=== PATIENT | female | born 1950 | race Caucasian/White ===

== ENCOUNTER 2019-08-11 14:56 | Emergency (ER) | payer MEDICARE ==
[2019-08-11 15:01] VITALS: TEMP 98.9
[2019-08-11] MEDS ORDERED: SODIUM CHLORIDE 0.9% 500 ML 500 ML IV STA (15:08)
[2019-08-11] MEDS ORDERED: IPRATROPIUM 0.5 MG/2.5 ML NEBU INHALATION STA (15:08)
[2019-08-11] MEDS ORDERED: ALBUTEROL NEBULIZED 2.5 MG/3 ML INHALATION STA (15:08)
[2019-08-11] MEDS ORDERED: methylPREDNISolone SOD SUCCI 125 MG/2 ML VIAL IV STA (15:08)
--- NOTE | 2019-08-11 15:22 | ED ---
General Adult HPI - General Chief complaint: Shortness of Breath Stated complaint: heart issues Time Seen by Provider: 08/11/19 15:03 Source: patient, EMS, RN notes reviewed, old records reviewed Mode of arrival: EMS Limitations: no limitations - History of Present Illness Initial comments: 69-year-old female history of COPD presenting for evaluation of palpitations and dyspnea. Patient was at home, she suddenly felt palpitations without chest pain. She does have baseline dyspnea secondary to COPD. She is not currently on home oxygen. She has cough which is at baseline. She denies fever. She denies URI symptoms. She denies abdominal pain nausea vomiting. Denies lower extremity pain or swelling. No history of DVT or PE. - Related Data Home Medications Medication Instructions Recorded Confirmed Apixaban [Eliquis] 5 mg PO BID 08/11/19 08/11/19 Atorvastatin Calcium [Lipitor] 10 mg PO HS 08/11/19 08/11/19 Citalopram Hydrobromide [CeleXA] 20 mg PO DAILY 08/11/19 08/11/19 Diltiazem HCl 30 mg PO Q6H 08/11/19 08/11/19 HYDROcodone/APAP 7.5-325MG [[place] 1 tab PO TID 08/11/19 08/11/19 7.5-325] Insulin NPH Hum/Reg Insulin Hm 20 units SQ BID 08/11/19 08/11/19 [Novolin 70-30 Flexpen] Isosorbide Mononitrate [Isosorbide 30 mg PO DAILY 08/11/19 08/11/19 Mononitrate ER] Metoprolol Succinate (ER) [Toprol 50 mg PO DAILY 08/11/19 08/11/19 Xl] Omeprazole 20 mg PO DAILY PRN 08/11/19 08/11/19 Thyroid,Pork [[place] Thyroid] 180 mg PO DAILY 08/11/19 08/11/19 metFORMIN HCL 1,000 mg PO BID 08/11/19 08/11/19 Previous Rx's Medication Instructions Recorded Azithromycin [Zithromax Z-pack] 0 mg PO DIRECTED #6 tab 08/11/19 Allergies Allergy/AdvReac Type Severity Reaction Status Date / Time Iodinated Contrast Media Allergy Anaphylaxis Verified 08/11/19 16:13 moxifloxacin [From Avelox] Allergy Unknown Verified 08/11/19 16:13 Penicillins Allergy Anaphylaxis Verified 08/11/19 16:13 Review of Systems ROS Statement: Those systems with pertinent positive or pertinent negative responses have been documented in the HPI. ROS Other: All systems not noted in ROS Statement are negative. Past Medical History Past Medical History: COPD History of Any Multi-Drug Resistant Organisms: None Reported Past Surgical History: Breast Surgery, Cholecystectomy Past Psychological History: No Psychological Hx Reported Smoking Status: Current every day smoker Past Alcohol Use History: None Reported Past Drug Use History: None Reported General Exam Limitations: no limitations General appearance: alert, in distress Head exam: Present: atraumatic, normocephalic Eye exam: Present: normal appearance, PERRL ENT exam: Present: normal exam Neck exam: Present: normal inspection. Absent: tenderness, meningismus Respiratory exam: Present: respiratory distress, wheezes, rhonchi, decreased breath sounds Cardiovascular Exam: Present: normal rhythm, tachycardia GI/Abdominal exam: Present: soft. Absent: distended, tenderness, guarding, rebound Extremities exam: Present: normal inspection, normal capillary refill. Absent: pedal edema, calf tenderness Back exam: Present: normal inspection Neurological exam: Present: alert, oriented X3 Psychiatric exam: Present: anxious Skin exam: Present: intact, diaphoretic. Absent: cyanosis Course Vital Signs 08/11/19 08/11/19 08/11/19 14:58 15:01 15:04 Temperature 98.9 F Pulse Rate 101 H Respiratory 24 24 Rate Blood Pressure 134/79 O2 Sat by Pulse 88 L 93 L Oximetry 08/11/19 08/11/19 08/11/19 15:29 15:40 16:00 Temperature Pulse Rate 112 H 103 H 99 Respiratory 24 Rate Blood Pressure 117/68 O2 Sat by Pulse 93 L Oximetry 08/11/19 16:34 Temperature Pulse Rate 98 Respiratory 16 Rate Blood Pressure 133/72 O2 Sat by Pulse 95 Oximetry EKG Findings - EKG Comments: EKG Findings:: EKG: Sinus tachycardia rate of 109, CO interval 168 QRS duration 70, QTC 447, no ST segment elevation, poor baseline with artifact Medical Decision Making - Medical Decision Making 69-year-old female presenting with cough, dyspnea, palpitations. Patient's found to be in sinus rhythm with moderate respiratory distress on evaluation. She has a bronchospastic cough and wheezing throughout. Workup is initiated r evealing leukocytosis 13.7, stable hemoglobin. Mild lactic acid of 2.6. She has a d-dimer which is elevated at 1.[address] angiography emergency department. She has a negative troponin negative BMP. Chest x-ray showing concern for nodularity and possible metastatic lung disease. CT was performed given the elevated d-dimer and chest x-ray findings. Status show multiple pulmonary nodules and both hilar and mediastinal lymphadenopathy. My initial plan was to admit this patient with pulmonology and oncology on consult. Patient declines. Further history from the patient does indicate that she has a planned appointment with oncology for later this month. She prefers to maint ain this appointment and does not want to be admitted at this time. She states her breathing is improved and she wishes to be discharged. I recommended antibiotics and steroids for her COPD she declines steroids. - Lab Data Result diagrams: 08/11/19 15:10 08/11/19 15:10 Lab Results 08/11/19 08/11/19 08/11/19 Range/Units 15:10 15:10 15:10 WBC 13.7 H (3.8-10.6) k/uL RBC 5.17 (3.80-5.40) m/uL Hgb 14.0 (11.4-16.0) gm/dL Hct 43.8 (34.0-46.0) % MCV 84.6 (80.0-100.0) fL MCH 27.0 (25.0-35.0) pg MCHC 31.9 (31.0-37.0) g/dL RDW 14.0 (11.5-15.5) % Plt Count 479 H (150-450) k/uL Neutrophils % 82 % Lymphocytes % 9 % Monocytes % 5 % Eosinophils % 3 % Basophils % 0 % Neutrophils # 11.2 H (1.3-7.7) k/uL Lymphocytes # 1.2 (1.0-4.8) k/uL Monocytes # 0.6 (0-1.0) k/uL Eosinophils # 0.5 (0-0.7) k/uL Basophils # 0.0 (0-0.2) k/uL Hypochromasia Slight PT 9.6 (9.0-12.0) sec INR 0.9 (<1.2) APTT 23.7 (22.0-30.0) sec D-Dimer 1.73 H (<0.60) mg/L FEU Sodium 132 L (137-145) mmol/L Potassium 4.1 (3.5-5.1) mmol/L Chloride 95 L (98-107) mmol/L Carbon Dioxide 30 (22-30) mmol/L Anion Gap 7 mmol/L BUN 7 (7-17) mg/dL Creatinine 0.52 (0.52-1.04) mg/dL Est GFR (CKD-EPI)AfAm >90 (>60 ml/min/1.73 sqM) Est GFR (CKD-EPI)NonAf >90 (>60 ml/min/1.73 sqM) Glucose 153 H (74-99) mg/dL Plasma Lactic Acid Severo (0.7-2.0) mmol/L Calcium 9.0 (8.4-10.2) mg/dL Magnesium 1.7 (1.6-2.3) mg/dL Total Bilirubin 0.5 (0.2-1.3) mg/dL AST 24 (14-36) U/L ALT 10 (4-34) U/L Alkaline Phosphatase 146 H (38-126) U/L Troponin I (0.000-0.034) ng/mL NT-Pro-B Natriuret Pep pg/mL Total Protein 7.0 (6.3-8.2) g/dL Albumin 3.8 (3.5-5.0) g/dL 08/11/19 08/11/19 08/11/19 Range/Units 15:10 15:10 15:10 WBC (3.8-10.6) k/uL RBC (3.80-5.40) m/uL Hgb (11.4-16.0) gm/dL Hct (34.0-46.0) % MCV (80.0-100.0) fL MCH (25.0-35.0) pg MCHC (31.0-37.0) g/dL RDW (11.5-15.5) % Plt Count (150-450) k/uL Neutrophils % % Lymphocytes % % Monocytes % % Eosinophils % % Basophils % % Neutrophils # (1.3-7.7) k/uL Lymphocytes # (1.0-4.8) k/uL Monocytes # (0-1.0) k/uL Eosinophils # (0-0.7) k/uL Basophils # (0-0.2) k/uL Hypochromasia PT (9.0-12.0) sec INR (<1.2) APTT (22.0-30.0) sec D-Dimer (<0.60) mg/L FEU Sodium (137-145) mmol/L Potassium (3.5-5.1) mmol/L Chloride (98-107) mmol/L Carbon Dioxide (22-30) mmol/L Anion Gap mmol/L BUN (7-17) mg/dL Creatinine (0.52-1.04) mg/dL Est GFR (CKD-EPI)AfAm (>60 ml/min/1.73 sqM) Est GFR (CKD-EPI)NonAf (>60 ml/min/1.73 sqM) Glucose (74-99) mg/dL Plasma Lactic Acid Severo 2.6 H* (0.7-2.0) mmol/L Calcium (8.4-10.2) mg/dL Magnesium (1.6-2.3) mg/dL Total Bilirubin (0.2-1.3) mg/dL AST (14-36) U/L ALT (4-34) U/L Alkaline Phosphatase (38-126) U/L Troponin I <0.012 (0.000-0.034) ng/mL NT-Pro-B Natriuret Pep 394 pg/mL Total Protein (6.3-8.2) g/dL Albumin (3.5-5.0) g/dL Critical Care Time Critical Care Time: Yes Total Critical Care Time: 35 Disposition Clinical Impression: Acute exacerbation of chronic obstructive pulmonary disease, Pulmonary nodule, Mediastinal lymphadenopathy Disposition: HOME SELF-CARE Condition: Fair Instructions (If sedation given, give patient instructions): COPD (Chronic Obstructive Pulmonary Disease) (ED), Pulmonary Nodules (ED), Lymphadenopathy (ED) Additional Instructions: Please follow up with your planned oncology appointment. Please follow up with her primary care physician. Please return with worsening or changing symptoms. Prescriptions: Azithromycin [Zithromax Z-pack] 0 mg PO DIRECTED #6 tab Is patient prescribed a controlled substance at d/c from ED?: No Referrals: CamachoBela toribio DO [Primary Care Provider] - 1-2 days Time of Disposition: 17:49
[2019-08-11 15:27] LABS: Basophils % (A) 0 %; Eosinophils # (A) 0.5 k/uL (0-0.7); Eosinophils % (A) 3 %; HCT 43.8 % (34.0-46.0); Hypochromasia Slight; Lymphocytes # (A) 1.2 k/uL (1.0-4.8); Lymphocytes % (A) 9 %; MCHC 31.9 g/dL (31.0-37.0); MCV 84.6 fL (80.0-100.0); Monocytes # (A) 0.6 k/uL (0-1.0); Monocytes % (A) 5 %; Neutrophils # (A) 11.2 k/uL (1.3-7.7); Neutrophils % (A) 82 %; Platelet Count 479 k/uL (150-450); RBC 5.17 m/uL (3.80-5.40); WBC 13.7 k/uL (3.8-10.6)
[2019-08-11 15:38] LABS: ALT 10 U/L (4-34); AST 24 U/L (14-36); African American GFR (CKD) >90 (>60 ml/min/1.73 sqM); Albumin 3.8 g/dL (3.5-5.0); Alkaline Phosphatase 146 U/L (38-126); Anion Gap 7 mmol/L; Blood Urea Nitrogen 7 mg/dL (7-17); Carbon Dioxide 30 mmol/L (22-30); Chloride 95 mmol/L (98-107); Glucose 153 mg/dL (74-99); Magnesium 1.7 mg/dL (1.6-2.3); Non-African American GFR(CKD) >90 (>60 ml/min/1.73 sqM); Potassium 4.1 mmol/L (3.5-5.1); Sodium 132 mmol/L (137-145); Total Bilirubin 0.5 mg/dL (0.2-1.3)
[2019-08-11 15:41] LABS: INR 0.9 (<1.2); Partial Thromboplastin Time 23.7 sec (22.0-30.0); Prothrombin Time 9.6 sec (9.0-12.0)
[2019-08-11 15:42] LABS: D-Dimer 1.73 mg/L FEU (<0.60)
[2019-08-11] MEDS ORDERED: diphenhydrAMINE 50 MG/ML 1 ML VIAL IVP STA (16:17)
[2019-08-11] MEDS ORDERED: FAMOTIDINE 20 MG/2 ML VIAL IV STA (16:17)
[2019-08-11 16:36] VITALS: RESP 16
--- NOTE | 2019-08-11 16:44 | XR ---
EXAMINATION TYPE: XR chest 2V DATE OF EXAM: 08/11/2019 COMPARISON: NONE HISTORY: Tachycardia TECHNIQUE: 2 views FINDINGS: Heart and mediastinum are normal. There is a diffuse patchy nodular infiltrate throughout t he lungs. There is left-sided central venous catheter with the tip in the superior vena cava. There i s mild perihilar interstitial edema. There is no pleural effusion. There is no heart failure. IMPRESSION: Mild perihilar interstitial edema with nodular pulmonary infiltrate could relate to metas tatic disease. Normal heart.
--- NOTE | 2019-08-11 17:26 | CT ---
EXAMINATION TYPE: CT angio chest DATE OF EXAM: 08/11/2019 COMPARISON: None HISTORY: SOB, chest pain CT DLP: 342.5 mGycm Automated exposure control for dose reduction was used. CONTRAST: Performed with IV Contrast, patient injected with 68cc mL of Isovue 370. Multiple axial sections were obtained from the thoracic inlet to the diaphragm with intravenous contr ast. There are 3-D post processed images. There is mild emphysematous change in the upper lobes. There are numerous pulmonary nodules throughou t both lungs. Nodules are noncalcified and measure up to 13 mm. There is mild increased interstitial density in both lung casarez. Heart size is normal. There is no pericardial effusion. There are multiple enlarged bronchial lymph nodes that measure up to 2.5 cm. There is enlarged subcar inal lymph node that measures 3 cm. There is anterior mediastinal adenopathy with lymph nodes up to 2 cm. I see no filling defects in the pulmonary arteries. Thoracic aorta is atheromatous. There is no aneur ysm or dissection. Bony thorax appears intact. There is no compression fracture. There is low-density rounded 2 cm area anterior right kidney was probably a cortical cyst. Upper abdominal images show extensive retroperitoneal adenopathy with lymph nodes up to 2.5 cm around the upper abdominal aorta. There is also celiac and mesenteric lymphadenopathy. IMPRESSION: No evidence of pulmonary embolism. Extensive nodular density throughout both lungs consistent with me tastatic disease. Extensive mediastinal and bronchial adenopathy. Mild pulmonary emphysema. Upper abd ominal lymphadenopathy.
[2019-08-11 17:59] VITALS: BP 142/76; PULSE 97
== END 2019-08-11 17:58 | disposition home or self-care (01) ==
LOC: EC 14:56
DX: J44.1 Chronic obstructive pulmonary disease with (acute) exacerbation (principal); R91.1 Solitary pulmonary nodule; R59.0 Localized enlarged lymph nodes; F17.200 Nicotine dependence, unspecified, uncomplicated; Z79.01 Long term (current) use of anticoagulants; Z79.899 Other long term (current) drug therapy; Z79.4 Long term (current) use of insulin; Z79.890 Hormone replacement therapy; Z88.0 Allergy status to penicillin; Z88.1 Allergy status to other antibiotic agents; Z91.041 Radiographic dye allergy status
CPT/HCPCS: 36415; 94640; 93005; 85379; 83880; 80053; 83605; 83735; 84484; 85025; 85610; 85730; 71046; 71275; 99291; 96374; 96375 ×2; 96361 ×3; J1200; J2930; Q9967

== ENCOUNTER 2019-09-23 20:04 | Inpatient (IN) | payer MEDICARE, OTHER ==
[2019-09-23] MEDS ORDERED: SODIUM CHLORIDE 0.9% 1,000 ML IV STA ×2 (20:17→22:29)
--- NOTE | 2019-09-23 20:21 | ED ---
General Adult HPI - General Stated complaint: dehydration Time Seen by Provider: 09/23/19 20:11 Source: patient, RN notes reviewed, old records reviewed Mode of arrival: EMS Limitations: no limitations - History of Present Illness Initial comments: Patient is a pleasant 69-year-old female presenting to the emergency department with concerns for dehydration. Patient has reported active breast and lung cancer. Patient states she does have some mild abdominal discomfort however this is chronic and unchanged. Patient has had decreased appetite and oral intake recently. Patient is concerned she is dehydrated. Patient feels fatigued. No confusion. No vomiting or diarrhea. Patient has DO NOT RESUSCITATE papers. - Related Data Home Medications Medication Instructions Recorded Confirmed Apixaban [Eliquis] 5 mg PO BID 08/11/19 08/11/19 Atorvastatin Calcium [Lipitor] 10 mg PO HS 08/11/19 08/11/19 Citalopram Hydrobromide [CeleXA] 20 mg PO DAILY 08/11/19 08/11/19 Diltiazem HCl 30 mg PO Q6H 08/11/19 08/11/19 HYDROcodone/APAP 7.5-325MG [[place] 1 tab PO TID 08/11/19 08/11/19 7.5-325] Insulin NPH Hum/Reg Insulin Hm 20 units SQ BID 08/11/19 08/11/19 [Novolin 70-30 Flexpen] Isosorbide Mononitrate [Isosorbide 30 mg PO DAILY 08/11/19 08/11/19 Mononitrate ER] Metoprolol Succinate (ER) [Toprol 50 mg PO DAILY 08/11/19 08/11/19 Xl] Omeprazole 20 mg PO DAILY PRN 08/11/19 08/11/19 Thyroid,Pork [[place] Thyroid] 180 mg PO DAILY 08/11/19 08/11/19 metFORMIN HCL 1,000 mg PO BID 08/11/19 08/11/19 Previous Rx's Medication Instructions Recorded Azithromycin [Zithromax Z-pack] 0 mg PO DIRECTED #6 tab 08/11/19 Allergies Allergy/AdvReac Type Severity Reaction Status Date / Time Iodinated Contrast Media Allergy Anaphylaxis Verified 09/23/19 20:45 moxifloxacin [From Avelox] Allergy Unknown Verified 09/23/19 20:45 Penicillins Allergy Anaphylaxis Verified 05/18/20 20:45 Review of Systems ROS Statement: Those systems with pertinent positive or pertinent negative responses have been documented in the HPI. ROS Other: All systems not noted in ROS Statement are negative. Constitutional: Denies: fever Eyes: Denies: eye pain ENT: Denies: ear pain Respiratory: Denies: cough, dyspnea Cardiovascular: Denies: chest pain Endocrine: Reports: fatigue Gastrointestinal: Reports: as per HPI. Denies: vomiting Genitourinary: Denies: dysuria Musculoskeletal: Denies: back pain Skin: Denies: rash Neurological: Reports: as per HPI Past Medical History Past Medical History: COPD History of Any Multi-Drug Resistant Organisms: None Reported Past Surgical History: Breast Surgery, Cholecystectomy Past Psychological History: No Psychological Hx Reported Smoking Status: Current every day smoker Past Alcohol Use History: None Reported Past Drug Use History: None Reported General Exam Limitations: no limitations General appearance: alert, in no apparent distress Head exam: Present: normocephalic Eye exam: Present: normal appearance, PERRL ENT exam: Present: mucous membranes dry Neck exam: Present: normal inspection Respiratory exam: Present: normal lung sounds bilaterally Cardiovascular Exam: Present: regular rate, normal rhythm Expanded Peripheral pulses: 2+: Radial (R), Radial (L), Dorsalis Pedis (R), Dorsalis Pedis (L) GI/Abdominal exam: Present: soft. Absent: distended, tenderness, pulsatile mass Extremities exam: Present: normal inspection Neurological exam: Present: alert, oriented X3, CN II-XII intact. Absent: motor sensory deficit Expanded Neurological exam: Present: protecting the airway Patient oriented to: Present: person, place, time Speech: Present: fluid speech Cranial nerves: EOM's Intact: Normal Motor strength exam: RUE: 5, LUE: 5, RLE: 5, LLE: 5 Eye Response: (4) open spontaneously Motor Response: (6) obeys commands Verbal Response: (5) oriented Psychiatric exam: Present: normal affect, normal mood Skin exam: Present: normal color Course Vital Signs 09/23/19 09/23/19 09/23/19 20:05 21:00 22:00 Temperature 98.3 F Pulse Rate 93 91 89 Respiratory 16 18 16 Rate Blood Pressure 90/39 87/47 87/49 O2 Sat by Pulse 95 95 96 Oximetry EKG Findings - EKG Comments: EKG Findings:: Normal sinus rhythm 94. TX 152. QRS 82. QT 364. QTC 455. Normal axis. T-wave inversion inferior and lead V6. Medical Decision Making - Medical Decision Making Patient reevaluated and updated. Patient is agreeable to admission. Systolic blood pressure 89. Patient given 1 L fluid bolus. Case was discussed in detail with Dr. Bailey who is familiar with this patient. He will admit. He does request consult with Dr. John as well as Dr. Sloan for possible biopsy of lymph nodes of right groin or left cervical region. - Lab Data Result diagrams: 09/23/19 20:31 09/23/19 20:31 Lab Results 09/23/19 09/23/19 09/23/19 Range/Units 20:29 20:31 20:31 WBC 11.6 H (3.8-10.6) k/uL RBC 3.57 L (3.80-5.40) m/uL Hgb 9.5 L (11.4-16.0) gm/dL Hct 30.8 L (34.0-46.0) % MCV 86.4 (80.0-100.0) fL MCH 26.7 (25.0-35.0) pg MCHC 30.9 L (31.0-37.0) g/dL RDW 18.5 H (11.5-15.5) % Plt Count 477 H (150-450) k/uL Neutrophils % 90 % Lymphocytes % 4 % Monocytes % 4 % Eosinophils % 1 % Basophils % 0 % Neutrophils # 10.4 H (1.3-7.7) k/uL Lymphocytes # 0.5 L (1.0-4.8) k/uL Monocytes # 0.5 (0-1.0) k/uL Eosinophils # 0.1 (0-0.7) k/uL Basophils # 0.0 (0-0.2) k/uL Hypochromasia Slight Anisocytosis Slight PT 20.3 H (9.0-12.0) sec INR 2.1 H (<1.2) APTT 32.8 H (22.0-30.0) sec Sodium (137-145) mmol/L Potassium (3.5-5.1) mmol/L Chloride (98-107) mmol/L Carbon Dioxide (22-30) mmol/L Anion Gap mmol/L BUN (7-17) mg/dL Creatinine (0.52-1.04) mg/dL Est GFR (CKD-EPI)AfAm (>60 ml/min/1.73 sqM) Est GFR (CKD-EPI)NonAf (>60 ml/min/1.73 sqM) Glucose (74-99) mg/dL POC Glucose (mg/dL) 101 H (75-99) mg/dL POC Glu Foot Worker ID Abreu, Lizzy Plasma Lactic Acid Severo (0.7-2.0) mmol/L Calcium (8.4-10.2) mg/dL Magnesium (1.6-2.3) mg/dL Total Bilirubin (0.2-1.3) mg/dL AST (14-36) U/L ALT (4-34) U/L Alkaline Phosphatase (38-126) U/L Total Protein (6.3-8.2) g/dL Albumin (3.5-5.0) g/dL Urine Color Urine Appearance (Clear) Urine pH (5.0-8.0) Ur Specific [place] (1.001-1.035) Urine Protein (Negative) Urine Glucose (UA) (Negative) Urine Ketones (Negative) Urine Blood (Negative) Urine Nitrite (Negative) Urine Bilirubin (Negative) Urine Urobilinogen (<2.0) mg/dL Ur Leukocyte Esterase (Negative) Urine RBC (0-5) /hpf Urine WBC (0-5) /hpf Ur Squamous Epith Cells (0-4) /hpf Amorphous Sediment (None) /hpf Urine Bacteria (None) /hpf Hyaline Casts (0-2) /lpf Urine Mucus (None) /hpf 09/23/19 09/23/19 09/23/19 Range/Units 20:31 20:31 21:30 WBC (3.8-10.6) k/uL RBC (3.80-5.40) m/uL Hgb (11.4-16.0) gm/dL Hct (34.0-46.0) % MCV (80.0-100.0) fL MCH (25.0-35.0) pg MCHC (31.0-37.0) g/dL RDW (11.5-15.5) % Plt Count (150-450) k/uL Neutrophils % % Lymphocytes % % Monocytes % % Eosinophils % % Basophils % % Neutrophils # (1.3-7.7) k/uL Lymphocytes # (1.0-4.8) k/uL Monocytes # (0-1.0) k/uL Eosinophils # (0-0.7) k/uL Basophils # (0-0.2) k/uL Hypochromasia Anisocytosis PT (9.0-12.0) sec INR (<1.2) APTT (22.0-30.0) sec Sodium 133 L (137-145) mmol/L Potassium 4.7 (3.5-5.1) mmol/L Chloride 96 L (98-107) mmol/L Carbon Dioxide 23 (22-30) mmol/L Anion Gap 14 mmol/L BUN 56 H (7-17) mg/dL Creatinine 2.57 H (0.52-1.04) mg/dL Est GFR (CKD-EPI)AfAm 21 (>60 ml/min/1.73 sqM) Est GFR (CKD-EPI)NonAf 19 (>60 ml/min/1.73 sqM) Glucose 91 (74-99) mg/dL POC Glucose (mg/dL) (75-99) mg/dL POC Glu Foot Worker ID Plasma Lactic Acid Severo 4.0 H* (0.7-2.0) mmol/L Calcium 8.3 L (8.4-10.2) mg/dL Magnesium 1.6 (1.6-2.3) mg/dL Total Bilirubin 0.5 (0.2-1.3) mg/dL AST 73 H (14-36) U/L ALT 26 (4-34) U/L Alkaline Phosphatase 215 H (38-126) U/L Total Protein 5.4 L (6.3-8.2) g/dL Albumin 3.0 L (3.5-5.0) g/dL Urine Color Yellow Urine Appearance Cloudy H (Clear) Urine pH 5.0 (5.0-8.0) Ur Specific [place] 1.024 (1.001-1.035) Urine Protein 2+ H (Negative) Urine Glucose (UA) Negative (Negative) Urine Ketones Trace H (Negative) Urine Blood Negative (Negative) Urine Nitrite Negative (Negative) Urine Bilirubin 1+ H (Negative) Urine Urobilinogen 2.0 (<2.0) mg/dL Ur Leukocyte Esterase Negative (Negative) Urine RBC 2 (0-5) /hpf Urine WBC 5 (0-5) /hpf Ur Squamous Epith Cells 2 (0-4) /hpf Amorphous Sediment Rare H (None) /hpf Urine Bacteria Moderate H (None) /hpf Hyaline Casts 6 H (0-2) /lpf Urine Mucus Few H (None) /hpf - Radiology Data Radiology results: image reviewed (Chest x-ray shows multiple pulmonary nodules, worsening from previous. Development of [id number] left pleural effusion. Abdominal x-ray shows nonspecific abdomen.) Disposition Clinical Impression: Dehydration, Multiple lung nodules, Pleural effusion Disposition: ADMITTED IP TO THIS HOSP Condition: Serious Is patient prescribed a controlled substance at d/c from ED?: No Referrals: Willard Bailey MD [Primary Care Provider] - 1-2 days Decision Time: 22:31
[2019-09-23 20:36] LABS: Glucose,Whole Blood 101 mg/dL (75-99)
[2019-09-23 20:48] LABS: Anisocytosis Slight; Basophils % (A) 0 %; Eosinophils # (A) 0.1 k/uL (0-0.7); Eosinophils % (A) 1 %; HCT 30.8 % (34.0-46.0); HGB 9.5 gm/dL (11.4-16.0); Hypochromasia Slight; Lymphocytes # (A) 0.5 k/uL (1.0-4.8); Lymphocytes % (A) 4 %; MCH 26.7 pg (25.0-35.0); MCHC 30.9 g/dL (31.0-37.0); MCV 86.4 fL (80.0-100.0); Mean Platelet Volume 8.4; Monocytes # (A) 0.5 k/uL (0-1.0); Monocytes % (A) 4 %; Neutrophils # (A) 10.4 k/uL (1.3-7.7); Neutrophils % (A) 90 %; Platelet Count 477 k/uL (150-450); RBC 3.57 m/uL (3.80-5.40); RDW 18.5 % (11.5-15.5); WBC 11.6 k/uL (3.8-10.6)
[2019-09-23 20:59] LABS: Calcium 8.3 mg/dL (8.4-10.2); Magnesium 1.6 mg/dL (1.6-2.3); Potassium 4.7 mmol/L (3.5-5.1); Total Bilirubin 0.5 mg/dL (0.2-1.3); Total Protein 5.4 g/dL (6.3-8.2)
[2019-09-23 21:04] LABS: INR 2.1 (<1.2); Partial Thromboplastin Time 32.8 sec (22.0-30.0); Prothrombin Time 20.3 sec (9.0-12.0)
--- NOTE | 2019-09-23 21:25 | XR ---
EXAMINATION TYPE: XR chest 2V DATE OF EXAM: 09/23/2019 COMPARISON: 08/11/2019 INDICATION: Weakness lung and breast cancer TECHNIQUE: Frontal and lateral views of the chest are obtained. FINDINGS: The heart size is normal. The pulmonary vasculature is indistinct. Patchy densities are present throughout the bilateral lung casarez can be compatible with metastatic d isease. Findings appear to be worsening over the interval. Small left pleural effusion has developed. Port is present on the left with the tip in the superior vena cava region.. IMPRESSION: 1. Developing multiple pulmonary nodules worsening from comparison. 2. Interval development of a small approaching moderate left pleural effusion.
--- NOTE | 2019-09-23 21:26 | XR ---
EXAMINATION TYPE: XR abdomen 1V DATE OF EXAM: 09/23/2019 COMPARISON: None INDICATION: Abdomen pain history of breast and lung cancer TECHNIQUE: Single view abdomen frontal projection supine view FINDINGS: Nonspecific bowel gas is present within small bowel loops. Air is within the colon. Psoas margins are normal. No organomegaly is present. Right hip prosthesis is present. Vascular calcification is in the splenic artery. Note is again made of multiple pulmonary nodules and a small to moderate left pleural effusion at the lung bases IMPRESSION: 1. Nonspecific abdomen. 2. Please also see chest x-ray from same date
[2019-09-23 22:02] LABS: Amorphous Sediment,Urine Rare /hpf; Appearance,Urine Cloudy (Clear); Bacteria,Urine Moderate /hpf; Bilirubin,Urine 1+ (Negative); Blood,Urine Negative (Negative); Color,Urine Yellow; Glucose,Urine (UA) Negative (Negative); Hyaline Casts,Urine 6 /lpf (0-2); Ketones,Urine Trace (Negative); Leukocyte Esterase,Urine Negative (Negative); Mucus,Urine Few /hpf; Nitrite,Urine Negative (Negative); Protein,Urine 2+ (Negative); RBC,Urine 2 /hpf (0-5); Specific Gravity,Urine 1.024 (1.001-1.035); Squamous Epithelial Cell,Urine 2 /hpf (0-4); WBC,Urine 5 /hpf (0-5)
[2019-09-23] MEDS ORDERED: NALOXONE 0.4 MG/ML 1 ML VIAL IV PRN (22:33)
[2019-09-23] MEDS: SODIUM CHLORIDE 0.9% 1,000 ML IV SCH (23:31)
[2019-09-24] MEDS ORDERED: HYDROcodone/APAP 10-325MG 1 EACH TAB PO ONE (02:32)
[2019-09-24 04:04] LABS: Anisocytosis Slight; Basophils % (A) 0 %; Eosinophils # (A) 0.1 k/uL (0-0.7); Eosinophils % (A) 1 %; HCT 31.1 % (34.0-46.0); HGB 9.3 gm/dL (11.4-16.0); Hypochromasia Marked; Lymphocytes # (A) 0.4 k/uL (1.0-4.8); Lymphocytes % (A) 3 %; MCH 26.3 pg (25.0-35.0); MCHC 29.9 g/dL (31.0-37.0); MCV 88.1 fL (80.0-100.0); Mean Platelet Volume 7.9; Monocytes # (A) 0.5 k/uL (0-1.0); Monocytes % (A) 4 %; Neutrophils # (A) 10.9 k/uL (1.3-7.7); Neutrophils % (A) 90 %; Platelet Count 435 k/uL (150-450); RBC 3.53 m/uL (3.80-5.40); RDW 18.3 % (11.5-15.5)
[2019-09-24 04:26] LABS: Albumin 2.5 g/dL (3.5-5.0); Calcium 7.5 mg/dL (8.4-10.2); Potassium 4.4 mmol/L (3.5-5.1); Total Bilirubin 0.4 mg/dL (0.2-1.3); Total Protein 4.8 g/dL (6.3-8.2)
[2019-09-24] MEDS: PANTOPRAZOLE 40 MG/10 ML VIAL IV SCH (09:55)
[2019-09-24] MEDS ORDERED: MAGNESIUM HYDROXIDE 2,400 MG/10 ML CUP PO PRN (10:00)
[2019-09-24] MEDS ORDERED: LOPERAMIDE 2 MG CAP PO PRN (10:00)
[2019-09-24] MEDS ORDERED: ACETAMINOPHEN TAB 325 MG TAB PO PRN (10:00)
[2019-09-24] MEDS ORDERED: BISACODYL 10 MG SUPP RECTAL PRN (10:00)
[2019-09-24] MEDS: HYDROcodone/APAP 10-325MG 1 EACH TAB PO PRN ×2 (10:27→19:05)
[2019-09-24] MEDS ORDERED: MAGIC CUP PO SCH (12:00)
--- NOTE | 2019-09-24 13:18 | P.HPIM ---
History of Present Illness H&P Date: 09/24/19 Chief Complaint: Hypotension, tachycardia This is a 69-year-old female patient of Dr. Bailey with past medical history of severe COPD and chronic hypoxic respiratory failure, bilateral pulmonary nodules with mediastinal adenopathy and intra-abdominal adenopathy consistent with metastatic disease most likely breast cancer with metastasis, history of left breast cancer and bilateral mastectomies in 2006 followed by chemotherapy and tamoxifen therapy, paroxysmal atrial fibrillation on long-term anticoagulation with eliquis, history of MA and coronary artery disease, hypertension, hyperlipidemia, generalized anxiety disorder, diabetes mellitus type 2, hypothyroidism, generalized osteoarthritis. Patient had a recent right hip fracture secondary to fall status post right hemiarthroplasty on August 25 surgery done at [facility] with Dr. Arciniega and subsequently discharged to [facility] under the care of Dr. Bailey for subacute rehab. Patient was prepared for discharge from rehab yesterday but was found to have a low blood pressure and high heart rate, mental status changes, generalized weakness and inability to stand. Discharge was held and patient was transferred to [facility] for further evaluation. Regarding patient's cancer history, she was followed at [facility] by oncology and apparently had a biopsy done and results were not known. Echocardiogram done on August 25 revealed normal LV function. No valvular heart disease. In the emergency center, patient was found to be afebrile, initial blood pressure 87/47, heart rate in the 90s, pulse ox 95% on room air. WBC 11.6, hemoglobin 9.5, platelet count 477. Sodium 133, potassium 4.7, chloride 96, CO2 23, BUN 56 creatinine 2.57, blood sugar 91. INR 2.1. Lactic acid 4.0. Total bilirubin 0.5, AST 73, ALT 26, alkaline phosphatase 215. Urinalysis cloudy nitrate and leukoesterase negative, bacteria moderate. EKG was a sinus rhythm with T-wave inversion in leads 6. Chest x-ray revealed developing multiple pulmonary nodules worsening from comparison. Interval development of a small approaching moderate left pleural effusion. This was compared to chest x-ray from August 10. Abdominal x-ray revealed nonspecific abdomen. Patient is status post 2 L of IV fluids, admitted to the cardiac stepdown unit and consult requested with Dr. Mackey regarding metastatic disease, Dr. Grider for lymph node biopsy, Dr. De La Vega for lung cancer. COVID-19 testing is pending. Patient states that she wishes to BE a no CODE STATUS. There apparently has been talk of hospice care for the patient. Review Of Systems: Constitutional: No fever, no chills, no night sweats. No weight change. Reports weakness, Reportsfatigue Reports lethargy. Reports daytime sleepiness. EENT: No headache. No blurred vision or double vision, no loss of vision. No loss of Hearing, no ringing in the ears, no dizziness. No nasal drainage or congestion. No epistaxis. No sore throat. Lungs: No shortness of breath, cough, no sputum production. No wheezing. Cardiovascular: No chest pain, no lower extremity edema. No palpitations. No paroxysmal nocturnal dyspnea. No orthopnea. Reports lightheadedness or dizziness. No syncopal episodes. Abdominal: No abdominal pain. No nausea, vomiting. No diarrhea. No constipation. No bloody or tarry stools. No loss of appetite. Genitourinary: No dysuria, increased frequency, urgency. No urinary retention. Musculoskeletal: Reports myalgias. Reports muscle weakness, Reports gait dysfunction, no frequent falls. Reports back pain. No neck pain. Integumentary: Reports wounds, no lesions. No rash or pruritus. No unusual bruising. Neurologic: No aphasia. No facial droop. Reports change in mentation. No head injury. No headache. No paralysis. No paresthesia. Psychiatric: No depression. No anxiety. No mood swings. Endocrine: No abnormal blood sugars. No weight change. No excessive sweating or thirst. No cold intolerance. Past Medical History Past Medical History: COPD Additional Past Medical History / Comment(s): breast and lung cancer History of Any Multi-Drug Resistant Organisms: None Reported Past Surgical History: Breast Surgery, Cholecystectomy Past Psychological History: No Psychological Hx Reported Smoking Status: Current every day smoker Past Alcohol Use History: None Reported Additional Past Alcohol Use History / Comment(s): Patient is a smoker of 2 packs per day for 45 years, currently at a half a pack per day. She denies any alcohol use, marijuana, street drug use. Past Drug Use History: None Reported - Past Family History Father Additional Family Medical History / Comment(s): Patient states that she does not remember her mother or father's medical history, cause of . Brother(s) Additional Family Medical History / Comment(s): Patient states that she has 4 or 5 siblings and one half brother had lung cancer. Patient has 2 daughters which she reports is having no major medical problems. Medications and Allergies Home Medications Medication Instructions Recorded Confirmed Type Apixaban [Eliquis] 5 mg PO BID@0800,1700 08/11/19 09/23/19 History Atorvastatin Calcium [Lipitor] 10 mg PO HS@2100 08/11/19 09/23/19 History Citalopram Hydrobromide [CeleXA] 20 mg PO DAILY@0800 08/11/19 09/23/19 History Insulin NPH Hum/Reg Insulin Hm 5 units SQ BID@0800,1700 08/11/19 09/23/19 History [Novolin 70-30 Flexpen] Isosorbide Mononitrate [Isosorbide 30 mg PO DAILY@0800 08/11/19 09/23/19 History Mononitrate ER] Thyroid,Pork [[place] Thyroid] 180 mg PO DAILY@0600 08/11/19 09/23/19 History metFORMIN HCL 1,000 mg PO BID@0800,1700 08/11/19 09/23/19 History Acetaminophen [Tylenol] 650 mg PO Q4H PRN 09/23/19 09/23/19 History Bisacodyl [Dulcolax] 10 mg RECTAL DAILY PRN 09/23/19 09/23/19 History Docusate [Colace] 100 mg PO BID@0800,1700 09/23/19 09/23/19 History HYDROcodone/APAP 10-325MG [[place] 1 tab PO Q6HR PRN 09/23/19 09/23/19 History 10-325] Loperamide HCl [Imodium A-D] 2 - 4 mg PO DIRECTED PRN 09/23/19 09/23/19 History Magic Cup 1 can PO TID@0800,1200,1700 09/23/19 09/23/19 History Magnesium Hydroxide [Milk of 2,400 mg PO DAILY PRN 09/23/19 09/23/19 History Magnesia] Metoprolol Succinate [Toprol XL] 25 mg PO DAILY@0800 09/23/19 09/23/19 History Mirtazapine [Remeron] 15 mg PO HS@2100 09/23/19 09/23/19 History Na Phos,M-B/Na Phos,Di-Ba [Fleet 133 ml RECTAL DAILY PRN 09/23/19 09/23/19 History Adult] Nicotine 14Mg/24Hr Patch [Habitrol 1 patch TRANSDERM DAILY@0800 09/23/19 09/23/19 History 14Mg/24Hr Patch] traMADol HCL 50 mg PO Q6H PRN 09/23/19 09/23/19 History Allergies Allergy/AdvReac Type Severity Reaction Status Date / Time Iodinated Contrast Media Allergy Anaphylaxis Verified 09/23/19 22:45 moxifloxacin [From Avelox] Allergy Unknown Verified 09/23/19 22:45 Penicillins Allergy Anaphylaxis Verified 09/23/19 22:45 Physical Exam Vitals: Vital Signs Temp Pulse Resp BP Pulse Ox 09/24/19 09:44 86 16 102/57 98 09/24/19 07:37 85 18 106/62 97 09/24/19 06:00 98.1 F 85 16 98/59 96 09/24/19 05:32 88 16 93/56 98 09/24/19 05:00 84 16 88/52 100 09/24/19 04:37 86 16 96/61 99 09/24/19 04:00 105 H 16 92/50 96 09/24/19 03:00 87 16 91/49 96 09/24/19 00:00 85 16 100/53 95 09/23/19 23:00 88 16 94/47 09/23/19 22:00 89 16 87/49 96 09/23/19 21:00 91 18 87/47 95 09/23/19 20:05 98.3 F 93 16 90/39 95 Intake and Output 09/23/19 09/24/19 09/24/19 22:59 06:59 14:59 Other: Weight 81.647 kg Gen: This is a 69-year-old female. She is resting in the ER stretcher and appears to be quite anxious. She denies any pain at the time of evaluation. HEENT: Head is atraumatic, normocephalic. Pupils equal, round. Sclerae is anicteric. NECK: Supple. No JVD. Large cervical lymphadenopathy. No thyromegaly. LUNGS: Diminished breath sounds bilaterally, symmetrical chest expansion, no wheezes, rhonchi. No intercostal retractions. HEART: Irregular rate and rhythm. No murmur. ABDOMEN: Soft. Bowel sounds are present. No masses. No tenderness. EXTREMITIES: No pedal edema. No calf tenderness. Patient has large lymph node to the right groin, several lymph nodes enlarged in the left groin NEUROLOGICAL: Patient is awake, alert and oriented x3, poor short-term memory, intermittently confused, poor historian. Cranial nerves 2 through 12 are grossly intact. Generalized weakness Results CBC & Chem 7: 09/25/19 06:59 09/25/19 06:59 Labs: Abnormal Lab Results - Last 24 Hours (Table) 09/23/19 09/23/19 09/23/19 Range/Units 20:29 20:31 20:31 WBC 11.6 H (3.8-10.6) k/uL RBC 3.57 L (3.80-5.40) m/uL Hgb 9.5 L (11.4-16.0) gm/dL Hct 30.8 L (34.0-46.0) % MCHC 30.9 L (31.0-37.0) g/dL RDW 18.5 H (11.5-15.5) % Plt Count 477 H (150-450) k/uL Neutrophils # 10.4 H (1.3-7.7) k/uL Lymphocytes # 0.5 L (1.0-4.8) k/uL PT 20.3 H (9.0-12.0) sec INR 2.1 H (<1.2) APTT 32.8 H (22.0-30.0) sec Sodium (137-145) mmol/L Chloride (98-107) mmol/L BUN (7-17) mg/dL Creatinine (0.52-1.04) mg/dL POC Glucose (mg/dL) 101 H (75-99) mg/dL Plasma Lactic Acid Severo (0.7-2.0) mmol/L Calcium (8.4-10.2) mg/dL AST (14-36) U/L Alkaline Phosphatase (38-126) U/L Total Protein (6.3-8.2) g/dL Albumin (3.5-5.0) g/dL Urine Appearance (Clear) Urine Protein (Negative) Urine Ketones (Negative) Urine Bilirubin (Negative) Amorphous Sediment (None) /hpf Urine Bacteria (None) /hpf Hyaline Casts (0-2) /lpf Urine Mucus (None) /hpf 09/23/19 09/23/19 09/23/19 Range/Units 20:31 20:31 21:30 WBC (3.8-10.6) k/uL RBC (3.80-5.40) m/uL Hgb (11.4-16.0) gm/dL Hct (34.0-46.0) % MCHC (31.0-37.0) g/dL RDW (11.5-15.5) % Plt Count (150-450) k/uL Neutrophils # (1.3-7.7) k/uL Lymphocytes # (1.0-4.8) k/uL PT (9.0-12.0) sec INR (<1.2) APTT (22.0-30.0) sec Sodium 133 L (137-145) mmol/L Chloride 96 L (98-107) mmol/L BUN 56 H (7-17) mg/dL Creatinine 2.57 H (0.52-1.04) mg/dL POC Glucose (mg/dL) (75-99) mg/dL Plasma Lactic Acid Severo 4.0 H* (0.7-2.0) mmol/L Calcium 8.3 L (8.4-10.2) mg/dL AST 73 H (14-36) U/L Alkaline Phosphatase 215 H (38-126) U/L Total Protein 5.4 L (6.3-8.2) g/dL Albumin 3.0 L (3.5-5.0) g/dL Urine Appearance Cloudy H (Clear) Urine Protein 2+ H (Negative) Urine Ketones Trace H (Negative) Urine Bilirubin 1+ H (Negative) Amorphous Sediment Rare H (None) /hpf Urine Bacteria Moderate H (None) /hpf Hyaline Casts 6 H (0-2) /lpf Urine Mucus Few H (None) /hpf 09/24/19 09/24/19 09/24/19 Range/Units 00:09 03:42 03:42 WBC 12.0 H (3.8-10.6) k/uL RBC 3.53 L (3.80-5.40) m/uL Hgb 9.3 L (11.4-16.0) gm/dL Hct 31.1 L (34.0-46.0) % MCHC 29.9 L (31.0-37.0) g/dL RDW 18.3 H (11.5-15.5) % Plt Count (150-450) k/uL Neutrophils # 10.9 H (1.3-7.7) k/uL Lymphocytes # 0.4 L (1.0-4.8) k/uL PT (9.0-12.0) sec INR (<1.2) APTT (22.0-30.0) sec Sodium 136 L (137-145) mmol/L Chloride (98-107) mmol/L BUN 56 H (7-17) mg/dL Creatinine 2.51 H (0.52-1.04) mg/dL POC Glucose (mg/dL) (75-99) mg/dL Plasma Lactic Acid Severo 3.8 H* (0.7-2.0) mmol/L Calcium 7.5 L (8.4-10.2) mg/dL AST 73 H (14-36) U/L Alkaline Phosphatase 197 H (38-126) U/L Total Protein 4.8 L (6.3-8.2) g/dL Albumin 2.5 L (3.5-5.0) g/dL Urine Appearance (Clear) Urine Protein (Negative) Urine Ketones (Negative) Urine Bilirubin (Negative) Amorphous Sediment (None) /hpf Urine Bacteria (None) /hpf Hyaline Casts (0-2) /lpf Urine Mucus (None) /hpf 09/24/19 09/24/19 Range/Units 03:42 07:24 WBC (3.8-10.6) k/uL RBC (3.80-5.40) m/uL Hgb (11.4-16.0) gm/dL Hct (34.0-46.0) % MCHC (31.0-37.0) g/dL RDW (11.5-15.5) % Plt Count (150-450) k/uL Neutrophils # (1.3-7.7) k/uL Lymphocytes # (1.0-4.8) k/uL PT (9.0-12.0) sec INR (<1.2) APTT (22.0-30.0) sec Sodium (137-145) mmol/L Chloride (98-107) mmol/L BUN (7-17) mg/dL Creatinine (0.52-1.04) mg/dL POC Glucose (mg/dL) (75-99) mg/dL Plasma Lactic Acid Severo 3.1 H* 2.6 H* (0.7-2.0) mmol/L Calcium (8.4-10.2) mg/dL AST (14-36) U/L Alkaline Phosphatase (38-126) U/L Total Protein (6.3-8.2) g/dL Albumin (3.5-5.0) g/dL Urine Appearance (Clear) Urine Protein (Negative) Urine Ketones (Negative) Urine Bilirubin (Negative) Amorphous Sediment (None) /hpf Urine Bacteria (None) /hpf Hyaline Casts (0-2) /lpf Urine Mucus (None) /hpf Assessment and Plan Plan: 1. Acute renal failure and dehydration. Continue IV fluids at 100 mL per hour, avoid nephrotoxic agents, recheck electrolytes and renal function in the morning. 2. Metabolic encephalopathy with confusion most likely secondary to acute renal failure. 3. Pulmonary nodules with mediastinal adenopathy and intra-abdominal adenopathy consistent with metastatic disease most likely breast cancer with metastasis. Consult with Dr. Mackey and pulmonary medicine. Consult with Dr. Grider for biopsy. [place]. Patient has had some workup done at [facility]. Obtain records from [facility]. Patient may need CAT scan of the chest abdomen and pelvis once creatinine is improved 4. Left pleural effusion. This was noted at [facility] admission as well. 5. SIRS and lactic acidosis with leukocytosis, hypotension, tachycardia. Patient is status post 2 L of IV fluid. Continue IV fluid at 100 mL per hour. 6. Abdominal pain and elevated liver function tests. Suspicion for metastasis but elevated liver function tests may be due to hypotension, shock liver. Abd ominal film revealed nonspecific abdomen. Monitor liver function tests 7. Severe COPD and chronic hypoxic respiratory failure, stable. 8. Recent acute right hip fracture status post right hemiarthroplasty completed on August 25. 9. History of breast cancer and bilateral mastectomies in 2007 followed by chemotherapy and tamoxifen therapy. 10. Paroxysmal atrial fibrillation on long-term anticoagulation with eliquis. Hold eliquis for anticipated biopsy. Continue Toprol-XL 25 mg daily with parameters. 11. History of MA and coronary artery disease. Continue Imdur 30 mg daily. 12. Hypertension. Continue Toprol-XL with parameters. 13. Hyperlipidemia. Continue Lipitor 10 mg at bedtime. 14. Generalized anxiety disorder. Continue Celexa 20 mg daily, Remeron 15 mg at bedtime. 15. Diabetes mellitus type 2, insulin requiring. Continue NovoLog 7035 units twice daily, NovoLog scale. Hold metformin. 16. Hypothyroidism. Continue [place] Thyroid 180 mg daily 17. Tobacco use and dependence. Nicotine patch. 18. Moderate protein calorie malnutrition. Continue Magic cups, Remeron at bedtime. 19. GI prophylaxis. Protonix. 20. DVT prophylaxis. Patient will be resumed on eliquis once biopsy is completed. 21. COVID-19 infection not present. 22. Stage II decubitus ulcer to the sacrum. Present on admission. 23. Anemia. Iron studies ordered by oncology. CODE STATUS: No code per patient wishes Patient will be admitted to the hospital for a minimum of 2 night stay. Discharge plan: Return to [facility] Impression and plan of care have been directed as dictated by the signing physician. Solange Griffin nurse practitioner acting as scribe for signing physician.
--- NOTE | 2019-09-24 13:59 | P.CNPUL ---
History of Present Illness Consult date: 09/24/19 Requesting physician: Willard Bailey Reason for consult: abnormal CXR/CT Chief complaint: Generalized weakness, altered mental status History of present illness: This is a 69-year-old female patient who follows with Dr. Nuñez as her primary care provider. She has a history of diabetes mellitus, hypertension, hyperlipidemia, hypothyroidism, atrial fibrillation anticoagulated with Eliquis, coronary artery disease with previous HI, breast cancer with bilateral mastectomies in 2006. She also is known to have multiple pulmonary nodules, mediastinal adenopathy, abdominal lymphadenopathy. She had been seen by our group including Dr. De La Vega at one point in August 2019 and again later that sunita e month by Dr. Dominguez at [facility] after sustaining a hip fracture with surgical repair and subsequent transfer to [facility] for rehabilitation. Apparently she had done at [facility] prior to that. The details of which were unclear. The patient was quite confused as to whether or not she had any previous lung biopsy there as well. She was brought here to the emergency room last evening with concerns regarding dehydration. She had had a poor appetite and decreased oral intake while recovering in [facility]. She is seen today in consultation in the emergency room. She is currently awake and alert but somewhat confused to time and place. She is having some abdominal discomfort. Abdominal x-ray was nonspecific. Chest x-ray shows multiple pulmonary nodules worsening in comparison to 08/11/2019 and a small to moderate left pleural effusion. White count 12.0. Hemoglobin 9.3. Sodium 136. Potassium 4.4. BUN 56. Creatinine 2.51. Lactic acid 3.1. AST 73. ALT 26. Urine with moderate bacteria. CoVID 19 screen pending. Review of Systems ROS unobtainable: due to mental status Past Medical History Past Medical History: COPD Additional Past Medical History / Comment(s): breast and lung cancer History of Any Multi-Drug Resistant Organisms: None Reported Past Surgical History: Breast Surgery, Cholecystectomy Past Psychological History: No Psychological Hx Reported Smoking Status: Current every day smoker Past Alcohol Use History: None Reported Additional Past Alcohol Use History / Comment(s): Patient is a smoker of 2 packs per day for 45 years, currently at a half a pack per day. She denies any alcohol use, marijuana, street drug use. Past Drug Use History: None Reported - Past Family History Father Additional Family Medical History / Comment(s): Patient states that she does not remember her mother or father's medical history, cause of . Brother(s) Additional Family Medical History / Comment(s): Patient states that she has 4 or 5 siblings and one half brother had lung cancer. Patient has 2 daughters which she reports is having no major medical problems. Medications and Allergies Home Medications Medication Instructions Recorded Confirmed Type Apixaban [Eliquis] 5 mg PO BID@0800,1700 08/11/19 09/23/19 History Atorvastatin Calcium [Lipitor] 10 mg PO HS@2100 08/11/19 09/23/19 History Citalopram Hydrobromide [CeleXA] 20 mg PO DAILY@0800 08/11/19 09/23/19 History Insulin NPH Hum/Reg Insulin Hm 5 units SQ BID@0800,1700 08/11/19 09/23/19 History [Novolin 70-30 Flexpen] Isosorbide Mononitrate [Isosorbide 30 mg PO DAILY@0800 08/11/19 09/23/19 History Mononitrate ER] Thyroid,Pork [[place] Thyroid] 180 mg PO DAILY@0600 08/11/19 09/23/19 History metFORMIN HCL 1,000 mg PO BID@0800,1700 08/11/19 09/23/19 History Acetaminophen [Tylenol] 650 mg PO Q4H PRN 09/23/19 09/23/19 History Bisacodyl [Dulcolax] 10 mg RECTAL DAILY PRN 09/23/19 09/23/19 History Docusate [Colace] 100 mg PO BID@0800,1700 09/23/19 09/23/19 History HYDROcodone/APAP 10-325MG [[place] 1 tab PO Q6HR PRN 09/23/19 09/23/19 History 10-325] Loperamide HCl [Imodium A-D] 2 - 4 mg PO DIRECTED PRN 09/23/19 09/23/19 History Magic Cup 1 can PO TID@0800,1200,1700 09/23/19 09/23/19 History Magnesium Hydroxide [Milk of 2,400 mg PO DAILY PRN 09/23/19 09/23/19 History Magnesia] Metoprolol Succinate [Toprol XL] 25 mg PO DAILY@0800 09/23/19 09/23/19 History Mirtazapine [Remeron] 15 mg PO HS@2100 09/23/19 09/23/19 History Na Phos,M-B/Na Phos,Di-Ba [Fleet 133 ml RECTAL DAILY PRN 09/23/19 09/23/19 History Adult] Nicotine 14Mg/24Hr Patch [Habitrol 1 patch TRANSDERM DAILY@0800 09/23/19 09/23/19 History 14Mg/24Hr Patch] traMADol HCL 50 mg PO Q6H PRN 09/23/19 09/23/19 History Allergies Allergy/AdvReac Type Severity Reaction Status Date / Time Iodinated Contrast Media Allergy Anaphylaxis Verified 09/23/19 22:45 moxifloxacin [From Avelox] Allergy Unknown Verified 09/23/19 22:45 Penicillins Allergy Anaphylaxis Verified 09/23/19 22:45 Physical Exam Vitals: Vital Signs Temp Pulse Resp BP Pulse Ox 09/24/19 09:44 86 16 102/57 98 09/24/19 07:37 85 18 106/62 97 09/24/19 06:00 98.1 F 85 16 98/59 96 09/24/19 05:32 88 16 93/56 98 09/24/19 05:00 84 16 88/52 100 09/24/19 04:37 86 16 96/61 99 09/24/19 04:00 105 H 16 92/50 96 09/24/19 03:00 87 16 91/49 96 09/24/19 00:00 85 16 100/53 95 09/23/19 23:00 88 16 94/47 09/23/19 22:00 89 16 87/49 96 09/23/19 21:00 91 18 87/47 95 09/23/19 20:05 98.3 F 93 16 90/39 95 Intake and Output 09/23/19 09/24/19 09/24/19 22:59 06:59 14:59 Other: Voiding Method Diaper Weight 81.647 kg GENERAL EXAM: Alert, confused, obese 69-year-old female patient, slow to respond, on 4 L nasal cannula, fairly comfortable in no apparent distress. HEAD: Normocephalic. EYES: Normal reaction of pupils, equal size. NOSE: Clear with pink turbinates. THROAT: No erythema or exudates. NECK: Cervical lymphadenopathy palpable, no JVD. CHEST: No chest wall deformity. LUNGS: Equal air entry with bilateral scattered rhonchi, crackles in left base, diminished. CVS: S1 and S2 normal with no audible murmur, regular rhythm. ABDOMEN: Abdominal lymphadenopathy palpable, normal bowel sounds, no guarding or rigidity. SPINE: No scoliosis or deformity SKIN: No rashes CENTRAL NERVOUS SYSTEM: No focal deficits, tone is normal in all 4 extremities. EXTREMITIES: There is no peripheral edema. No clubbing, no cyanosis. Birdie pheral pulses are intact. Results - Laboratory Findings CBC and BMP: 09/24/19 03:42 09/24/19 03:42 PT/INR, D-dimer PT 20.3 sec (9.0-12.0) H 09/23/19 20:31 INR 2.1 (<1.2) H 09/23/19 20:31 Abnormal lab findings: Abnormal Labs 09/23/19 09/23/19 09/23/19 20:29 20:31 20:31 WBC 11.6 H RBC 3.57 L Hgb 9.5 L Hct 30.8 L MCHC 30.9 L RDW 18.5 H Plt Count 477 H Neutrophils # 10.4 H Lymphocytes # 0.5 L PT 20.3 H INR 2.1 H APTT 32.8 H Sodium Chloride BUN Creatinine POC Glucose (mg/dL) 101 H Plasma Lactic Acid Severo Calcium AST Alkaline Phosphatase Total Protein Albumin Urine Appearance Urine Protein Urine Ketones Urine Bilirubin Amorphous Sediment Urine Bacteria Hyaline Casts Urine Mucus 09/23/19 09/23/19 09/23/19 20:31 20:31 21:30 WBC RBC Hgb Hct MCHC RDW Plt Count Neutrophils # Lymphocytes # PT INR APTT Sodium 133 L Chloride 96 L BUN 56 H Creatinine 2.57 H POC Glucose (mg/dL) Plasma Lactic Acid Severo 4.0 H* Calcium 8.3 L AST 73 H Alkaline Phosphatase 215 H Total Protein 5.4 L Albumin 3.0 L Urine Appearance Cloudy H Urine Protein 2+ H Urine Ketones Trace H Urine Bilirubin 1+ H Amorphous Sediment Rare H Urine Bacteria Moderate H Hyaline Casts 6 H Urine Mucus Few H 09/24/19 09/24/19 09/24/19 00:09 03:42 03:42 WBC 12.0 H RBC 3.53 L Hgb 9.3 L Hct 31.1 L MCHC 29.9 L RDW 18.3 H Plt Count Neutrophils # 10.9 H Lymphocytes # 0.4 L PT INR APTT Sodium 136 L Chloride BUN 56 H Creatinine 2.51 H POC Glucose (mg/dL) Plasma Lactic Acid Severo 3.8 H* Calcium 7.5 L AST 73 H Alkaline Phosphatase 197 H Total Protein 4.8 L Albumin 2.5 L Urine Appearance Urine Protein Urine Ketones Urine Bilirubin Amorphous Sediment Urine Bacteria Hyaline Casts Urine Mucus 09/24/19 09/24/19 09/24/19 03:42 07:24 11:20 WBC RBC Hgb Hct MCHC RDW Plt Count Neutrophils # Lymphocytes # PT INR APTT Sodium Chloride BUN Creatinine POC Glucose (mg/dL) Plasma Lactic Acid Severo 3.1 H* 2.6 H* 2.4 H* Calcium AST Alkaline Phosphatase Total Protein Albumin Urine Appearance Urine Protein Urine Ketones Urine Bilirubin Amorphous Sediment Urine Bacteria Hyaline Casts Urine Mucus - Diagnostic Findings Chest x-ray: image reviewed Assessment and Plan Assessment: Altered mental status, weakness and dehydration secondary to poor oral intake Acute hypoxic respiratory failure secondary to worsening multilobar pulmonary nodules and left pleural effusion Acute renal failure secondary to dehydration and poor oral intake Acute urinary tract infection History of multiple pulmonary nodules, mediastinal adenopathy, abdominal lymphadenopathy. Multiple palpable lymph nodes. History of breast cancer with previous bilateral mastectomies in 2006 Recent right hip fracture status post repair at [facility] in August 2019 recovering at extended care facility History of atrial fibrillation anticoagulated with Eliquis in the past History of coronary artery disease with previous myocardial infarction History of chronic obstructive pulmonary disease Chronic and ongoing tobacco dependence of greater than 40 years Diabetes mellitus Hypertension Hyperlipidemia Hypothyroidism Chronic anxiety Osteoarthritis Obesity Poor overall functional performance based on the above-mentioned multiple comorbidities Plan The patient was seen and evaluated by Dr. Dominguez Chest x-ray, labs reviewed. [place] virus screen pending We are unclear if she had any lung or lymph node biopsies done at [facility] prior to August 2019 We'll obtain a computed tomography scan of the brain without contrast to rule out any brain metastases Overall prognosis is quite poor and guarded Oncology consult pending DO NOT RESUSCITATE/DO NOT INTUBATE CODE STATUS May need to consider hospice/palliative care We will continue to follow and make further recommendations based on her clinical status I, the cosigning physician, performed a history & physical examination of the patient. Lungs sounds with few scattered rhonchi, crackles in left base. Maintaining good O2 saturations in the 90s on 4 L/m per nasal cannula. I discussed the assessment and plan of care with my nurse practitioner, Mignon Rothman. I attest to the above consultation as dictated by her. Time with Patient: Greater than 30
--- NOTE | 2019-09-24 14:48 | CT ---
EXAMINATION TYPE: CT brain wo con DATE OF EXAM: 09/24/2019 COMPARISON: None HISTORY: mental status changes. CT DLP: 1113.4 mGycm Automated exposure control for dose reduction was used. Head CT performed using departmental protocol . FINDINGS: Cerebral vascular calcifications are present. There is no hemorrhage or hydrocephalus. Inflammatory c hange noted within the left maxillary sinus, sphenoid sinus. Orbits show symmetric appearance. Patchy low attenuation present in the deep white matter, asymmetric low attenuation present in the external capsule on the right as compared to left. There is a partially empty sella. Cortical atrophy is mild . IMPRESSION: POSSIBLE AGE-RELATED CHANGES OF ATROPHY AND CHRONIC SMALL VESSEL ISCHEMIA, CONSIDER MRI INDICATED FOR BETTER EVALUATION OF NONSPECIFIC WHITE MATTER LOW-ATTENUATION. SINUS DISEASE.
[2019-09-24] MEDS: SODIUM CHLORIDE 0.9% 1,000 ML IV SCH (15:24)
[2019-09-24 17:36] LABS: Glucose,Whole Blood 83 mg/dL (75-99)
[2019-09-24] MEDS: INSULN ASP PRT/INSULIN ASPART 100 UNIT/ML 10 ML VIAL SQ SCH (17:43)
[2019-09-24] MEDS: DOCUSATE 100 MG CAP PO SCH (17:43)
[2019-09-24 19:21] LABS: INR 2.1 (<1.2); Partial Thromboplastin Time 32.9 sec (22.0-30.0); Prothrombin Time 20.7 sec (9.0-12.0)
[2019-09-24 19:33] LABS: Uric Acid 14.2 mg/dL (3.7-7.4)
[2019-09-24 20:31] LABS: Glucose,Whole Blood 91 mg/dL (75-99)
[2019-09-24] MEDS: MIRTAZAPINE 15 MG TAB PO SCH (20:55)
[2019-09-24] MEDS: ATORVASTATIN 10 MG TAB PO SCH (20:55)
--- NOTE | 2019-09-24 21:04 | P.CONS ---
History of Present Illness - Reason for Consult Consult date: 09/24/19 Diffuse adenopathy Requesting physician: Quoc Hdz - Chief Complaint mental status changes, adenopathy - History of Present Illness Patient transported to [facility] from [facility]. Over the past few months she has been undergoing diagnostic procedures through [facility] for diffuse adenopathy, including biopsy that was inconclusive. We are awaiting full records. In August she apparently underwent surgical intervention of left hip and this area is now draining with surrounding erythema, she presents with increased lactic acid, increased oxygen need, acute renal failure, and confusion. Infectious disease, pulmonary, nephrology, have all been consulted to evaluated. Full rivera cultures have been ordered as well as renal ultrasound, and LE doppler. During evaluation she is a poor historian, not focused and answering as if she is angry and frustrated. Review of Systems ROS unobtainable: due to mental status Past Medical History Past Medical History: COPD Additional Past Medical History / Comment(s): breast and lung cancer Last Myocardial Infarction Date:: unknown History of Any Multi-Drug Resistant Organisms: None Reported Past Surgical History: Breast Surgery, Cholecystectomy Past Anesthesia/Blood Transfusion Reactions: No Reported Reaction Past Psychological History: No Psychological Hx Reported Smoking Status: Current every day smoker Past Alcohol Use History: None Reported Additional Past Alcohol Use History / Comment(s): Patient is a smoker of 2 packs per day for 45 years, currently at a half a pack per day. She denies any alcohol use, marijuana, street drug use. Past Drug Use History: None Reported - Past Family History Father Additional Family Medical History / Comment(s): Patient states that she does not remember her mother or father's medical history, cause of . Brother(s) Additional Family Medical History / Comment(s): Patient states that she has 4 or 5 siblings and one half brother had lung cancer. Patient has 2 daughters which she reports is having no major medical problems. Medications and Allergies Home Medications Medication Instructions Recorded Confirmed Type Apixaban [Eliquis] 5 mg PO BID@0800,1700 08/11/19 09/23/19 History Atorvastatin Calcium [Lipitor] 10 mg PO HS@2100 08/11/19 09/23/19 History Citalopram Hydrobromide [CeleXA] 20 mg PO DAILY@0800 08/11/19 09/23/19 History Insulin NPH Hum/Reg Insulin Hm 5 units SQ BID@0800,1700 08/11/19 09/23/19 H istory [Novolin 70-30 Flexpen] Isosorbide Mononitrate [Isosorbide 30 mg PO DAILY@0800 08/11/19 09/23/19 History Mononitrate ER] Thyroid,Pork [[place] Thyroid] 180 mg PO DAILY@0600 08/11/19 09/23/19 History metFORMIN HCL 1,000 mg PO BID@0800,1700 08/11/19 09/23/19 History Acetaminophen [Tylenol] 650 mg PO Q4H PRN 09/23/19 09/23/19 History Bisacodyl [Dulcolax] 10 mg RECTAL DAILY PRN 09/23/19 09/23/19 History Docusate [Colace] 100 mg PO BID@0800,1700 09/23/19 09/23/19 History HYDROcodone/APAP 10-325MG [[place] 1 tab PO Q6HR PRN 09/23/19 09/23/19 History 10-325] Loperamide HCl [Imodium A-D] 2 - 4 mg PO DIRECTED PRN 09/23/19 09/23/19 History Magic Cup 1 can PO TID@0800,1200,1700 09/23/19 09/23/19 History Magnesium Hydroxide [Milk of 2,400 mg PO DAILY PRN 09/23/19 09/23/19 History Magnesia] Metoprolol Succinate [Toprol XL] 25 mg PO DAILY@0800 09/23/19 09/23/19 History Mirtazapine [Remeron] 15 mg PO HS@2100 09/23/19 09/23/19 History Na Phos,M-B/Na Phos,Di-Ba [Fleet 133 ml RECTAL DAILY PRN 09/23/19 09/23/19 History Adult] Nicotine 14Mg/24Hr Patch [Habitrol 1 patch TRANSDERM DAILY@0800 09/23/19 09/23/19 History 14Mg/24Hr Patch] traMADol HCL 50 mg PO Q6H PRN 09/23/19 09/23/19 History Allergies Allergy/AdvReac Type Severity Reaction Status Date / Time Iodinated Contrast Media Allergy Anaphylaxis Verified 09/23/19 22:45 moxifloxacin [From Avelox] Allergy Unknown Verified 09/23/19 22:45 Penicillins Allergy Anaphylaxis Verified 09/23/19 22:45 Physical Exam Vitals: Vital Signs Temp Pulse Pulse Resp BP BP Pulse Ox 09/24/19 19:41 98.4 F 94 24 109/65 91 L 09/24/19 14:52 89 20 94/53 96 09/24/19 13:31 87 20 98/51 96 09/24/19 09:44 86 16 102/57 98 09/24/19 07:37 85 18 106/62 97 09/24/19 06:00 98.1 F 85 16 98/59 96 09/24/19 05:32 88 16 93/56 98 09/24/19 05:00 84 16 88/52 100 09/24/19 04:37 86 16 96/61 99 09/24/19 04:00 105 H 16 92/50 96 09/24/19 03:00 87 16 91/49 96 09/24/19 00:00 85 16 100/53 95 09/23/19 23:00 88 16 94/47 09/23/19 22:00 89 16 87/49 96 09/23/19 21:00 91 18 87/47 95 Intake and Output 09/24/19 09/24/19 09/24/19 06:59 14:59 22:59 Other: Voiding Method Diaper Weight 81.647 kg Alert, poor historian, mild distress LN: Palpable adenopathy, submandibular left jaw and bilateral inguinal nodes Heart: Irr Lungs: Diminished throughout and increased effort Abdomen: Firm, mild distention, nodularity and firm Left hip with draining incision wound LE: LLE edema RUE Edema (prior breast cancer history and side of lymphedema. mood: Frustrated, confused Results CBC & Chem 7: 09/24/19 03:42 09/24/19 03:42 Labs: Abnormal Lab Results - Last 24 Hours (Table) 09/23/19 09/23/19 09/23/19 Range/Units 20:31 20:31 20:31 WBC 11.6 H (3.8-10.6) k/uL RBC 3.57 L (3.80-5.40) m/uL Hgb 9.5 L (11.4-16.0) gm/dL Hct 30.8 L (34.0-46.0) % MCHC 30.9 L (31.0-37.0) g/dL RDW 18.5 H (11.5-15.5) % Plt Count 477 H (150-450) k/uL Neutrophils # 10.4 H (1.3-7.7) k/uL Lymphocytes # 0.5 L (1.0-4.8) k/uL Retic Count (0.5-2.0) % PT 20.3 H (9.0-12.0) sec INR 2.1 H (<1.2) APTT 32.8 H (22.0-30.0) sec Sodium 133 L (137-145) mmol/L Chloride 96 L (98-107) mmol/L BUN 56 H (7-17) mg/dL Creatinine 2.57 H (0.52-1.04) mg/dL Plasma Lactic Acid Severo (0.7-2.0) mmol/L Uric Acid (3.7-7.4) mg/dL Calcium 8.3 L (8.4-10.2) mg/dL AST 73 H (14-36) U/L Alkaline Phosphatase 215 H (38-126) U/L Lactate Dehydrogenase (313-618) U/L Total Protein 5.4 L (6.3-8.2) g/dL Albumin 3.0 L (3.5-5.0) g/dL Urine Appearance (Clear) Urine Protein (Negative) Urine Ketones (Negative) Urine Bilirubin (Negative) Amorphous Sediment (None) /hpf Urine Bacteria (None) /hpf Hyaline Casts (0-2) /lpf Urine Mucus (None) /hpf 09/23/19 09/23/19 09/24/19 Range/Units 20:31 21:30 00:09 WBC (3.8-10.6) k/uL RBC (3.80-5.40) m/uL Hgb (11.4-16.0) gm/dL Hct (34.0-46.0) % MCHC (31.0-37.0) g/dL RDW (11.5-15.5) % Plt Count (150-450) k/uL Neutrophils # (1.3-7.7) k/uL Lymphocytes # (1.0-4.8) k/uL Retic Count (0.5-2.0) % PT (9.0-12.0) sec INR (<1.2) APTT (22.0-30.0) sec Sodium (137-145) mmol/L Chloride (98-107) mmol/L BUN (7-17) mg/dL Creatinine (0.52-1.04) mg/dL Plasma Lactic Acid Seveor 4.0 H* 3.8 H* (0.7-2.0) mmol/L Uric Acid (3.7-7.4) mg/dL Calcium (8.4-10.2) mg/dL AST (14-36) U/L Alkaline Phosphatase (38-126) U/L Lactate Dehydrogenase (313-618) U/L Total Protein (6.3-8.2) g/dL Albumin (3.5-5.0) g/dL Urine Appearance Cloudy H (Clear) Urine Protein 2+ H (Negative) Urine Ketones Trace H (Negative) Urine Bilirubin 1+ H (Negative) Amorphous Sediment Rare H (None) /hpf Urine Bacteria Moderate H (None) /hpf Hyaline Casts 6 H (0-2) /lpf Urine Mucus Few H (None) /hpf 09/24/19 09/24/19 09/24/19 Range/Units 03:42 03:42 03:42 WBC 12.0 H (3.8-10.6) k/uL RBC 3.53 L (3.80-5.40) m/uL Hgb 9.3 L (11.4-16.0) gm/dL Hct 31.1 L (34.0-46.0) % MCHC 29.9 L (31.0-37.0) g/dL RDW 18.3 H (11.5-15.5) % Plt Count (150-450) k/uL Neutrophils # 10.9 H (1.3-7.7) k/uL Lymphocytes # 0.4 L (1.0-4.8) k/uL Retic Count (0.5-2.0) % PT (9.0-12.0) sec INR (<1.2) APTT (22.0-30.0) sec Sodium 136 L (137-145) mmol/L Chloride (98-107) mmol/L BUN 56 H (7-17) mg/dL Creatinine 2.51 H (0.52-1.04) mg/dL Plasma Lactic Acid Severo 3.1 H* (0.7-2.0) mmol/L Uric Acid (3.7-7.4) mg/dL Calcium 7.5 L (8.4-10.2) mg/dL AST 73 H (14-36) U/L Alkaline Phosphatase 197 H (38-126) U/L Lactate Dehydrogenase (313-618) U/L Total Protein 4.8 L (6.3-8.2) g/dL Albumin 2.5 L (3.5-5.0) g/dL Urine Appearance (Clear) Urine Protein (Negative) Urine Ketones (Negative) Urine Bilirubin (Negative) Amorphous Sediment (None) /hpf Urine Bacteria (None) /hpf Hyaline Casts (0-2) /lpf Urine Mucus (None) /hpf 09/24/19 09/24/19 09/24/19 Range/Units 07:24 11:20 15:16 WBC (3.8-10.6) k/uL RBC (3.80-5.40) m/uL Hgb (11.4-16.0) gm/dL Hct (34.0-46.0) % MCHC (31.0-37.0) g/dL RDW (11.5-15.5) % Plt Count (150-450) k/uL Neutrophils # (1.3-7.7) k/uL Lymphocytes # (1.0-4.8) k/uL Retic Count (0.5-2.0) % PT (9.0-12.0) sec INR (<1.2) APTT (22.0-30.0) sec Sodium (137-145) mmol/L Chloride (98-107) mmol/L BUN (7-17) mg/dL Creatinine (0.52-1.04) mg/dL Plasma Lactic Acid Severo 2.6 H* 2.4 H* 2.5 H* (0.7-2.0) mmol/L Uric Acid (3.7-7.4) mg/dL Calcium (8.4-10.2) mg/dL AST (14-36) U/L Alkaline Phosphatase (38-126) U/L Lactate Dehydrogenase (313-618) U/L Total Protein (6.3-8.2) g/dL Albumin (3.5-5.0) g/dL Urine Appearance (Clear) Urine Protein (Negative) Urine Ketones (Negative) Urine Bilirubin (Negative) Amorphous Sediment (None) /hpf Urine Bacteria (None) /hpf Hyaline Casts (0-2) /lpf Urine Mucus (None) /hpf 09/24/19 09/24/19 09/24/19 Range/Units 18:18 18:18 18:18 WBC (3.8-10.6) k/uL RBC (3.80-5.40) m/uL Hgb (11.4-16.0) gm/dL Hct (34.0-46.0) % MCHC (31.0-37.0) g/dL RDW (11.5-15.5) % Plt Count (150-450) k/uL Neutrophils # (1.3-7.7) k/uL Lymphocytes # (1.0-4.8) k/uL Retic Count 3.0 H (0.5-2.0) % PT 20.7 H (9.0-12.0) sec INR 2.1 H (<1.2) APTT 32.9 H (22.0-30.0) sec Sodium (137-145) mmol/L Chloride (98-107) mmol/L BUN (7-17) mg/dL Creatinine (0.52-1.04) mg/dL Plasma Lactic Acid Severo (0.7-2.0) mmol/L Uric Acid 14.2 H (3.7-7.4) mg/dL Calcium (8.4-10.2) mg/dL AST (14-36) U/L Alkaline Phosphatase (38-126) U/L Lactate Dehydrogenase 2132 H (313-618) U/L Total Protein (6.3-8.2) g/dL Albumin (3.5-5.0) g/dL Urine Appearance (Clear) Urine Protein (Negative) Urine Ketones (Negative) Urine Bilirubin (Negative) Amorphous Sediment (None) /hpf Urine Bacteria (None) /hpf Hyaline Casts (0-2) /lpf Urine Mucus (None) /hpf 09/24/19 Range/Units 18:45 WBC (3.8-10.6) k/uL RBC (3.80-5.40) m/uL Hgb (11.4-16.0) gm/dL Hct (34.0-46.0) % MCHC (31.0-37.0) g/dL RDW (11.5-15.5) % Plt Count (150-450) k/uL Neutrophils # (1.3-7.7) k/uL Lymphocytes # (1.0-4.8) k/uL Retic Count (0.5-2.0) % PT (9.0-12.0) sec INR (<1.2) APTT (22.0-30.0) sec Sodium (137-145) mmol/L Chloride (98-107) mmol/L BUN (7-17) mg/dL Creatinine (0.52-1.04) mg/dL Plasma Lactic Acid Severo 2.7 H* (0.7-2.0) mmol/L Uric Acid (3.7-7.4) mg/dL Calcium (8.4-10.2) mg/dL AST (14-36) U/L Alkaline Phosphatase (38-126) U/L Lactate Dehydrogenase (313-618) U/L Total Protein (6.3-8.2) g/dL Albumin (3.5-5.0) g/dL Urine Appearance (Clear) Urine Protein (Negative) Urine Ketones (Negative) Urine Bilirubin (Negative) Amorphous Sediment (None) /hpf Urine Bacteria (None) /hpf Hyaline Casts (0-2) /lpf Urine Mucus (None) /hpf Assessment and Plan (1) History of breast cancer Current Visit: Yes Status: Acute Code(s): Z85.3 - PERSONAL HISTORY OF MAL IGNANT NEOPLASM OF BREAST SNOMED Code(s): 398104859 (2) Retroperitoneal lymphadenopathy Current Visit: Yes Status: Acute Code(s): R59.0 - LOCALIZED ENLARGED LYMPH NODES SNOMED Code(s): 956081863 Plan: Assessment and recommendations: 1. Diffuse Adenopathy: - Patient initially seen in June at [facility] for abdominal pain, underwent CT scans revealing diffuse adenopathy. - In july had FNA lymph node inconclusive, will need surgical excisional lymph node biopsy as a differential includes lymphoma. therefore flow cytometry for B and T cells will also need to be sent. - She does have a history of Breast Cancer in 2006, she was unable to give much history of this. Will check tumor markers 2. Left hip incision wound draining, probable infection: - Recent hip surgery in August, further details unknown - Antibiotics per primary team - Elevated lactic acid: blood cultures pending 3. Renal Insufficiency: Acute Renal Failure, new - Nephrology to Evaluate - Check Uric acid and LDH 4. Increased Respiratory Effort: - Secondary to pulmonary nodules versus other - Pulm is following, unable to utilize contrasted CT secondary to Renal Function - 2-3L 90% 5. LLE Swelling: - Maybe secondary to left hip surgery will order doppler to assess for DVT, also will assess RUE 6. Normocytic Anemia: - Iron Studies, hemolysis, work-up in progress - Monitor CBC 7. Mild Coagulopathy: - Prolonged INR, PT, PTT - MOnitor
[2019-09-25 00:09] LABS: Glucose,Whole Blood 103 mg/dL (75-99)
[2019-09-25 00:34] LABS: Cancer Antigen 153 13.3 U/mL (0.0-32.3)
[2019-09-25] MEDS: HYDROcodone/APAP 10-325MG 1 EACH TAB PO PRN ×4 (00:45→23:55)
[2019-09-25] MEDS: SODIUM CHLORIDE 0.9% 1,000 ML IV SCH ×4 (00:48→20:42)
[2019-09-25] MEDS: THYROID, PORK 30 MG TAB PO SCH (05:22)
[2019-09-25] MEDS: METOPROLOL SUCCINATE (ER) 25 MG TAB.ER.24H PO SCH (06:16)
[2019-09-25] MEDS ORDERED: DILTIAZEM 125 MG in SODIUM CHLORIDE 0.9% 100 ML IV SCH (06:30)
[2019-09-25 07:17] LABS: Anisocytosis Slight; Basophils % (A) 0 %; Eosinophils # (A) 0.1 k/uL (0-0.7); Eosinophils % (A) 1 %; HCT 35.6 % (34.0-46.0); HGB 10.6 gm/dL (11.4-16.0); Hypochromasia Marked; Lymphocytes # (A) 0.3 k/uL (1.0-4.8); Lymphocytes % (A) 2 %; MCH 26.8 pg (25.0-35.0); MCHC 29.7 g/dL (31.0-37.0); Mean Platelet Volume 7.9; Monocytes # (A) 0.4 k/uL (0-1.0); Monocytes % (A) 3 %; Neutrophils # (A) 13.3 k/uL (1.3-7.7); Neutrophils % (A) 93 %; Platelet Count 542 k/uL (150-450); RBC 3.95 m/uL (3.80-5.40); RDW 18.2 % (11.5-15.5); WBC 14.4 k/uL (3.8-10.6)
[2019-09-25 07:27] LABS: Calcium 7.9 mg/dL (8.4-10.2); Potassium 4.6 mmol/L (3.5-5.1)
[2019-09-25] MEDS: INSULN ASP PRT/INSULIN ASPART 100 UNIT/ML 10 ML VIAL SQ SCH ×2 (08:30→17:00)
[2019-09-25] MEDS: CITALOPRAM HYDROBROMIDE 20 MG TAB PO SCH (09:21)
[2019-09-25] MEDS: PANTOPRAZOLE 40 MG/10 ML VIAL IV SCH (09:26)
[2019-09-25] MEDS: DOCUSATE 100 MG CAP PO SCH ×2 (09:26→17:00)
[2019-09-25] MEDS: NICOTINE 14MG/24HR PATCH TRANSDERM SCH (09:26)
[2019-09-25] MEDS: ISOSORBIDE MONONITRATE ER 30 MG TAB.ER.24H PO SCH (09:26)
[2019-09-25 10:35] LABS: INR 2.2 (<1.2); Partial Thromboplastin Time 39.2 sec (22.0-30.0); Prothrombin Time 21.4 sec (9.0-12.0)
--- NOTE | 2019-09-25 10:57 | P.GSCN ---
History of Present Illness Consult date: 09/25/19 Reason for Consult: Lymphadenopathy History of present illness: 69-year-old female worked up for diffuse adenopathy. Apparently had an FNA per formed at an outside hospital that was inconclusive. We were consulted for excisional lymph node biopsy. Patient is in the ICU as a stepdown hold for A. fib with RVR. She was on a Cardizem drip. She has converted. Complaining of fatigue and mild shortness of breath. Pulmonary, infectious disease, oncology, and hospitalists services are following. Patient does take eloquis at home. Unclear what her last dose was. Patient also with history of recent right hip ORIF after fall in August. Small amount of serous drainage from the lower aspect of her incision. Also has lower extremity edema. History of previous breast cancer 2006. Had mastectomy bilaterally. She is unsure if she had ly mphadenectomy at that time. Review of Systems The patient denies any acute changes in vision or hearing, no dysphagia or odynophagia, no chest pain, no dysuria or hematuria, no headache, no runny nose, no rectal bleeding or melena Past Medical History Past Medical History: COPD Additional Past Medical History / Comment(s): breast and lung cancer Last Myocardial Infarction Date:: unknown History of Any Multi-Drug Resistant Organisms: None Reported Past Surgical History: Breast Surgery, Cholecystectomy Past Anesthesia/Blood Transfusion Reactions: No Reported Reaction Past Psychological History: No Psychological Hx Reported Smoking Status: Current every day smoker Past Alcohol Use History: None Reported Additional Past Alcohol Use History / Comment(s): Patient is a smoker of 2 packs per day for 45 years, currently at a half a pack per day. She denies any alcohol use, marijuana, street drug use. Past Drug Use History: None Reported - Past Family History Father Additional Family Medical History / Comment(s): Patient states that she does not remember her mother or father's medical history, cause of . Brother(s) Additional Family Medical History / Comment(s): Patient states that she has 4 or 5 siblings and one half brother had lung cancer. Patient has 2 daughters which she reports is having no major medical problems. Medications and Allergies Home Medications Medication Instructions Recorded Confirmed Type Apixaban [Eliquis] 5 mg PO BID@0800,1700 08/11/19 09/23/19 History Atorvastatin Calcium [Lipitor] 10 mg PO HS@2100 08/11/19 09/23/19 History Citalopram Hydrobromide [CeleXA] 20 mg PO DAILY@0800 08/11/19 09/23/19 History Insulin NPH Hum/Reg Insulin Hm 5 units SQ BID@0800,1700 08/11/19 09/23/19 History [Novolin 70-30 Flexpen] Isosorbide Mononitrate [Isosorbide 30 mg PO DAILY@0800 08/11/19 09/23/19 History Mononitrate ER] Thyroid,Pork [[place] Thyroid] 180 mg PO DAILY@0600 08/11/19 09/23/19 History metFORMIN HCL 1,000 mg PO BID@0800,1700 08/11/19 09/23/19 History Acetaminophen [Tylenol] 650 mg PO Q4H PRN 09/23/19 09/23/19 History Bisacodyl [Dulcolax] 10 mg RECTAL DAILY PRN 09/23/19 09/23/19 History Docusate [Colace] 100 mg PO BID@0800,1700 09/23/19 09/23/19 History HYDROcodone/APAP 10-325MG [Clayton 1 tab PO Q6HR PRN 09/23/19 09/23/19 History 10-325] Loperamide HCl [Imodium A-D] 2 - 4 mg PO DIRECTED PRN 09/23/19 09/23/19 History Magic Cup 1 can PO TID@0800,1200,1700 09/23/19 09/23/19 History Magnesium Hydroxide [Milk of 2,400 mg PO DAILY PRN 09/23/19 09/23/19 History Magnesia] Metoprolol Succinate [Toprol XL] 25 mg PO DAILY@0800 09/23/19 09/23/19 History Mirtazapine [Remeron] 15 mg PO HS@209909/23/19 09/23/19 History Na Phos,M-B/Na Phos,Di-Ba [Fleet 133 ml RECTAL DAILY PRN 09/23/19 09/23/19 History Adult] Nicotine 14Mg/24Hr Patch [Habitrol 1 patch TRANSDERM DAILY@0800 09/23/19 09/23/19 History 14Mg/24Hr Patch] traMADol HCL 50 mg PO Q6H PRN 09/23/19 09/23/19 History Allergies Allergy/AdvReac Type Severity Reaction Status Date / Time Iodinated Contrast Media Allergy Anaphylaxis Verified 09/23/19 22:45 moxifloxacin [From Avelox] Allergy Unknown Verified 09/23/19 22:45 Penicillins Allergy Anaphylaxis Verified 09/23/19 22:45 Surgical - Exam Vital Signs Temp Pulse Resp BP Pulse Ox 98.3 F 93 16 90/39 95 09/23/19 20:05 09/23/19 20:05 09/23/19 20:05 09/23/19 20:05 09/23/19 20:05 Physical exam: General: Well-developed, well-nourished HEENT: Normocephalic, sclerae nonicteric, palpable adenopathy left cervical and supraclavicular Abdomen: Mild distention, nontender Extremities: Bilateral lower extremity edema, right lateral hip incision with very subtle erythema and small amount of serous drainage, bilateral inguinal adenopathy right greater than left, left axillary adenopathy Neuro: Alert and oriented Results - Labs 09/25/19 06:59 09/25/19 06:59 Abnormal Lab Results - Last 24 Hours (Table) 09/24/19 09/24/19 09/24/19 Range/Units 11:20 15:16 18:18 WBC (3.8-10.6) k/uL Hgb (11.4-16.0) gm/dL MCHC (31.0-37.0) g/dL RDW (11.5-15.5) % Plt Count (150-450) k/uL Neutrophils # (1.3-7.7) k/uL Lymphocytes # (1.0-4.8) k/uL Retic Count (0.5-2.0) % PT (9.0-12.0) sec INR (<1.2) APTT (22.0-30.0) sec Sodium (137-145) mmol/L Carbon Dioxide (22-30) mmol/L BUN (7-17) mg/dL Creatinine (0.52-1.04) mg/dL POC Glucose (mg/dL) (75-99) mg/dL Plasma Lactic Acid Severo 2.4 H* 2.5 H* (0.7-2.0) mmol/L Uric Acid 14.2 H (3.7-7.4) mg/dL Calcium (8.4-10.2) mg/dL Iron (50-170) ug/dL Lactate Dehydrogenase 2132 H (313-618) U/L 09/24/19 09/24/19 09/24/19 Range/Units 18:18 18:18 18:18 WBC (3.8-10.6) k/uL Hgb (11.4-16.0) gm/dL MCHC (31.0-37.0) g/dL RDW (11.5-15.5) % Plt Count (150-450) k/uL Neutrophils # (1.3-7.7) k/uL Lymphocytes # (1.0-4.8) k/uL Retic Count 3.0 H (0.5-2.0) % PT 20.7 H (9.0-12.0) sec INR 2.1 H (<1.2) APTT 32.9 H (22.0-30.0) sec Sodium (137-145) mmol/L Carbon Dioxide (22-30) mmol/L BUN (7-17) mg/dL Creatinine (0.52-1.04) mg/dL POC Glucose (mg/dL) (75-99) mg/dL Plasma Lactic Acid Severo (0.7-2.0) mmol/L Uric Acid (3.7-7.4) mg/dL Calcium (8.4-10.2) mg/dL Iron 19 L (50-170) ug/dL Lactate Dehydrogenase (313-618) U/L 09/24/19 09/24/19 09/25/19 Range/Units 18:45 23:03 00:06 WBC (3.8-10.6) k/uL Hgb (11.4-16.0) gm/dL MCHC (31.0-37.0) g/dL RDW (11.5-15.5) % Plt Count (150-450) k/uL Neutrophils # (1.3-7.7) k/uL Lymphocytes # (1.0-4.8) k/uL Retic Count (0.5-2.0) % PT (9.0-12.0) sec INR (<1.2) APTT (22.0-30.0) sec Sodium (137-145) mmol/L Carbon Dioxide (22-30) mmol/L BUN (7-17) mg/dL Creatinine (0.52-1.04) mg/dL POC Glucose (mg/dL) 103 H (75-99) mg/dL Plasma Lactic Acid Severo 2.7 H* 2.6 H* (0.7-2.0) mmol/L Uric Acid (3.7-7.4) mg/dL Calcium (8.4-10.2) mg/dL Iron (50-170) ug/dL Lactate Dehydrogenase (313-618) U/L 09/25/19 09/25/19 09/25/19 Range/Units 02:42 06:55 06:59 WBC 14.4 H (3.8-10.6) k/uL Hgb 10.6 L (11.4-16.0) gm/dL MCHC 29.7 L (31.0-37.0) g/dL RDW 18.2 H (11.5-15.5) % Plt Count 542 H (150-450) k/uL Neutrophils # 13.3 H (1.3-7.7) k/uL Lymphocytes # 0.3 L (1.0-4.8) k/uL Retic Count (0.5-2.0) % PT (9.0-12.0) sec INR (<1.2) APTT (22.0-30.0) sec Sodium (137-145) mmol/L Carbon Dioxide (22-30) mmol/L BUN (7-17) mg/dL Creatinine (0.52-1.04) mg/dL POC Glucose (mg/dL) (75-99) mg/dL Plasma Lactic Acid Severo 2.5 H* 3.2 H* (0.7-2.0) mmol/L Uric Acid (3.7-7.4) mg/dL Calcium (8.4-10.2) mg/dL Iron (50-170) ug/dL Lactate Dehydrogenase (313-618) U/L 09/25/19 09/25/19 Range/Units 06:59 09:56 WBC (3.8-10.6) k/uL Hgb (11.4-16.0) gm/dL MCHC (31.0-37.0) g/dL RDW (11.5-15.5) % Plt Count (150-450) k/uL Neutrophils # (1.3-7.7) k/uL Lymphocytes # (1.0-4.8) k/uL Retic Count (0.5-2.0) % PT 21.4 H (9.0-12.0) sec INR 2.2 H (<1.2) APTT 39.2 H (22.0-30.0) sec Sodium 133 L (137-145) mmol/L Carbon Dioxide 18 L (22-30) mmol/L BUN 57 H (7-17) mg/dL Creatinine 2.82 H (0.52-1.04) mg/dL POC Glucose (mg/dL) (75-99) mg/dL Plasma Lactic Acid Severo (0.7-2.0) mmol/L Uric Acid (3.7-7.4) mg/dL Calcium 7.9 L (8.4-10.2) mg/dL Iron (50-170) ug/dL Lactate Dehydrogenase (313-618) U/L Microbiology - Last 24 Hours (Table) 09/24/19 21:10 Gram Stain - Preliminary Hip - Right Wound Culture - Preliminary 09/24/19 21:10 Gram Stain - Preliminary Other - Other Wound Culture - Preliminary 09/24/19 21:10 Anaerobic Culture - Preliminary Hip - Right 09/24/19 21:10 Anaerobic Culture - Preliminary Coccyx Diabetes panel 09/25/19 Range/Units 06:59 Sodium 133 L (137-145) mmol/L Potassium 4.6 (3.5-5.1) mmol/L Chloride 104 (98-107) mmol/L Carbon Dioxide 18 L (22-30) mmol/L BUN 57 H (7-17) mg/dL Creatinine 2.82 H (0.52-1.04) mg/dL Glucose 88 (74-99) mg/dL Calcium 7.9 L (8.4-10.2) mg/dL Calcium panel 09/25/19 Range/Units 06:59 Calcium 7.9 L (8.4-10.2) mg/dL Pituitary panel 09/25/19 Range/Units 06:59 Sodium 133 L (137-145) mmol/L Potassium 4.6 (3.5-5.1) mmol/L Chloride 104 (98-107) mmol/L Carbon Dioxide 18 L (22-30) mmol/L BUN 57 H (7-17) mg/dL Creatinine 2.82 H (0.52-1.04) mg/dL Glucose 88 (74-99) mg/dL Calcium 7.9 L (8.4-10.2) mg/dL Adrenal panel 09/25/19 Range/Units 06:59 Sodium 133 L (137-145) mmol/L Potassium 4.6 (3.5-5.1) mmol/L Chloride 104 (98-107) mmol/L Carbon Dioxide 18 L (22-30) mmol/L BUN 57 H (7-17) mg/dL Creatinine 2.82 H (0.52-1.04) mg/dL Glucose 88 (74-99) mg/dL Calcium 7.9 L (8.4-10.2) mg/dL Assessment and Plan (1) Diffuse lymphadenopathy Narrative/Plan: 69-year-old female being worked up for diffuse adenopathy. Underlying lymphoma suspected. Once cleared from subspecialties will plan excisional biopsy right inguinal lymph node. Tentatively have put on the schedule for tomorrow since they are saying in OR scheduling that Monday is very full. Continue to hold anticoagulation. Risks discussed with the patient. Risks of bleeding, infection, seroma, wound, nerve injury, inadequate specimen reviewed. She understands and wishes to proceed. Current Visit: Yes Status: Acute Code(s): R59.1 - GENERALIZED ENLARGED LYMPH NODES SNOMED Code(s): 715684109
[2019-09-25] MEDS ORDERED: RASBURICASE 6 MG in SODIUM CHLORIDE 0.9% 46 ML IV ONE (11:00)
[2019-09-25 11:47] LABS: Folate, Serum 2.3 ng/mL
[2019-09-25 11:55] LABS: % Iron Saturation 8.77 (12.00-45.00); Ferritin 496.2 ng/mL (10.0-291.0)
--- NOTE | 2019-09-25 13:13 | P.PN ---
Subjective Progress Note Date: 09/25/19 Principal diagnosis: Acute dehydration, acute on chronic hypoxic respiratory failure secondary to COPD, metastatic nodules involving both lungs, and left pleural effusion. This is a 69-year-old female patient who follows with Dr. Nuñez as her primary care provider. She has a history of diabetes mellitus, hypertension, hyperlipidemia, hypothyroidism, atrial fibrillation anticoagulated with Eliquis, coronary artery disease with previous HI, breast cancer with bilateral mast ectomies in 2006. She also is known to have multiple pulmonary nodules, mediastinal adenopathy, abdominal lymphadenopathy. She had been seen by our group including Dr. De La Vega at one point in August 2019 and again later that same month by Dr. Dominguez at [facility] after sustaining a hip fracture with surgical repair and subsequent transfer to [facility] for rehabilitation. Apparently she had done at [facility] prior to that. The details of which were unclear. The patient was quite confused as to whether or not she had any previous lung biopsy there as well. She was brought here to the emergency room last evening with concerns regarding dehydration. She had had a poor appetite and decreased oral intake while recovering in [facility]. She is seen today in consultation in the emergency room. She is currently awake and alert but somewhat confused to time and place. She is having some abdominal discomfort. Abdominal x-ray was nonspecific. Chest x-ray shows multiple pulmonary nodules worsening in comparison to 08/11/2019 and a small to moderate left pleural effusion. White count 12.0. Hemoglobin 9.3. Sodium 136. Potassium 4.4. BUN 56. Creatinine 2.51. Lactic acid 3.1. AST 73. ALT 26. Urine with moderate bacteria. CoVID 19 screen pending. Patient was reevaluated today on 09/25/19, patient was transferred to the ICU as a selective overflow because she developed atrial fibrillation with RVR while on the medical floor. Patient was seen by cardiology, placed on Cardizem drip, and she is now on Cardizem at 5 mg per hour. Patient is now in sinus rhythm, rate is 93/m. The patient is requesting to be sent home, patient is a bit confused, and after reviewing her overall status, I honestly believe the patient should be sent home with hospice. However she was seen by other consultants/including oncology, and now the recommendation is to proceed with lymph node biopsy from the right groin although the patient is not in any shape for any chemotherapy considering her overall clinical status. Patient also has multiple pulmonary nodules these are felt to be metastatic nodules most likely from breast cancer and she may have underlying lymphoma. CBC today is relatively unremarkable, her BUN is 57 creatinine 2.82, lactic acid is 2.6. No documented fever since admission, however I will recommend culturing the fluid from her hip. Since she has some ongoing drainage at the surgical site. Objective - Vital Signs Vital signs: Vital Signs Temp 97.9 F 09/25/19 08:00 Pulse 89 09/25/19 11:00 Resp 20 09/25/19 11:00 BP 101/53 09/25/19 11:00 Pulse Ox 96 09/25/19 08:30 Intake & Output 09/24/19 09/25/19 09/25/19 18:59 06:59 18:59 Output Total 304 Balance -304 Weight 89 kg Output: Post Void Residual 304 Other: Voiding Method Diaper Diaper # Voids 2 - Exam GENERAL EXAM: Alert, confused, obese 69-year-old female patient, slow to respond, on 4 L nasal cannula, fairly comfortable in no apparent distress. HEAD: Normocephalic. EYES: Normal reaction of pupils, equal size. NOSE: Clear with pink turbinates. THROAT: No erythema or exudates. NECK: Cervical lymphadenopathy palpable, no JVD. CHEST: No chest wall deformity. LUNGS: Equal air entry with bilateral scattered rhonchi, crackles in left base, diminished. CVS: S1 and S2 normal with no audible murmur, regular rhythm. ABDOMEN: Abdominal lymphadenopathy palpable, normal bowel sounds, no guarding or rigidity.y SKIN: Drainage noted from right hip surgical site./Serous CENTRAL NERVOUS SYSTEM: Patient is confused, oriented 2 only. EXTREMITIES: There is no peripheral edema. No clubbing, no cyanosis. Peripheral pulses are intact. Serous drainage noted from the right hip surgical site Lymphatics: Multiple areas of lymphadenopathy noted in the cervical region, supraclavicular region, and in the groins bilaterally. - Labs CBC & Chem 7: 09/25/19 06:59 09/25/19 06:59 Labs: Abnormal Lab Results - Last 24 Hours (Table) 09/24/19 09/24/19 09/24/19 Range/Units 15:16 18:18 18:18 WBC (3.8-10.6) k/uL Hgb (11.4-16.0) gm/dL MCHC (31.0-37.0) g/dL RDW (11.5-15.5) % Plt Count (150-450) k/uL Neutrophils # (1.3-7.7) k/uL Lymphocytes # (1.0-4.8) k/uL Retic Count (0.5-2.0) % PT 20.7 H (9.0-12.0) sec INR 2.1 H (<1.2) APTT 32.9 H (22.0-30.0) sec Sodium (137-145) mmol/L Carbon Dioxide (22-30) mmol/L BUN (7-17) mg/dL Creatinine (0.52-1.04) mg/dL POC Glucose (mg/dL) (75-99) mg/dL Plasma Lactic Acid Severo 2.5 H* (0.7-2.0) mmol/L Uric Acid 14.2 H (3.7-7.4) mg/dL Calcium (8.4-10.2) mg/dL Iron 20 L (50-170) ug/dL % Saturation 8.77 L (12.00-45.00) Ferritin 496.2 H (10.0-291.0) ng/mL Lactate Dehydrogenase 2132 H (313-618) U/L 09/24/19 09/24/19 09/24/19 Range/Units 18:18 18:18 18:45 WBC (3.8-10.6) k/uL Hgb (11.4-16.0) gm/dL MCHC (31.0-37.0) g/dL RDW (11.5-15.5) % Plt Count (150-450) k/uL Neutrophils # (1.3-7.7) k/uL Lymphocytes # (1.0-4.8) k/uL Retic Count 3.0 H (0.5-2.0) % PT (9.0-12.0) sec INR (<1.2) APTT (22.0-30.0) sec Sodium (137-145) mmol/L Carbon Dioxide (22-30) mmol/L BUN (7-17) mg/dL Creatinine (0.52-1.04) mg/dL POC Glucose (mg/dL) (75-99) mg/dL Plasma Lactic Acid Severo 2.7 H* (0.7-2.0) mmol/L Uric Acid (3.7-7.4) mg/dL Calcium (8.4-10.2) mg/dL Iron 19 L (50-170) ug/dL % Saturation (12.00-45.00) Ferritin (10.0-291.0) ng/mL Lactate Dehydrogenase (313-618) U/L 09/24/19 09/25/19 09/25/19 Range/Units 23:03 00:06 02:42 WBC (3.8-10.6) k/uL Hgb (11.4-16.0) gm/dL MCHC (31.0-37.0) g/dL RDW (11.5-15.5) % Plt Count (150-450) k/uL Neutrophils # (1.3-7.7) k/uL Lymphocytes # (1.0-4.8) k/uL Retic Count (0.5-2.0) % PT (9.0-12.0) sec INR (<1.2) APTT (22.0-30.0) sec Sodium (137-145) mmol/L Carbon Dioxide (22-30) mmol/L BUN (7-17) mg/dL Creatinine (0.52-1.04) mg/dL POC Glucose (mg/dL) 103 H (75-99) mg/dL Plasma Lactic Acid Severo 2.6 H* 2.5 H* (0.7-2.0) mmol/L Uric Acid (3.7-7.4) mg/dL Calcium (8.4-10.2) mg/dL Iron (50-170) ug/dL % Saturation (12.00-45.00) Ferritin (10.0-291.0) ng/mL Lactate Dehydrogenase (313-618) U/L 09/25/19 09/25/19 09/25/19 Range/Units 06:55 06:59 06:59 WBC 14.4 H (3.8-10.6) k/uL Hgb 10.6 L (11.4-16.0) gm/dL MCHC 29.7 L (31.0-37.0) g/dL RDW 18.2 H (11.5-15.5) % Plt Count 542 H (150-450) k/uL Neutrophils # 13.3 H (1.3-7.7) k/uL Lymphocytes # 0.3 L (1.0-4.8) k/uL Retic Count (0.5-2.0) % PT (9.0-12.0) sec INR (<1.2) APTT (22.0-30.0) sec Sodium 133 L (137-145) mmol/L Carbon Dioxide 18 L (22-30) mmol/L BUN 57 H (7-17) mg/dL Creatinine 2.82 H (0.52-1.04) mg/dL POC Glucose (mg/dL) (75-99) mg/dL Plasma Lactic Acid Severo 3.2 H* (0.7-2.0) mmol/L Uric Acid (3.7-7.4) mg/dL Calcium 7.9 L (8.4-10.2) mg/dL Iron (50-170) ug/dL % Saturation (12.00-45.00) Ferritin (10.0-291.0) ng/mL Lactate Dehydrogenase (313-618) U/L 09/25/19 09/25/19 Range/Units 09:56 11:24 WBC (3.8-10.6) k/uL Hgb (11.4-16.0) gm/dL MCHC (31.0-37.0) g/dL RDW (11.5-15.5) % Plt Count (150-450) k/uL Neutrophils # (1.3-7.7) k/uL Lymphocytes # (1.0-4.8) k/uL Retic Count (0.5-2.0) % PT 21.4 H (9.0-12.0) sec INR 2.2 H (<1.2) APTT 39.2 H (22.0-30.0) sec Sodium (137-145) mmol/L Carbon Dioxide (22-30) mmol/L BUN (7-17) mg/dL Creatinine (0.52-1.04) mg/dL POC Glucose (mg/dL) (75-99) mg/dL Plasma Lactic Acid Severo 2.6 H* (0.7-2.0) mmol/L Uric Acid (3.7-7.4) mg/dL Calcium (8.4-10.2) mg/dL Iron (50-170) ug/dL % Saturation (12.00-45.00) Ferritin (10.0-291.0) ng/mL Lactate Dehydrogenase (313-618) U/L Microbiology - Last 24 Hours (Table) 09/24/19 21:10 Gram Stain - Preliminary Hip - Right Wound Culture - Preliminary 09/24/19 21:10 Gram Stain - Preliminary Other - Other Wound Culture - Preliminary 09/24/19 21:10 Anaerobic Culture - Preliminary Hip - Right 09/24/19 21:10 Anaerobic Culture - Preliminary Coccyx Assessment and Plan Assessment: Altered mental status, weakness and dehydration secondary to poor oral intake, this is mostly suggestive of metabolic encephalopathy Acute hypoxic respiratory failure secondary to worsening multilobar pulmonary nodules and left pleural effusion Acute renal failure secondary to dehydration and poor oral intake Acute urinary tract infection History of multiple pulmonary nodules, mediastinal adenopathy, abdominal lymphadenopathy. Multiple palpable lymph nodes. History of breast cancer with previous bilateral mastectomies in 2006 Recent right hip fracture status post repair at [facility] in August 2019 recovering at extended care facility History of atrial fibrillation anticoagulated with Eliquis in the past History of coronary artery disease with previous myocardial infarction History of chronic obstructive pulmonary disease Chronic and ongoing tobacco dependence of greater than 40 years Diabetes mellitus Hypertension Hyperlipidemia Hypothyroidism Chronic anxiety Osteoarthritis Obesity Poor overall functional performance based on the above-mentioned multiple comorbidities Recommendation: Continue present supportive care measures, Reviewed some of the laboratory studies done at [facility], no definitive diagnosis was made from the lymph nodes biopsy, Suggest comfort care measures and hospice/palliative care. Clinically I don't believe the patient is a good candidate for any chemo therapy. Patient will be empirically placed on Rocephin, awaiting results of cultures from right hip drainage, and her urine cultures. Time with Patient: Less than 30
--- NOTE | 2019-09-25 14:14 | P.PN ---
Subjective Progress Note Date: 09/25/19 This is a 69-year-old female patient of Dr. Bailey with past medical history of severe COPD and chronic hypoxic respiratory failure, bilateral pulmonary nodules with mediastinal adenopathy and intra-abdominal adenopathy consistent with metastatic disease most likely breast cancer with metastasis, history of left breast cancer and bilateral mastectomies in 2006 followed by chemotherapy and tamoxifen therapy, paroxysmal atrial fibrillation on long-term anticoagulation with eliquis, history of OR and coronary artery disease, hypertension, hyperlipidemia, generalized anxiety disorder, diabetes mellitus type 2, hypothyroidism, generalized osteoarthritis. Patient had a recent right hip fracture secondary to fall status post right hemiarthroplasty on August 25 surgery done at [facility] with Dr. Arciniega and subsequently discharged to [facility] under the care of Dr. Bailey for subacute rehab. Patient was prepared for discharge from rehab yesterday but was found to have a low blood pressure and high heart rate, mental status changes, generalized weakness and inability to stand. Discharge was held and patient was transferred to [facility] for further evaluation. Regarding patient's cancer history, she was followed at [facility] by oncology and apparently had a biopsy done and results were not known. Echocardiogram done on August 25 revealed normal LV function. No valvular heart disease. In the emergency center, patient was found to be afebrile, initial blood pressure 87/47, heart rate in the 90s, pulse ox 95% on room air. WBC 11.6, hemoglobin 9.5, platelet count 477. Sodium 133, potassium 4.7, chloride 96, CO2 23, BUN 56 creatinine 2.57, blood sugar 91. INR 2.1. Lactic acid 4.0. Total bilirubin 0.5, AST 73, ALT 26, alkaline phosphatase 215. Urinalysis cloudy nitrate and leukoesterase negative, bacteria moderate. EKG was a sinus rhythm with T-wave inversion in leads 6. Chest x-ray revealed developing multiple pulmonary nodules worsening from comparison. Interval development of a small approaching moderate left pleural effusion. This was compared to chest x-ray from August 10. Abdominal x-ray revealed nonspecific abdomen. Patient is status post 2 L of IV fluids, admitted to the cardiac stepdown unit and consult requested with Dr. Mackey regarding metastatic disease, Dr. Grider for lymph node biopsy, Dr. De La Vega for lung cancer. COVID-19 testing is pending. Patient states that she wishes to BE a no CODE STATUS. There apparently has been talk of hospice care for the patient. 09/24: CAT scan of the brain revealed possible age-related changes of atrophy and chronic small vessel ischemic changes. Patient has been evaluated by oncology and workup is for lymphoma, Dr. Grider is tentatively scheduled for lymph node biopsy on Monday. Tumor markers and ultrasound of bilateral lower extremities have been ordered. Patient has been evaluated by Dr. Dominguez with recommendations for comfort care. This morning, patient developed A. fib with RVR running up to 200 bpm. Patient was transferred into the intensive care unit where Cardizem drip was then added and cardiology consult. Additional consults include Dr. Garza and Dr. Barrera. Renal ultrasound is also been ordered and is pending. Patient is afebrile, heart rate 93, blood pressure 87/52, pulse ox 96% on 6 L nasal cannula. Repeat blood work reveals WBC of 14.4, hemoglobin 10.6, platelet count 542, INR 2.2. His sodium 133, potassium 4.6, chloride 104, CO2 18, BUN 57 creatinine 2.82, repeat lactic acid most recently 2.6. Objective - Vital Signs Vital signs: Vital Signs Temp 97.9 F 09/25/19 08:00 Pulse 89 09/25/19 11:00 Resp 20 09/25/19 11:00 BP 101/53 09/25/19 11:00 Pulse Ox 96 09/25/19 08:30 Intake & Output 09/24/19 09/25/19 09/25/19 18:59 06:59 18:59 Output Total 304 Balance -304 Weight 89 kg Output: Post Void Residual 304 Other: Voiding Method Diaper Diaper # Voids 2 - Exam Review Of Systems: Constitutional: No fever, no chills, no night sweats. No weight change. Repo rts weakness, Reportsfatigue Reports lethargy. Reports daytime sleepiness. EENT: No headache. No blurred vision or double vision, no loss of vision. No loss of Hearing, no ringing in the ears, no dizziness. No nasal drainage or congestion. No epistaxis. No sore throat. Lungs: No shortness of breath, cough, no sputum production. No wheezing. Cardiovascular: No chest pain, no lower extremity edema. No palpitations. No paroxysmal nocturnal dyspnea. No orthopnea. Reports lightheadedness or dizziness. No syncopal episodes. Abdominal: No abdominal pain. No nausea, vomiting. No diarrhea. No constipation. No bloody or tarry stools. No loss of appetite. Genitourinary: No dysuria, increased frequency, urgency. No urinary retention. Musculoskeletal: Reports myalgias. Reports muscle weakness, Reports gait dysfunction, no frequent falls. Reports back pain. No neck pain. Integumentary: Reports wounds, no lesions. No rash or pruritus. No unusual bruising. Neurologic: No aphasia. No facial droop. Reports change in mentation. No head injury. No headache. No paralysis. No paresthesia. Psychiatric: No depression. No anxiety. No mood swings. Endocrine: No abnormal blood sugars. No weight change. No excessive sweating or thirst. No cold intolerance. Physical examination: Gen: This is a 69-year-old female. She is resting in bed and appears to be comfortable. HEENT: Head is atraumatic, normocephalic. Pupils equal, round. Sclerae is anicteric. NECK: Supple. No JVD. Large cervical lymphadenopathy. No thyromegaly. LUNGS: Diminished breath sounds bilaterally, symmetrical chest expansion, no wheezes, rhonchi. No intercostal retractions. HEART: Irregular rate and rhythm. No murmur. ABDOMEN: Soft. Bowel sounds are present. No masses. No tenderness. EXTREMITIES: 1+ right pedal edema. No calf tenderness. Patient has large lymph node to the right groin, several lymph nodes enlarged in the left groin. Right hip wound shows no drainage. Patient has a decubitus ulcer to the sacrum covered with dressing. NEUROLOGICAL: Patient is awake, alert and oriented to person and place, poor short-term memory, intermittently confused, poor historian. Generalized weakness - Labs CBC & Chem 7: 09/25/19 06:59 09/25/19 06:59 Labs: Abnormal Lab Results - Last 24 Hours (Table) 09/24/19 09/24/19 09/24/19 Range/Units 15:16 18:18 18:18 WBC (3.8-10.6) k/uL Hgb (11.4-16.0) gm/dL MCHC (31.0-37.0) g/dL RDW (11.5-15.5) % Plt Count (150-450) k/uL Neutrophils # (1.3-7.7) k/uL Lymphocytes # (1.0-4.8) k/uL Retic Count (0.5-2.0) % PT 20.7 H (9.0-12.0) sec INR 2.1 H (<1.2) APTT 32.9 H (22.0-30.0) sec Sodium (137-145) mmol/L Carbon Dioxide (22-30) mmol/L BUN (7-17) mg/dL Creatinine (0.52-1.04) mg/dL POC Glucose (mg/dL) (75-99) mg/dL Plasma Lactic Acid Severo 2.5 H* (0.7-2.0) mmol/L Uric Acid 14.2 H (3.7-7.4) mg/dL Calcium (8.4-10.2) mg/dL Iron 20 L (50-170) ug/dL % Saturation 8.77 L (12.00-45.00) Ferritin 496.2 H (10.0-291.0) ng/mL Lactate Dehydrogenase 2132 H (313-618) U/L 09/24/19 09/24/19 09/24/19 Range/Units 18:18 18:18 18:45 WBC (3.8-10.6) k/uL Hgb (11.4-16.0) gm/dL MCHC (31.0-37.0) g/dL RDW (11.5-15.5) % Plt Count (150-450) k/uL Neutrophils # (1.3-7.7) k/uL Lymphocytes # (1.0-4.8) k/uL Retic Count 3.0 H (0.5-2.0) % PT (9.0-12.0) sec INR (<1.2) APTT (22.0-30.0) sec Sodium (137-145) mmol/L Carbon Dioxide (22-30) mmol/L BUN (7-17) mg/dL Creatinine (0.52-1.04) mg/dL POC Glucose (mg/dL) (75-99) mg/dL Plasma Lactic Acid Severo 2.7 H* (0.7-2.0) mmol/L Uric Acid (3.7-7.4) mg/dL Calcium (8.4-10.2) mg/dL Iron 19 L (50-170) ug/dL % Saturation (12.00-45.00) Ferritin (10.0-291.0) ng/mL Lactate Dehydrogenase (313-618) U/L 09/24/19 09/25/19 09/25/19 Range/Units 23:03 00:06 02:42 WBC (3.8-10.6) k/uL Hgb (11.4-16.0) gm/dL MCHC (31.0-37.0) g/dL RDW (11.5-15.5) % Plt Count (150-450) k/uL Neutrophils # (1.3-7.7) k/uL Lymphocytes # (1.0-4.8) k/uL Retic Count (0.5-2.0) % PT (9.0-12.0) sec INR (<1.2) APTT (22.0-30.0) sec Sodium (137-145) mmol/L Carbon Dioxide (22-30) mmol/L BUN (7-17) mg/dL Creatinine (0.52-1.04) mg/dL POC Glucose (mg/dL) 103 H (75-99) mg/dL Plasma Lactic Acid Severo 2.6 H* 2.5 H* (0.7-2.0) mmol/L Uric Acid (3.7-7.4) mg/dL Calcium (8.4-10.2) mg/dL Iron (50-170) ug/dL % Saturation (12.00-45.00) Ferritin (10.0-291.0) ng/mL Lactate Dehydrogenase (313-618) U/L 09/25/19 09/25/19 09/25/19 Range/Units 06:55 06:59 06:59 WBC 14.4 H (3.8-10.6) k/uL Hgb 10.6 L (11.4-16.0) gm/dL MCHC 29.7 L (31.0-37.0) g/dL RDW 18.2 H (11.5-15.5) % Plt Count 542 H (150-450) k/uL Neutrophils # 13.3 H (1.3-7.7) k/uL Lymphocytes # 0.3 L (1.0-4.8) k/uL Retic Count (0.5-2.0) % PT (9.0-12.0) sec INR (<1.2) APTT (22.0-30.0) sec Sodium 133 L (137-145) mmol/L Carbon Dioxide 18 L (22-30) mmol/L BUN 57 H (7-17) mg/dL Creatinine 2.82 H (0.52-1.04) mg/dL POC Glucose (mg/dL) (75-99) mg/dL Plasma Lactic Acid Severo 3.2 H* (0.7-2.0) mmol/L Uric Acid (3.7-7.4) mg/dL Calcium 7.9 L (8.4-10.2) mg/dL Iron (50-170) ug/dL % Saturation (12.00-45.00) Ferritin (10.0-291.0) ng/mL Lactate Dehydrogenase (313-618) U/L 09/25/19 09/25/19 Range/Units 09:56 11:24 WBC (3.8-10.6) k/uL Hgb (11.4-16.0) gm/dL MCHC (31.0-37.0) g/dL RDW (11.5-15.5) % Plt Count (150-450) k/uL Neutrophils # (1.3-7.7) k/uL Lymphocytes # (1.0-4.8) k/uL Retic Count (0.5-2.0) % PT 21.4 H (9.0-12.0) sec INR 2.2 H (<1.2) APTT 39.2 H (22.0-30.0) sec Sodium (137-145) mmol/L Carbon Dioxide (22-30) mmol/L BUN (7-17) mg/dL Creatinine (0.52-1.04) mg/dL POC Glucose (mg/dL) (75-99) mg/dL Plasma Lactic Acid Severo 2.6 H* (0.7-2.0) mmol/L Uric Acid (3.7-7.4) mg/dL Calcium (8.4-10.2) mg/dL Iron (50-170) ug/dL % Saturation (12.00-45.00) Ferritin (10.0-291.0) ng/mL Lactate Dehydrogenase (313-618) U/L Microbiology - Last 24 Hours (Table) 09/24/19 21:10 Gram Stain - Preliminary Hip - Right Wound Culture - Preliminary 09/24/19 21:10 Gram Stain - Preliminary Other - Other Wound Culture - Preliminary 09/24/19 21:10 Anaerobic Culture - Preliminary Hip - Right 09/24/19 21:10 Anaerobic Culture - Preliminary Coccyx Assessment and Plan Plan: 1. Acute renal failure and dehydration. Continue IV fluids at 100 mL per hour, avoid nephrotoxic agents, recheck electrolytes and renal function in the morning. 2. Metabolic encephalopathy with confusion most likely secondary to acute renal failure. 3. Pulmonary nodules with mediastinal adenopathy and intra-abdominal adenopathy consistent with most likely lymphoma. Consult with Dr. Mackey and pulmonary medicine. Consult with Dr. Grider for biopsy. Hold eliquis. Previous fine- needle aspiration of lymph node was inconclusive. Consult with oncology appreciated. Lower extremity ultrasounds for DVT, Tumor markers ordered. 4. Left pleural effusion. This was noted at [facility] admission as well. 5. SIRS and lactic acidosis with leukocytosis, hypotension, tachycardia. Patient is status post 2 L of IV fluid. Continue IV fluid at 100 mL per hour. 6. Abdominal pain and elevated liver function tests. Suspicion for metastasis but elevated liver function tests may be due to hypotension, shock liver. Abdominal film revealed nonspecific abdomen. Monitor liver function tests 7. Severe COPD and chronic hypoxic respiratory failure, stable. 8. Recent acute right hip fracture status post right hemiarthroplasty completed on August 25. 9. History of breast cancer and bilateral mastectomies in 2006 followed by chemotherapy and tamoxifen therapy. 10. Paroxysmal atrial fibrillation on long-term anticoagulation with eliquis. Hold eliquis for anticipated biopsy. Continue Toprol-XL 25 mg daily with parameters. 11. History of OR and coronary artery disease. Continue Imdur 30 mg daily. 12. Hypertension. Continue Toprol-XL with parameters. 13. Hyperlipidemia. Continue Lipitor 10 mg at bedtime. 14. Generalized anxiety disorder. Continue Celexa 20 mg daily, Remeron 15 mg at bedtime. 15. Diabetes mellitus type 2, insulin requiring. Continue NovoLog 70/30 5 units twice daily, NovoLog scale. Hold metformin. 16. Hypothyroidism. Continue [place] Thyroid 180 mg daily 17. Tobacco use and dependence. Nicotine patch. 18. Moderate protein calorie malnutrition. Continue Magic cups, Remeron at bedtime. 19. GI prophylaxis. Protonix. 20. DVT prophylaxis. Patient will be resumed on eliquis once biopsy is c ompleted. 21. COVID-19 infection tested. 22. Stage II decubitus ulcer to the sacrum. Present on admission. 23. Anemia. Iron studies ordered by oncology. CODE STATUS: No code per patient wishes Discharge plan: Return to [facility] Impression and plan of care have been directed as dictated by the signing physician. Solange Griffin nurse practitioner acting as scribe for signing physician.
--- NOTE | 2019-09-25 15:15 | CONS ---
CONSULTATION CHIEF COMPLAINT: Paroxysmal atrial fibrillation This is a 69-year-old lady with complex and multiple medical problems including coronary artery disease, status post prior angioplasty, paroxysmal atrial fibrillation, hypertension, diabetes, dyslipidemia, and history of carcinoma of the breast, who is admitted to hospital with symptoms of hypotension and tachycardia. She has history of COPD, respiratory failure and pulmonary nodule. She has intraabdominal adenopathy, neck masses and also masses in her groin. After coming in, she developed atrial fibrillation with rapid ventricular rate, but converted back to sinus rhythm. At the time of my evaluation she complains of generalized weakness, inability to stand and some mental status changes. Blood pressure is somewhat low. EKG shows normal sinus rhythm with nonspecific ST-T wave changes. LABS: Show that the hemoglobin is 10.6, INR is 2.2, potassium is 4.6, BUN is 57, and creatinine is 2.8. The patient is needs a biopsy of the lymph node in her groin. I think I believe she is an acceptable risk candidate for the same. PAST MEDICAL HISTORY: Significant for coronary artery disease, status post angioplasty, hypertension, diabetes, dyslipidemia, COPD. MEDICATIONS: At home included tramadol, [place], Imodium, Dulcolax, metformin, insulin, Eliquis 5 b.i.d., Colace, Synthroid, Remeron, Toprol, Imdur, Celexa and Lipitor. Patient is allergic to IV DYE and PENICILLIN. FAMILY HISTORY: Negative for premature coronary artery disease. SOCIAL HISTORY: Negative for smoking, EtOH abuse, or drug abuse. REVIEW OF SYSTEMS: HEENT: Unremarkable. CARDIAC: As described above. RESPIRATORY: Negative. GI: Negative. GENITOURINARY: Negative. ALLERGY/IMMUNOLOGY: Negative. SKIN: Negative. MUSCULOSKELETAL: Negative. ENDOCRINE: Negative. DERM: Negative. ONCOLOGICAL: Negative. CONSTITUTIONAL: Significant for fatigue, tiredness, not feeling well. PHYSICAL EXAM: Afebrile. Heart rate is 89 beats per minute. Blood pressure is 101/50, respiratory rate is 18. Chest exam reveals good air entry bilaterally. Heart exam reveals first and second heart sounds. No gallop. Abdomen is soft. Exam of the extremities did not reveal any edema. LABS: Show a hemoglobin of 10.6, potassium is 4.6, creatinine is 2.8. ASSESSMENT: 1. Paroxysmal atrial fibrillation. 2. Coronary artery disease, status post angioplasty. 3. History of breast cancer. 4. Adenopathy. PLAN: I will obtain a 2D echo to assess her LV function. Patient has elevated INR and this could be related to the question of possible underlying metastatic cancer. She has not been taking the Eliquis for the last few days from what I am told. I do not see any cardiac contraindications for surgery. MMODL / IJN: [id number] /
--- NOTE | 2019-09-25 15:32 | P.PN ---
Subjective Progress Note Date: 09/25/19 Principal diagnosis: Sars, Adenopathy, Acute hypoxia. She is now in ICU/Stepdown care for closer management. She is requiring greater oxygen need - 6L todays Objective - Vital Signs Vital signs: Vital Signs Temp 97.9 F 09/25/19 08:00 Pulse 89 09/25/19 11:00 Resp 20 09/25/19 11:00 BP 101/53 09/25/19 11:00 Pulse Ox 96 09/25/19 08:30 Intake & Output 09/24/19 09/25/19 09/25/19 18:59 06:59 18:59 Output Total 304 Balance -304 Weight 89 kg Output: Post Void Residual 304 Other: Voiding Method Diaper Diaper # Voids 2 - Exam Alert, poor historian, mild distress LN: Palpable adenopathy, submandibular left jaw and bilateral inguinal nodes Heart: Irr Lungs: Diminished throughout and increased effort Abdomen: Firm, mild distention, nodularity and firm Left hip with draining incision wound LE: LLE edema RUE Edema (prior breast cancer history and side of lymphedema. mood: Frustrated, confused - Labs CBC & Chem 7: 09/25/19 06:59 09/25/19 06:59 Labs: Abnormal Lab Results - Last 24 Hours (Table) 09/24/19 09/24/19 09/24/19 Range/Units 15:16 18:18 18:18 WBC (3.8-10.6) k/uL Hgb (11.4-16.0) gm/dL MCHC (31.0-37.0) g/dL RDW (11.5-15.5) % Plt Count (150-450) k/uL Neutrophils # (1.3-7.7) k/uL Lymphocytes # (1.0-4.8) k/uL Retic Count (0.5-2.0) % PT 20.7 H (9.0-12.0) sec INR 2.1 H (<1.2) APTT 32.9 H (22.0-30.0) sec Sodium (137-145) mmol/L Carbon Dioxide (22-30) mmol/L BUN (7-17) mg/dL Creatinine (0.52-1.04) mg/dL POC Glucose (mg/dL) (75-99) mg/dL Plasma Lactic Acid Severo 2.5 H* (0.7-2.0) mmol/L Uric Acid 14.2 H (3.7-7.4) mg/dL Calcium (8.4-10.2) mg/dL Iron 20 L (50-170) ug/dL % Saturation 8.77 L (12.00-45.00) Ferritin 496.2 H (10.0-291.0) ng/mL Lactate Dehydrogenase 2132 H (313-618) U/L 09/24/19 09/24/19 09/24/19 Range/Units 18:18 18:18 18:45 WBC (3.8-10.6) k/uL Hgb (11.4-16.0) gm/dL MCHC (31.0-37.0) g/dL RDW (11.5-15.5) % Plt Count (150-450) k/uL Neutrophils # (1.3-7.7) k/uL Lymphocytes # (1.0-4.8) k/uL Retic Count 3.0 H (0.5-2.0) % PT (9.0-12.0) sec INR (<1.2) APTT (22.0-30.0) sec Sodium (137-145) mmol/L Carbon Dioxide (22-30) mmol/L BUN (7-17) mg/dL Creatinine (0.52-1.04) mg/dL POC Glucose (mg/dL) (75-99) mg/dL Plasma Lactic Acid Severo 2.7 H* (0.7-2.0) mmol/L Uric Acid (3.7-7.4) mg/dL Calcium (8.4-10.2) mg/dL Iron 19 L (50-170) ug/dL % Saturation (12.00-45.00) Ferritin (10.0-291.0) ng/mL Lactate Dehydrogenase (313-618) U/L 09/24/19 09/25/19 09/25/19 Range/Units 23:03 00:06 02:42 WBC (3.8-10.6) k/uL Hgb (11.4-16.0) gm/dL MCHC (31.0-37.0) g/dL RDW (11.5-15.5) % Plt Count (150-450) k/uL Neutrophils # (1.3-7.7) k/uL Lymphocytes # (1.0-4.8) k/uL Retic Count (0.5-2.0) % PT (9.0-12.0) sec INR (<1.2) APTT (22.0-30.0) sec Sodium (137-145) mmol/L Carbon Dioxide (22-30) mmol/L BUN (7-17) mg/dL Creatinine (0.52-1.04) mg/dL POC Glucose (mg/dL) 103 H (75-99) mg/dL Plasma Lactic Acid Severo 2.6 H* 2.5 H* (0.7-2.0) mmol/L Uric Acid (3.7-7.4) mg/dL Calcium (8.4-10.2) mg/dL Iron (50-170) ug/dL % Saturation (12.00-45.00) Ferritin (10.0-291.0) ng/mL Lactate Dehydrogenase (313-618) U/L 09/25/19 09/25/19 09/25/19 Range/Units 06:55 06:59 06:59 WBC 14.4 H (3.8-10.6) k/uL Hgb 10.6 L (11.4-16.0) gm/dL MCHC 29.7 L (31.0-37.0) g/dL RDW 18.2 H (11.5-15.5) % Plt Count 542 H (150-450) k/uL Neutrophils # 13.3 H (1.3-7.7) k/uL Lymphocytes # 0.3 L (1.0-4.8) k/uL Retic Count (0.5-2.0) % PT (9.0-12.0) sec INR (<1.2) APTT (22.0-30.0) sec Sodium 133 L (137-145) mmol/L Carbon Dioxide 18 L (22-30) mmol/L BUN 57 H (7-17) mg/dL Creatinine 2.82 H (0.52-1.04) mg/dL POC Glucose (mg/dL) (75-99) mg/dL Plasma Lactic Acid Severo 3.2 H* (0.7-2.0) mmol/L Uric Acid (3.7-7.4) mg/dL Calcium 7.9 L (8.4-10.2) mg/dL Iron (50-170) ug/dL % Saturation (12.00-45.00) Ferritin (10.0-291.0) ng/mL Lactate Dehydrogenase (313-618) U/L 09/25/19 09/25/19 Range/Units 09:56 11:24 WBC (3.8-10.6) k/uL Hgb (11.4-16.0) gm/dL MCHC (31.0-37.0) g/dL RDW (11.5-15.5) % Plt Count (150-450) k/uL Neutrophils # (1.3-7.7) k/uL Lymphocytes # (1.0-4.8) k/uL Retic Count (0.5-2.0) % PT 21.4 H (9.0-12.0) sec INR 2.2 H (<1.2) APTT 39.2 H (22.0-30.0) sec Sodium (137-145) mmol/L Carbon Dioxide (22-30) mmol/L BUN (7-17) mg/dL Creatinine (0.52-1.04) mg/dL POC Glucose (mg/dL) (75-99) mg/dL Plasma Lactic Acid Severo 2.6 H* (0.7-2.0) mmol/L Uric Acid (3.7-7.4) mg/dL Calcium (8.4-10.2) mg/dL Iron (50-170) ug/dL % Saturation (12.00-45.00) Ferritin (10.0-291.0) ng/mL Lactate Dehydrogenase (313-618) U/L Microbiology - Last 24 Hours (Table) 09/24/19 21:10 Gram Stain - Preliminary Hip - Right Wound Culture - Preliminary 09/24/19 21:10 Gram Stain - Preliminary Other - Other Wound Culture - Preliminary 09/24/19 21:10 Anaerobic Culture - Preliminary Hip - Right 09/24/19 21:10 Anaerobic Culture - Preliminary Coccyx Assessment and Plan (1) History of breast cancer Current Visit: Yes Status: Acute Code(s): Z85.3 - PERSONAL HISTORY OF MALIGNANT NEOPLASM OF BREAST SNOMED Code(s): 251331228 (2) Retroperitoneal lymphadenopathy Current Visit: Yes Status: Acute Code(s): R59.0 - LOCALIZED ENLARGED LYMPH NODES SNOMED Code(s): 773175886 Plan: Assessment and recommendations: 1. Diffuse Adenopathy: - Patient initially seen in June at [facility] for abdominal pain, underwent CT scans revealing diffuse adenopathy. - In july had FNA lymph node inconclusive, will need surgical excisional lymph node biopsy as a differential includes lymphoma. therefore flow cytometry for B and T cells will also need to be sent. - She does have a history of Breast Cancer in 2006, she was unable to give much history of this. Will check tumor markers 2. Left hip incision wound draining, probable infection: - Recent hip surgery in August, further details unknown - Antibiotics per primary team - Elevated lactic acid: blood cultures pending 3. Renal Insufficiency: Acute Renal Failure, new - Nephrology Following - Check Uric acid and LDH 4. Acute Hypoxic Respiratory Failure: - Now on 6L - 96% - Secondary to pulmonary nodules versus other - Pulm is following, unable to utilize contrasted CT secondary to Renal Function - May need VQ scan to evaluate for PE 5. LLE Swelling: - Maybe secondary to left hip surgery will order doppler to assess for DVT, also will assess RUE 6. Normocytic Anemia: - Iron Studies, hemolysis, work-up in progress - Monitor CBC 7. Mild Coagulopathy: - Prolonged INR, PT, PTT - Eliquis at home, delayed excretion (?) - Recheck coags today 8. Elevated Uric Acid: - Likely secondary to Tumor Lysis with a picture resembling lymphoma - Will need pathology confirmation 9. Hypotension: - Per Primary Team 10. History Breast Cancer: 2006: - Tumor markers neg, picture not consistent with metastatic breast cancer Plan: 09/25/19 - Attempted to call daughter Earline twice to discuss treatment goals, message left - Treatment with IV hydration and for TLS - Treatment per ID for possible secondary infection (hip wound culture, BC, and Urine pending) - Once stable plan for excisional lymph node biopsy, inguinal palpable. Will need flow cytometry for B and T cells on path. - Await recheck coags - Await Dopplers BLE and RUE Physician Attest: I have completed the full history and physical and agree with above dictation, dictated as a scribe
--- NOTE | 2019-09-25 19:16 | CONS ---
CONSULTATION REASON FOR CONSULT: Renal failure. HISTORY OF PRESENT ILLNESS: Patient is a 69-year-old female who was admitted to the hospital with a low blood pressure, extreme weakness, mental status changes, inability to stand from rehab unit. Patient is status post right hip hemiarthroplasty on August 25 at [facility] and was discharged to [facility]. She has had discharge from the incision site. She did have a fever as well. The patient was found to have an elevated lactic acid level at 4.0. Systolic blood pressure was not low as 87 mmHg. Serum creatinine was 2.57. She is currently in the ICU. She has received multiple fluid boluses. Patient also has a history of breast cancer and has been noticed to have significant lymphadenopathy, intraabdominal and mediastinal, as well as left cervical lymph nodes which are enlarged. She is being followed by Oncology and there are plans for biopsy of the lymph nodes. No prior history of kidney diseases. The patient was not on any nonsteroidal anti-inflammatory agents prior to admission. PAST MEDICAL HISTORY: Significant for history of breast cancer status post bilateral mastectomies, severe COPD, chronic hypoxic respiratory failure, history of pulmonary nodules, mediastinal adenopathy noted recently, atrial fibrillation, hypertension, type 2 diabetes, hyperlipidemia, generalized anxiety disorder, osteoarthritis. PAST SURGICAL HISTORY: Recent left hip hemiarthroplasty August 25 at [facility], bilateral mastectomy 2006, cholecystectomy. SOCIAL HISTORY: Patient is a current everyday smoker, half a pack per day. No history of alcohol or other drug abuse. MEDICATIONS: Medications prior to admission included Eliquis, Lipitor, Celexa, insulin, Synthroid, Tylenol, Dulcolax, Colace, milk of magnesia, Toprol, Remeron, tramadol, nicotine patch. ALLERGIES: INCLUDE IV CONTRAST, AVELOX, PENICILLIN, WHICH CAUSES ANAPHYLAXIS AND IV DYE ALSO CAUSES ANAPHYLAXIS. REVIEW OF SYSTEMS: As per HPI. Other systems negative. PHYSICAL EXAMINATION: Patient is comfortable. She is awake, not in any acute distress. Somewhat confused. Blood pressure this morning was 101/53, heart rate 89 per minute, she is afebrile. Examination of the heart S1, S2. Examination of the lungs, decreased breath sounds at bases. Abdomen is soft, nontender. Examination of lower extremities shows edema 1+, mostly in the left leg. Cervical lymph nodes are palpable on the left side. SIGN WIRER exam shows patient is confused. She is moving all 4 extremities. LAB: Show hemoglobin 10.6, white cell count 14.4, platelet count of 542,000. Sodium 133, potassium 4.6, chloride 104, CO2 is 18, BUN 57, creatinine 2.82. Lactic acid is down to 2.6 from 4 initially. Previous creatinine was 0.8 on 09/13/2019. ASSESSMENT: 1. Acute kidney injury associated with hypotension hypoperfusion acute tubular necrosis, currently nonoliguric. The patient has not voided yet. However, if she does not void, Flores catheter will be placed. Continue with IV fluids. No nephrotoxic agents on board. If patient remains hypotensive, she will need pressors to be started. 2. History of breast cancer status post bilateral mastectomies 2006 followed by chemotherapy. 3. Significant mediastinal adenopathy and intraabdominal adenopathy with suspicion for metastatic disease currently being considered for lymph node biopsy. 4. Lactic acidosis associated with hypotension, rule out sepsis. 5. Metabolic acidosis non gap secondary to renal failure. 6. Atrial fibrillation with RVR currently off the Cardizem drip. 7. History of recent acute right hip fracture, status post right hemiarthroplasty on September 02 at [facility], perhaps some drainage noted from the incision. PLAN: Continue empiric antibiotics. Continue IV fluids repeat labs and repeat labs in a.m. MMODL / IJN: [id number] /
[2019-09-25] MEDS: MIRTAZAPINE 15 MG TAB PO SCH (20:40)
[2019-09-25] MEDS: ATORVASTATIN 10 MG TAB PO SCH (20:41)
[2019-09-26] MEDS ORDERED: BARIUM SULFATE 450 ML ORAL.SUSP BOTTLE PO PRN (01:06)
--- NOTE | 2019-09-26 01:06 | P.CONS ---
History of Present Illness - Reason for Consult Consult date: 09/25/19 leukocytosis and lactic acidosis Requesting physician: Kayleigh Easton - Chief Complaint weakness and abd pain x few days - History of Present Illness Patient is a 69-year-old female presenting to the ER at [facility] on 09/20/2019 with concern for dehydration patient complaining of decreased appetite and decreased oral intake and has been complaining of feeling fatigue no confusion no nausea no vomiting this patient did have history of breast and lung cancer also with a history of right hip fracture in August for the patient has had surgery done activities to hospital and subsequently has been at rehab on presentation to the hospital patient has been afebrile and no fever has been recorded subsequently patient did have a white count of 11.0 is u p to 14.4 today and also have elevated lactic acid 3.22.6 patient urine was negative: PCR was negative patient did have a chest x-ray which showed developing multiple pulmonary dose possibly from comparison to development of pleural effusion abdominal x-ray nonspecific bowel gas pattern patient has been treated with Rocephin 1 g daily with worsening of her white count and lactic acid infectious was consulted for further management there is also question of some serous drainage from her right hip incision site the patient do not have any specific symptoms referable to it as far as pain is concerned and no purulence has been noticed, patient overall is not a very good historian so most information has been extracted from review the chart and talking to nursing staff Review of Systems Positive point has been mentioned in HPI complete review could not be obtained because of underlying mental status Past Medical History Past Medical History: COPD Additional Past Medical History / Comment(s): breast and lung cancer Last Myocardial Infarction Date:: unknown History of Any Multi-Drug Resistant Organisms: None Reported Past Surgical History: Breast Surgery, Cholecystectomy Past Anesthesia/Blood Transfusion Reactions: No Reported Reaction Past Psychological History: No Psychological Hx Reported Smoking Status: Current every day smoker Past Alcohol Use History: None Reported Additional Past Alcohol Use History / Comment(s): Patient is a smoker of 2 packs per day for 45 years, currently at a half a pack per day. She denies any alcohol use, marijuana, street drug use. Past Drug Use History: None Reported - Past Family History Father Additional Family Medical History / Comment(s): Patient states that she does not remember her mother or father's medical history, cause of . Brother(s) Additional Family Medical History / Comment(s): Patient states that she has 4 or 5 siblings and one half brother had lung cancer. Patient has 2 daughters which she reports is having no major medical problems. Medications and Allergies Home Medications Medication Instructions Recorded Confirmed Type Apixaban [Eliquis] 5 mg PO BID@0800,1700 08/11/19 09/23/19 History Atorvastatin Calcium [Lipitor] 10 mg PO HS@2100 08/11/19 09/23/19 History Citalopram Hydrobromide [CeleXA] 20 mg PO DAILY@0800 08/11/19 09/23/19 History Insulin NPH Hum/Reg Insulin Hm 5 units SQ BID@0800,17008/11/19 09/23/19 History [Novolin 70-30 Flexpen] Isosorbide Mononitrate [Isosorbide 30 mg PO DAILY@0800 08/11/19 09/23/19 History Mononitrate ER] Thyroid,Pork [[place] Thyroid] 180 mg PO DAILY@0600 08/11/19 09/23/19 History metFORMIN HCL 1,000 mg PO BID@0800,1700 08/11/19 09/23/19 History Acetaminophen [Tylenol] 650 mg PO Q4H PRN 09/23/19 09/23/19 History Bisacodyl [Dulcolax] 10 mg RECTAL DAILY PRN 09/23/19 09/23/19 History Docusate [Colace] 100 mg PO BID@0800,1700 09/23/19 09/23/19 History HYDROcodone/APAP 10-325MG [[place] 1 tab PO Q6HR PRN 09/23/19 09/23/19 History 10-325] Loperamide HCl [Imodium A-D] 2 - 4 mg PO DIRECTED PRN 09/23/19 09/23/19 History Magic Cup 1 can PO TID@0800,1200,1700 09/23/19 09/23/19 History Magnesium Hydroxide [Milk of 2,400 mg PO DAILY PRN 09/23/19 09/23/19 History Magnesia] Metoprolol Succinate [Toprol XL] 25 mg PO DAILY@0800 09/23/19 09/23/19 History Mirtazapine [Remeron] 15 mg PO HS@2100 09/23/19 09/23/19 History Na Phos,M-B/Na Phos,Di-Ba [Fleet 133 ml RECTAL DAILY PRN 09/23/19 09/23/19 History Adult] Nicotine 14Mg/24Hr Patch [Habitrol 1 patch TRANSDERM DAILY@0800 09/23/19 09/23/19 History 14Mg/24Hr Patch] traMADol HCL 50 mg PO Q6H PRN 09/23/19 09/23/19 History Allergies Allergy/AdvReac Type Severity Reaction Status Date / Time Iodinated Contrast Media Allergy Anaphylaxis Verified 09/23/19 22:45 moxifloxacin [From Avelox] Allergy Unknown Verified 09/23/19 22:45 Penicillins Allergy Anaphylaxis Verified 09/23/19 22:45 Physical Exam Vitals: Vital Signs Temp Pulse Pulse Resp BP BP Pulse Ox 09/25/19 11:00 89 20 101/53 09/25/19 10:30 91 22 101/53 09/25/19 10:00 85 20 87/52 09/25/19 09:30 93 20 87/52 09/25/19 09:00 92 19 79/50 09/25/19 08:30 96 20 80/56 96 09/25/19 08:00 97.9 F 108 H 20 80/50 09/25/19 07:30 108 H 19 86/56 09/25/19 06:21 112/65 93 L 09/25/19 06:08 109 H 94/59 92 L 09/25/19 04:44 98.1 F 96 20 95/59 93 L 09/24/19 21:00 98 F 86 20 108/67 92 L 09/24/19 19:41 98.4 F 94 24 109/65 91 L 09/24/19 14:52 89 20 94/53 96 Intake and Output 09/24/19 09/25/19 09/25/19 22:59 06:59 14:59 Output Total 304 Balance -304 Output: Post Void Residual 304 Other: Voiding Method Diaper # Voids 1 2 Weight 89 kg GENERAL DESCRIPTION: Elderly female lying in bed, no distress. No tachypnea or accessory muscle of respiration use. HEENT: Shows Pallor , no scleral icterus. Oral mucous membrane is dry. NECK: Trachea central, no thyromegaly. LUNGS: Unlabored breathing. Clear to auscultation anteriorly. No wheeze or crackle. HEART: S1, S2, regular rate and rhythm. ABDOMEN: Soft, right-sided tenderness , no guarding or rigidity EXTREMITIES: Right hip incision site with no redness no purulent drainage there is a very small pinhole wound with surrounding inflammatory changes SKIN: No rash, no masses palpable. NEUROLOGICAL: The patient is awake, alert, oriented x2, mood and affect normal. Results CBC & Chem 7: 09/25/19 06:59 09/25/19 06:59 Labs: Abnormal Lab Results - Last 24 Hours (Table) 09/24/19 09/24/19 09/24/19 Range/Units 15:16 18:18 18:18 WBC (3.8-10.6) k/uL Hgb (11.4-16.0) gm/dL MCHC (31.0-37.0) g/dL RDW (11.5-15.5) % Plt Count (150-450) k/uL Neutrophils # (1.3-7.7) k/uL Lymphocytes # (1.0-4.8) k/uL Retic Count (0.5-2.0) % PT 20.7 H (9.0-12.0) sec INR 2.1 H (<1.2) APTT 32.9 H (22.0-30.0) sec Sodium (137-145) mmol/L Carbon Dioxide (22-30) mmol/L BUN (7-17) mg/dL Creatinine (0.52-1.04) mg/dL POC Glucose (mg/dL) (75-99) mg/dL Plasma Lactic Acid Severo 2.5 H* (0.7-2.0) mmol/L Uric Acid 14.2 H (3.7-7.4) mg/dL Calcium (8.4-10.2) mg/dL Iron 20 L (50-170) ug/dL % Saturation 8.77 L (12.00-45.00) Ferritin 496.2 H (10.0-291.0) ng/mL Lactate Dehydrogenase 2132 H (313-618) U/L 09/24/19 09/24/19 09/24/19 Range/Units 18:18 18:18 18:45 WBC (3.8-10.6) k/uL Hgb (11.4-16.0) gm/dL MCHC (31.0-37.0) g/dL RDW (11.5-15.5) % Plt Count (150-450) k/uL Neutrophils # (1.3-7.7) k/uL Lymphocytes # (1.0-4.8) k/uL Retic Count 3.0 H (0.5-2.0) % PT (9.0-12.0) sec INR (<1.2) APTT (22.0-30.0) sec Sodium (137-145) mmol/L Carbon Dioxide (22-30) mmol/L BUN (7-17) mg/dL Creatinine (0.52-1.04) mg/dL POC Glucose (mg/dL) (75-99) mg/dL Plasma Lactic Acid Severo 2.7 H* (0.7-2.0) mmol/L Uric Acid (3.7-7.4) mg/dL Calcium (8.4-10.2) mg/dL Iron 19 L (50-170) ug/dL % Saturation (12.00-45.00) Ferritin (10.0-291.0) ng/mL Lactate Dehydrogenase (313-618) U/L 09/24/19 09/25/19 09/25/19 Range/Units 23:03 00:06 02:42 WBC (3.8-10.6) k/uL Hgb (11.4-16.0) gm/dL MCHC (31.0-37.0) g/dL RDW (11.5-15.5) % Plt Count (150-450) k/uL Neutrophils # (1.3-7.7) k/uL Lymphocytes # (1.0-4.8) k/uL Retic Count (0.5-2.0) % PT (9.0-12.0) sec INR (<1.2) APTT (22.0-30.0) sec Sodium (137-145) mmol/L Carbon Dioxide (22-30) mmol/L BUN (7-17) mg/dL Creatinine (0.52-1.04) mg/dL POC Glucose (mg/dL) 103 H (75-99) mg/dL Plasma Lactic Acid Severo 2.6 H* 2.5 H* (0.7-2.0) mmol/L Uric Acid (3.7-7.4) mg/dL Calcium (8.4-10.2) mg/dL Iron (50-170) ug/dL % Saturation (12.00-45.00) Ferritin (10.0-291.0) ng/mL Lactate Dehydrogenase (313-618) U/L 09/25/19 09/25/19 09/25/19 Range/Units 06:55 06:59 06:59 WBC 14.4 H (3.8-10.6) k/uL Hgb 10.6 L (11.4-16.0) gm/dL MCHC 29.7 L (31.0-37.0) g/dL RDW 18.2 H (11.5-15.5) % Plt Count 542 H (150-450) k/uL Neutrophils # 13.3 H (1.3-7.7) k/uL Lymphocytes # 0.3 L (1.0-4.8) k/uL Retic Count (0.5-2.0) % PT (9.0-12.0) sec INR (<1.2) APTT (22.0-30.0) sec Sodium 133 L (137-145) mmol/L Carbon Dioxide 18 L (22-30) mmol/L BUN 57 H (7-17) mg/dL Creatinine 2.82 H (0.52-1.04) mg/dL POC Glucose (mg/dL) (75-99) mg/dL Plasma Lactic Acid Severo 3.2 H* (0.7-2.0) mmol/L Uric Acid (3.7-7.4) mg/dL Calcium 7.9 L (8.4-10.2) mg/dL Iron (50-170) ug/dL % Saturation (12.00-45.00) Ferritin (10.0-291.0) ng/mL Lactate Dehydrogenase (313-618) U/L 09/25/19 09/25/19 Range/Units 09:56 11:24 WBC (3.8-10.6) k/uL Hgb (11.4-16.0) gm/dL MCHC (31.0-37.0) g/dL RDW (11.5-15.5) % Plt Count (150-450) k/uL Neutrophils # (1.3-7.7) k/uL Lymphocytes # (1.0-4.8) k/uL Retic Count (0.5-2.0) % PT 21.4 H (9.0-12.0) sec INR 2.2 H (<1.2) APTT 39.2 H (22.0-30.0) sec Sodium (137-145) mmol/L Carbon Dioxide (22-30) mmol/L BUN (7-17) mg/dL Creatinine (0.52-1.04) mg/dL POC Glucose (mg/dL) (75-99) mg/dL Plasma Lactic Acid Severo 2.6 H* (0.7-2.0) mmol/L Uric Acid (3.7-7.4) mg/dL Calcium (8.4-10.2) mg/dL Iron (50-170) ug/dL % Saturation (12.00-45.00) Ferritin (10.0-291.0) ng/mL Lactate Dehydrogenase (313-618) U/L Microbiology - Last 24 Hours (Table) 09/24/19 21:10 Gram Stain - Preliminary Hip - Right Wound Culture - Preliminary 09/24/19 21:10 Gram Stain - Preliminary Other - Other Wound Culture - Preliminary 09/24/19 21:10 Anaerobic Culture - Preliminary Hip - Right 09/24/19 21:10 Anaerobic Culture - Preliminary Coccyx Assessment and Plan Assessment: 1-patient is presented hospital with generalized symptom of her feeling well decreased oral intake and abdominal pain this patient was noticed to have right- sided abdominal tenderness on current examination with elevated white count and lactic acid possible intra-abdominal source and will need to cover for enteric gram-negative both aerobic and anaerobes 2-patient with a history of her right hip fracture with concern for a small pinhole wound at that site and some drainage but no inflammation was noticed or any purulent drainage observed 3-patient with a penicillin allergy that would limit the number of antibiotics safe to use (1) Leukocytosis Current Visit: Yes Status: Acute Code(s): D72.829 - ELEVATED WHITE BLOOD CELL COUNT, UNSPECIFIED SNOMED Code(s): 110694481 (2) Lactic acidosis Current Visit: Yes Status: Acute Code(s): E87.2 - ACIDOSIS SNOMED Code(s): 95274728 Plan: 1-we will obtain x-rays of the right hip area 2-obtain a CT abdominal pelvis with oral contrast 3-adjust antibiotic to cefepime 2 g every 12hr and Flagyl 4-gentle IV fluid We will follow on clinical condition and cultures to further adjust medication if needed Thank you for this consultation we will follow the patient along with you Time with Patient: Greater than 30
[2019-09-26] MEDS: metroNIDAZOLE-NS PMX 500 MG in SALINE 1 100ML.BAG IVPB SCH ×3 (01:18→18:13)
[2019-09-26] MEDS: HYDROcodone/APAP 10-325MG 1 EACH TAB PO PRN ×2 (05:49→11:55)
[2019-09-26] MEDS: THYROID, PORK 30 MG TAB PO SCH (05:50)
[2019-09-26 06:02] LABS: Anisocytosis Slight; Basophils % (A) 0 %; Eosinophils # (A) 0.1 k/uL (0-0.7); Eosinophils % (A) 1 %; HCT 30.9 % (34.0-46.0); HGB 9.5 gm/dL (11.4-16.0); Hypochromasia Marked; Lymphocytes # (A) 0.4 k/uL (1.0-4.8); Lymphocytes % (A) 3 %; MCH 27.9 pg (25.0-35.0); MCHC 30.7 g/dL (31.0-37.0); MCV 90.7 fL (80.0-100.0); Mean Platelet Volume 8.1; Monocytes # (A) 0.3 k/uL (0-1.0); Monocytes % (A) 3 %; Neutrophils # (A) 10.3 k/uL (1.3-7.7); Neutrophils % (A) 92 %; Platelet Count 457 k/uL (150-450); RBC 3.41 m/uL (3.80-5.40); RDW 18.8 % (11.5-15.5); WBC 11.2 k/uL (3.8-10.6)
[2019-09-26 06:09] LABS: INR 2.5 (<1.2); Prothrombin Time 24.3 sec (9.0-12.0)
[2019-09-26 06:18] LABS: Albumin 2.4 g/dL (3.5-5.0); Calcium 7.5 mg/dL (8.4-10.2); Potassium 4.6 mmol/L (3.5-5.1); Total Bilirubin 0.3 mg/dL (0.2-1.3); Total Protein 4.8 g/dL (6.3-8.2)
[2019-09-26 06:59] LABS: C Reactive Protein 213.3 mg/L (<10.0)
--- NOTE | 2019-09-26 08:09 | US ---
EXAMINATION TYPE: US venous doppler duplex UE RT DATE OF EXAM: 09/25/2019 COMPARISON: NONE CLINICAL HISTORY: swelling. SIDE PERFORMED: Right Multiple nodes noted throughout neck. Right Arm: negative for DVT as seen. Cephalic vein, Basilic vein and ulnar veins not seen. Patient unable to cooperate with examiner. Tech nically difficult and limited. Grayscale, color Doppler, spectral Doppler imaging performed of the deep veins of the right upper ext remity. Visualized portions of the right internal jugular vein, subclavian vein show normal color flow and va scular waveforms. Normal compression of the visualized portion of the right internal jugular vein. Ri ght axillary vein, brachial veins are also unremarkable. Radial veins are normal and compressible. IMPRESSION: No evident deep venous thrombosis in the right upper extremity
--- NOTE | 2019-09-26 08:11 | US ---
EXAMINATION TYPE: US venous doppler duplex LE DATE OF EXAM: 09/25/2019 4:44 PM COMPARISON: NONE CLINICAL HISTORY: Edema R60.0, R06.09. SIDE PERFORMED: Bilateral TECHNIQUE: The lower extremity deep venous system is examined utilizing real time linear array sonog rex with graded compression, doppler sonography and color-flow sonography. VESSELS IMAGED: External Iliac Vein (EIV) Common Femoral Vein Deep Femoral Vein Greater Saphenous Vein * Femoral Vein Popliteal Vein Small Saphenous Vein * Proximal Calf Veins (* superficial vessels) Technically difficult study, patient unable to cooperate with examiner. There is normal flow, compressibility, vascular waveforms. Right Leg: Negative for DVT Left Leg: Negative for DVT Multiple enlarged nodes seen in left groin. IMPRESSION: No evident deep venous arthrosis at or above the knees. Lymphadenopathy.
--- NOTE | 2019-09-26 08:19 | US ---
EXAMINATION TYPE: US renals and bladder DATE OF EXAM: 09/25/2019 COMPARISON: NONE CLINICAL HISTORY: swelling, acute renal failure. EXAM MEASUREMENTS: Right Kidney: 12.1 cm Left Kidney: 11.7 cm cm Right Kidney: Anechoic focus in the midpole shows increased through transmission and imperceptible wa ll and measures 2 cm in size. Questionable echogenic focus present at the lower pole measures 17 mm and is indeterminate Left Kidney: Cortical medullary differentiation maintained bilaterally. Bladder: Not seen There is no evidence for hydronephrosis at this point in time. No nephrolithiasis is seen. Incidenta l note of small amount of ascites. IMPRESSION: There is ascites. The bladder is not evaluated. Simple cyst midpole right kidney. Indeterminate focus noted at the lower pole the right kidney, alternate imaging can be performed for better evaluation. There is no hydronephrosis.
--- NOTE | 2019-09-26 08:29 | XR ---
Limited right hip HISTORY: Pain and drainage Single frontal view of the right hip Patient is status post right hip arthroplasty. There is anatomic alignment. No fracture or dislocatio n. Question soft tissue swelling. Bone mineralization is reduced. IMPRESSION: Suspect soft tissue swelling. Postop changes. Osteopenia.
[2019-09-26] MEDS ORDERED: CEFEPIME 2 GM in SODIUM CHLORIDE 0.9% 100 ML IVPB SCH (09:00)
--- NOTE | 2019-09-26 09:07 | XR ---
EXAMINATION TYPE: XR chest 1V portable DATE OF EXAM: 09/26/2019 COMPARISON: Prior chest x-ray 09/23/2019 HISTORY: Pleural effusions TECHNIQUE: Single frontal view of the chest is obtained. FINDINGS: Bilateral nodularity within the lungs persists. Port-A-Cath is again noted, distal tip the catheter not well seen. Heart size is likely stable. No evident pneumothorax. Obscured left hemidiap hragm, blunting left costophrenic angle, increased opacity at the left lung base persists. IMPRESSION: Findings are similar to prior exam. Metastatic disease.
[2019-09-26] MEDS: CITALOPRAM HYDROBROMIDE 20 MG TAB PO SCH (09:10)
[2019-09-26] MEDS: DOCUSATE 100 MG CAP PO SCH ×2 (09:10→16:37)
[2019-09-26] MEDS: PANTOPRAZOLE 40 MG/10 ML VIAL IV SCH (09:10)
[2019-09-26] MEDS: ISOSORBIDE MONONITRATE ER 30 MG TAB.ER.24H PO SCH (09:10)
[2019-09-26] MEDS: MIDODRINE 5 MG TAB PO SCH ×2 (09:10→20:58)
[2019-09-26] MEDS: METOPROLOL SUCCINATE (ER) 25 MG TAB.ER.24H PO SCH (09:10)
[2019-09-26 09:50] LABS: Glucose,Whole Blood 74 mg/dL (75-99)
[2019-09-26] MEDS: INSULN ASP PRT/INSULIN ASPART 100 UNIT/ML 10 ML VIAL SQ SCH ×2 (10:00→18:12)
[2019-09-26] MEDS: NICOTINE 14MG/24HR PATCH TRANSDERM SCH (10:01)
--- NOTE | 2019-09-26 10:05 | CT ---
EXAMINATION TYPE: CT abdomen pelvis wo con DATE OF EXAM: 09/26/2019 COMPARISON: None HISTORY: abdominal pain CT DLP: 837.2 mGycm Examination of the solid and hollow viscera is limited given the lack of contrast. Unenhanced CT is p erformed of the abdomen and pelvis. FINDINGS: LUNG BASES: Left lower lobe collapse with a moderate pleural effusion. Smaller right-sided pleural ef fusion. Multiple pulmonary nodules consistent with metastatic disease. LIVER/GB: Small amount of fluid adjacent to the liver. Several subcentimeter hypoattenuating lesions. Metastatic disease is difficult to exclude. The gallbladder is surgically absent. PANCREAS: No pancreatic mass identified. No inflammatory process seen. SPLEEN: No evidence for splenomegaly. No intrasplenic lesions seen. ADRENALS: No adrenal nodules identified. No evidence for thickening. KIDNEYS: Hypoattenuating renal lesions identified. No nephrolithiasis. No hydronephrosis. BOWEL: No evidence of bowel obstruction. No inflammatory process. Lymph nodes: There is periaortic adenopathy noted measuring 4.6 cm AP dimension. There is also retroc aval adenopathy and aortoenteric caval adenopathy. There is retrocrural adenopathy noted. There is il iac chain adenopathy measuring 3.2 cm on the left and approximately 1.7 cm on the right. Adenopathy p ersists into the external iliac chain lymph node mass on the left measuring conglomerate 6 cm. On the right there are 2 enlarged lymph nodes noted measuring up to 2 cm. There is right inguinal adenopath y measuring 4.6 cm additional enlarged lymph nodes are noted on the left the largest inguinal lymph n ode measures 3 cm. Abdominal aorta: Atheromatous changes seen. No evidence for aneurysm. Genital organs: No significant abnormality. Other: Right hip prosthesis. Severe degenerative change L5-S1. IMPRESSION: 1. Multiple metastatic nodules at the lung bases with left lower lobe collapse and pleural effusions. 2. Retroperitoneal adenopathy as discussed. Bilateral inguinal adenopathy. 3. Small hepatic lesions difficult to exclude on unenhanced evaluation. 4. Small amount of ascites.
--- NOTE | 2019-09-26 11:01 | P.PN ---
<Cherie Morales Danisha - Last Filed: 09/26/19 11:01> Subjective Progress Note Date: 09/26/19 CHIEF COMPLAINT: Lymphadenopathy HISTORY OF PRESENT ILLNESS: 69-year-old female currently admitted to the hospital for workup of adenopathy. Patient was scheduled for excisional lymph node biopsy today with Dr. Grider. However patient's INR is elevated this morning at 2.5. PHYSICAL EXAM: VITAL SIGNS: Reviewed. GENERAL: Well-developed in no acute distress. HEENT: No sclera icterus. Extraocular movements grossly intact. Moist buccal mucosa. Head is atraumatic, normocephalic. ABDOMEN: Soft. Nondistended. Nontender. NEUROLOGIC: Alert and oriented. Cranial nerves II through XII grossly intact. ASSESSMENT: 1. Diffuse lymphadenopathy PLAN: -Excisional lymph node biopsy canceled for today second to elevated INR -Treatment of coagulopathy per hematology -May resume diet. Nothing by mouth at midnight -Patient will be rescheduled for excisional lymph node biopsy tomorrow pending correction of coagulopathy Nurse practitioner note has been reviewed by physician. Signing provider agrees with the documented findings, assessment, and plan of care. Objective - Vital Signs Vital signs: Vital Signs Temp 98.2 F 09/26/19 00:00 Pulse 92 09/26/19 00:00 Resp 21 09/26/19 00:00 BP 115/64 09/26/19 00:00 Pulse Ox 94 L 09/26/19 00:00 Intake & Output 09/25/19 09/26/19 09/26/19 18:59 06:59 18:59 Intake Total 850 1700 Balance 850 1700 Weight 93.1 kg Intake: IV 850 1600 Rasburicase 6 mg In 50 Sodium Chloride 0.9% 46 ml @ 100 mls/hr IV ONCE ONE Rx#:[id number] Sodium Chloride 0.9% 1, 800 1600 000 ml @ 100 mls/hr IV . Q10H [facility] Rx#:[id number] Intake, IV Titration 100 Amount metroNIDAZOLE-NS PMX 500 100 mg In Saline 1 100ml.bag @ 100 mls/hr IVPB Q8H [facility] Rx#:[id number] Other: Voiding Method Diaper Diaper # Voids 1 1 - Labs CBC & Chem 7: 09/26/19 05:31 09/26/19 05:31 Labs: Abnormal Lab Results - Last 24 Hours (Table) 09/24/19 09/25/19 09/25/19 Range/Units 18:18 09:56 11:24 WBC (3.8-10.6) k/uL RBC (3.80-5.40) m/uL Hgb (11.4-16.0) gm/dL Hct (34.0-46.0) % MCHC (31.0-37.0) g/dL RDW (11.5-15.5) % Plt Count (150-450) k/uL Neutrophils # (1.3-7.7) k/uL Lymphocytes # (1.0-4.8) k/uL PT 21.4 H (9.0-12.0) sec INR 2.2 H (<1.2) APTT 39.2 H (22.0-30.0) sec Sodium (137-145) mmol/L Carbon Dioxide (22-30) mmol/L BUN (7-17) mg/dL Creatinine (0.52-1.04) mg/dL Glucose (74-99) mg/dL POC Glucose (mg/dL) (75-99) mg/dL Plasma Lactic Acid Severo 2.6 H* (0.7-2.0) mmol/L Calcium (8.4-10.2) mg/dL Iron 20 L (50-170) ug/dL % Saturation 8.77 L (12.00-45.00) Ferritin 496.2 H (10.0-291.0) ng/mL AST (14-36) U/L ALT (4-34) U/L Alkaline Phosphatase (38-126) U/L C-Reactive Protein (<10.0) mg/L Total Protein (6.3-8.2) g/dL Albumin (3.5-5.0) g/dL 09/26/19 09/26/19 09/26/19 Range/Units 05:31 05:31 05:31 WBC 11.2 H (3.8-10.6) k/uL RBC 3.41 L (3.80-5.40) m/uL Hgb 9.5 L (11.4-16.0) gm/dL Hct 30.9 L (34.0-46.0) % MCHC 30.7 L (31.0-37.0) g/dL RDW 18.8 H (11.5-15.5) % Plt Count 457 H (150-450) k/uL Neutrophils # 10.3 H (1.3-7.7) k/uL Lymphocytes # 0.4 L (1.0-4.8) k/uL PT 24.3 H (9.0-12.0) sec INR 2.5 H (<1.2) APTT (22.0-30.0) sec Sodium 134 L (137-145) mmol/L Carbon Dioxide 18 L (22-30) mmol/L BUN 62 H (7-17) mg/dL Creatinine 3.02 H (0.52-1.04) mg/dL Glucose 62 L (74-99) mg/dL POC Glucose (mg/dL) (75-99) mg/dL Plasma Lactic Acid Severo (0.7-2.0) mmol/L Calcium 7.5 L (8.4-10.2) mg/dL Iron (50-170) ug/dL % Saturation (12.00-45.00) Ferritin (10.0-291.0) ng/mL AST 114 H (14-36) U/L ALT 39 H (4-34) U/L Alkaline Phosphatase 261 H (38-126) U/L C-Reactive Protein 213.3 H (<10.0) mg/L Total Protein 4.8 L (6.3-8.2) g/dL Albumin 2.4 L (3.5-5.0) g/dL 09/26/19 09/26/19 Range/Units 05:31 09:49 WBC (3.8-10.6) k/uL RBC (3.80-5.40) m/uL Hgb (11.4-16.0) gm/dL Hct (34.0-46.0) % MCHC (31.0-37.0) g/dL RDW (11.5-15.5) % Plt Count (150-450) k/uL Neutrophils # (1.3-7.7) k/uL Lymphocytes # (1.0-4.8) k/uL PT (9.0-12.0) sec INR (<1.2) APTT (22.0-30.0) sec Sodium (137-145) mmol/L Carbon Dioxide (22-30) mmol/L BUN (7-17) mg/dL Creatinine (0.52-1.04) mg/dL Glucose (74-99) mg/dL POC Glucose (mg/dL) 74 L (75-99) mg/dL Plasma Lactic Acid Severo 2.2 H* (0.7-2.0) mmol/L Calcium (8.4-10.2) mg/dL Iron (50-170) ug/dL % Saturation (12.00-45.00) Ferritin (10.0-291.0) ng/mL AST (14-36) U/L ALT (4-34) U/L Alkaline Phosphatase (38-126) U/L C-Reactive Protein (<10.0) mg/L Total Protein (6.3-8.2) g/dL Albumin (3.5-5.0) g/dL Microbiology - Last 24 Hours (Table) 09/24/19 21:10 Gram Stain - Preliminary Other - Other Wound Culture - Preliminary Group D Enterococcus 09/24/19 18:18 Blood Culture - Preliminary Blood No Growth after 24 hours 09/24/19 21:10 Gram Stain - Preliminary Hip - Right Wound Culture - Preliminary <Jerome Grider - Last Filed: 09/26/19 13:53> Subjective As above. Lymph node biopsy canceled today given the elevated INR. Case discussed with medicine, pulmonary, and oncology. Plans are currently underway for discharge to hospice. Further workup held at this point. We will sign off. Please call if needed. Objective - Vital Signs Vital signs: Vital Signs Temp 98.0 F 09/26/19 08:00 Pulse 98 09/26/19 08:00 Resp 23 09/26/19 08:00 BP 102/62 09/26/19 08:00 Pulse Ox 94 L 09/26/19 08:00 Intake & Output 09/25/19 09/26/19 09/26/19 18:59 06:59 18:59 Intake Total 850 1700 Balance 850 1700 Weight 93.1 kg Intake: IV 850 1600 Rasburicase 6 mg In 50 Sodium Chloride 0.9% 46 ml @ 100 mls/hr IV ONCE ONE Rx#:[id number] Sodium Chloride 0.9% 1, 800 1600 000 ml @ 100 mls/hr IV . Q10H [facility] Rx#:[id number] Intake, IV Titration 100 Amount metroNIDAZOLE-NS PMX 500 100 mg In Saline 1 100ml.bag @ 100 mls/hr IVPB Q8H [facility] Rx#:[id number] Other: Voiding Method Diaper Diaper Diaper # Voids 1 1 - Labs CBC & Chem 7: 09/26/19 05:31 09/26/19 05:31 Labs: Abnormal Lab Results - Last 24 Hours (Table) 09/26/19 09/26/19 09/26/19 Range/Units 05:31 05:31 05:31 WBC 11.2 H (3.8-10.6) k/uL RBC 3.41 L (3.80-5.40) m/uL Hgb 9.5 L (11.4-16.0) gm/dL Hct 30.9 L (34.0-46.0) % MCHC 30.7 L (31.0-37.0) g/dL RDW 18.8 H (11.5-15.5) % Plt Count 457 H (150-450) k/uL Neutrophils # 10.3 H (1.3-7.7) k/uL Lymphocytes # 0.4 L (1.0-4.8) k/uL PT 24.3 H (9.0-12.0) sec INR 2.5 H (<1.2) Sodium 134 L (137-145) mmol/L Carbon Dioxide 18 L (22-30) mmol/L BUN 62 H (7-17) mg/dL Creatinine 3.02 H (0.52-1.04) mg/dL Glucose 62 L (74-99) mg/dL POC Glucose (mg/dL) (75-99) mg/dL Plasma Lactic Acid Severo (0.7-2.0) mmol/L Calcium 7.5 L (8.4-10.2) mg/dL AST 114 H (14-36) U/L ALT 39 H (4-34) U/L Alkaline Phosphatase 261 H (38-126) U/L C-Reactive Protein 213.3 H (<10.0) mg/L Total Protein 4.8 L (6.3-8.2) g/dL Albumin 2.4 L (3.5-5.0) g/dL 09/26/19 09/26/19 09/26/19 Range/Units 05:31 09:49 10:11 WBC (3.8-10.6) k/uL RBC (3.80-5.40) m/uL Hgb (11.4-16.0) gm/dL Hct (34.0-46.0) % MCHC (31.0-37.0) g/dL RDW (11.5-15.5) % Plt Count (150-450) k/uL Neutrophils # (1.3-7.7) k/uL Lymphocytes # (1.0-4.8) k/uL PT (9.0-12.0) sec INR (<1.2) Sodium (137-145) mmol/L Carbon Dioxide (22-30) mmol/L BUN (7-17) mg/dL Creatinine (0.52-1.04) mg/dL Glucose (74-99) mg/dL POC Glucose (mg/dL) 74 L (75-99) mg/dL Plasma Lactic Acid Severo 2.2 H* 2.2 H* (0.7-2.0) mmol/L Calcium (8.4-10.2) mg/dL AST (14-36) U/L ALT (4-34) U/L Alkaline Phosphatase (38-126) U/L C-Reactive Protein (<10.0) mg/L Total Protein (6.3-8.2) g/dL Albumin (3.5-5.0) g/dL Microbiology - Last 24 Hours (Table) 09/24/19 21:10 Gram Stain - Preliminary Other - Other Wound Culture - Preliminary Group D Enterococcus 09/24/19 18:18 Blood Culture - Preliminary Blood No Growth after 24 hours 09/24/19 21:10 Gram Stain - Preliminary Hip - Right Wound Culture - Preliminary Assessment and Plan (1) Diffuse lymphadenopathy Current Visit: Yes Status: Acute Code(s): R59.1 - GENERALIZED ENLARGED LYMPH NODES SNOMED Code(s): 787372119
--- NOTE | 2019-09-26 11:09 | ECHOF ---
Referral Reason:a fib MEASUREMENTS -------- HEIGHT: 177.8 cm WEIGHT: 88.9 kg BP: 101/53 RVIDd: 3.3 cm (< 3.3) IVSd: 1.3 cm (0.6 - 1.1) LVIDd: 3.7 cm (3.9 - 5.3) LVPWd: 1.2 cm (0.6 - 1.1) IVSs: 1.6 cm LVIDs: 2.6 cm LVPWs: 1.5 cm LA Diam: 3.5 cm (2.7 - 3.8) LAESV Index (A-L): 18.91 ml/m Ao Diam: 2.8 cm (2.0 - 3.7) AV Cusp: 2.0 cm (1.5 - 2.6) MV EXCURSION: 20.824 mm (> 18.000) MV EF SLOPE: 41 mm/s (70 - 150) EPSS: 0.6 cm MV E David: 1.27 m/s MV DecT: 222 ms MV A David: 1.35 m/s MV E/A Ratio: 0.94 RAP: 5.00 mmHg RVSP: 44.45 mmHg FINDINGS -------- Sinus rhythm. This was a technically good study. The left ventricular size is normal. There is mild concentric left ventricular hypertrophy. Overa ll left ventricular systolic function is normal with, an EF between 60 - 65 %. The right ventricle is mildly enlarged. Normal LA size by volume 22+/-6 ml/m2. The right atrium is normal in size. Interatrial and interventricular septum intact. There is mild aortic valve sclerosis. The mitral valve leaflets are mildly thickened. Mild mitral annular calcification present. Mild tricuspid regurgitation present. There is mild pulmonary hypertension. The right ventricular systolic pressure, as measured by Doppler, is 44.45mmHg. Trace/mild (physiologic) pulmonic regurgitation. The aortic root size is normal. Normal inferior vena cava with normal inspiratory collapse consistent with estimated right atrial pre ssure of 5 mmHg. There is no pericardial effusion. CONCLUSIONS -------- 1. Sinus rhythm. 2. This was a technically good study. 3. The left ventricular size is normal. 4. There is mild concentric left ventricular hypertrophy. 5. Overall left ventricular systolic function is normal with, an EF between 60 - 65 %. 6. The right ventricle is mildly enlarged. 7. Normal LA size by volume 22+/-6 ml/m2. 8. The right atrium is normal in size. 9. Interatrial and interventricular septum intact. 10. There is mild aortic valve sclerosis. 11. The mitral valve leaflets are mildly thickened. 12. Mild mitral annular calcification present. 13. Mild tricuspid regurgitation present. 14. There is mild pulmonary hypertension. 15. The right ventricular systolic pressure, as measured by Doppler, is 44.45mmHg. 16. Trace/mild (physiologic) pulmonic regurgitation. 17. The aortic root size is normal. 18. Normal inferior vena cava with normal inspiratory collapse consistent with estimated right atrial pressure of 5 mmHg. 19. There is no pericardial effusion. MAILROOM CLERK: Laura Melara RDCS
[2019-09-26] MEDS ORDERED: PHYTONADIONE 10 MG in SODIUM CHLORIDE 0.9% 50 ML IVPB STA (11:40)
[2019-09-26] MEDS: CEFEPIME 2 GM in SODIUM CHLORIDE 0.9% 100 ML IVPB SCH (11:45)
--- NOTE | 2019-09-26 12:26 | P.PN ---
Subjective Progress Note Date: 09/26/19 Principal diagnosis: Acute dehydration, acute on chronic hypoxic respiratory failure secondary to COPD, metastatic nodules involving both lungs, and left pleural effusion. This is a 69-year-old female patient who follows with Dr. Nuñez as her primary care provider. She has a history of diabetes mellitus, hypertension, hyperlipidemia, hypothyroidism, atrial fibrillation anticoagulated with Eliquis, coronary artery disease with previous MD, breast cancer with bilateral mast ectomies in 2006. She also is known to have multiple pulmonary nodules, mediastinal adenopathy, abdominal lymphadenopathy. She had been seen by our group including Dr. De La Vega at one point in August 2019 and again later that same month by Dr. Dominguez at [facility] after sustaining a hip fracture with surgical repair and subsequent transfer to [facility] for rehabilitation. Apparently she had done at [facility] prior to that. The details of which were unclear. The patient was quite confused as to whether or not she had any previous lung biopsy there as well. She was brought here to the emergency room last evening with concerns regarding dehydration. She had had a poor appetite and decreased oral intake while recovering in [facility]. She is seen today in consultation in the emergency room. She is currently awake and alert but somewhat confused to time and place. She is having some abdominal discomfort. Abdominal x-ray was nonspecific. Chest x-ray shows multiple pulmonary nodules worsening in comparison to 08/11/2019 and a small to moderate left pleural effusion. White count 12.0. Hemoglobin 9.3. Sodium 136. Potassium 4.4. BUN 56. Creatinine 2.51. Lactic acid 3.1. AST 73. ALT 26. Urine with moderate bacteria. CoVID 19 screen pending. Patient was reevaluated today on 09/25/19, patient was transferred to the ICU as a selective overflow because she developed atrial fibrillation with RVR while on the medical floor. Patient was seen by cardiology, placed on Cardizem drip, and she is now on Cardizem at 5 mg per hour. Patient is now in sinus rhythm, rate is 93/m. The patient is requesting to be sent home, patient is a bit confused, and after reviewing her overall status, I honestly believe the patient should be sent home with hospice. However she was seen by other consultants/including oncology, and now the recommendation is to proceed with lymph node biopsy from the right groin although the patient is not in any shape for any chemotherapy considering her overall clinical status. Patient also has multiple pulmonary nodules these are felt to be metastatic nodules most likely from breast cancer and she may have underlying lymphoma. CBC today is relatively unremarkable, her BUN is 57 creatinine 2.82, lactic acid is 2.6. No documented fever since admission, however I will recommend culturing the fluid from her hip. Since she has some ongoing drainage at the surgical site. Reevaluated today on 09/26/19, patient is basically about the same, intermittent episodes of confusion, patient was supposed to have inguinal lymph node biopsy today, however her INR was noted to be elevated at 2.5. This has been canceled, and my understanding that the patient is going to be a hospice patient at home. I was planning to consider left-sided thoracentesis, but considering the patient is being considered for hospice, I will canceled plans for left sided thoracentesis. Patient was seen by infectious disease, and she had positive culture for group D enterococcus from the drainage of her right hip. Infectious disease is addressing her antibiotic, presently on cefepime and Flagyl, may have to consider vancomycin since the patient is ALLERGIC to penicillin. Her IV fluid is at 100 mL per hour, she is on 6 L via nasal cannula, O2 saturations 94%. Patient remains as an overflow in the ICU. Chest x-ray CT of the abdomen and pelvis, were all reviewed today, and again the left pleural effusion noted could be malignant and I was planning to consider thoracentesis, but if the patient is going to be hospice, no plans to perform this at this point. Overall, the patient is not a great candidate for treatment of her underlying malignancy. Objective - Vital Signs Vital signs: Vital Signs Temp 98.0 F 09/26/19 08:00 Pulse 98 09/26/19 08:00 Resp 23 09/26/19 08:00 BP 102/62 09/26/19 08:00 Pulse Ox 94 L 09/26/19 08:00 Intake & Output 09/25/19 09/26/19 09/26/19 18:59 06:59 18:59 Intake Total 850 1700 Balance 850 1700 Weight 93.1 kg Intake: IV 850 1600 Rasburicase 6 mg In 50 Sodium Chloride 0.9% 46 ml @ 100 mls/hr IV ONCE ONE Rx#:[id number] Sodium Chloride 0.9% 1, 800 1600 000 ml @ 100 mls/hr IV . Q10H [facility] Rx#:[id number] Intake, IV Titration 100 Amount metroNIDAZOLE-NS PMX 500 100 mg In Saline 1 100ml.bag @ 100 mls/hr IVPB Q8H [facility] Rx#:[id number] Other: Voiding Method Diaper Diaper Diaper # Voids 1 1 - Exam GENERAL EXAM: confused, 69-year-old female patient, slow to respond, on 6 L nasal cannula, fairly comfortable in no apparent distress. HEAD: Normocephalic. EYES: Normal reaction of pupils, equal size. NOSE: Clear with pink turbinates. THROAT: No erythema or exudates. NECK: Cervical lymphadenopathy palpable, no JVD. CHEST: No chest wall deformity. LUNGS: Equal air entry with bilateral scattered rhonchi, crackles in left base, diminished. CVS: S1 and S2 normal with no audible murmur, regular rhythm. ABDOMEN: Abdominal lymphadenopathy palpable, normal bowel sounds, no guarding or rigidity.y SKIN: Drainage noted from right hip surgical site./Serous CENTRAL NERVOUS SYSTEM: Patient is confused, oriented 2 only. EXTREMITIES: There is no peripheral edema. No clubbing, no cyanosis. Peripheral pulses are intact. Serous drainage noted from the right hip surgical site Lymphatics: Multiple areas of lymphadenopathy noted in the cervical region, supraclavicular region, and in the groins bilaterally. - Labs CBC & Chem 7: 09/26/19 05:31 09/26/19 05:31 Labs: Abnormal Lab Results - Last 24 Hours (Table) 09/26/19 09/26/19 09/26/19 Range/Units 05:31 05:31 05:31 WBC 11.2 H (3.8-10.6) k/uL RBC 3.41 L (3.80-5.40) m/uL Hgb 9.5 L (11.4-16.0) gm/dL Hct 30.9 L (34.0-46.0) % MCHC 30.7 L (31.0-37.0) g/dL RDW 18.8 H (11.5-15.5) % Plt Count 457 H (150-450) k/uL Neutrophils # 10.3 H (1.3-7.7) k/uL Lymphocytes # 0.4 L (1.0-4.8) k/uL PT 24.3 H (9.0-12.0) sec INR 2.5 H (<1.2) Sodium 134 L (137-145) mmol/L Carbon Dioxide 18 L (22-30) mmol/L BUN 62 H (7-17) mg/dL Creatinine 3.02 H (0.52-1.04) mg/dL Glucose 62 L (74-99) mg/dL POC Glucose (mg/dL) (75-99) mg/dL Plasma Lactic Acid Severo (0.7-2.0) mmol/L Calcium 7.5 L (8.4-10.2) mg/dL AST 114 H (14-36) U/L ALT 39 H (4-34) U/L Alkaline Phosphatase 261 H (38-126) U/L C-Reactive Protein 213.3 H (<10.0) mg/L Total Protein 4.8 L (6.3-8.2) g/dL Albumin 2.4 L (3.5-5.0) g/dL 09/26/19 09/26/19 09/26/19 Range/Units 05:31 09:49 10:11 WBC (3.8-10.6) k/uL RBC (3.80-5.40) m/uL Hgb (11.4-16.0) gm/dL Hct (34.0-46.0) % MCHC (31.0-37.0) g/dL RDW (11.5-15.5) % Plt Count (150-450) k/uL Neutrophils # (1.3-7.7) k/uL Lymphocytes # (1.0-4.8) k/uL PT (9.0-12.0) sec INR (<1.2) Sodium (137-145) mmol/L Carbon Dioxide (22-30) mmol/L BUN (7-17) mg/dL Creatinine (0.52-1.04) mg/dL Glucose (74-99) mg/dL POC Glucose (mg/dL) 74 L (75-99) mg/dL Plasma Lactic Acid Severo 2.2 H* 2.2 H* (0.7-2.0) mmol/L Calcium (8.4-10.2) mg/dL AST (14-36) U/L ALT (4-34) U/L Alkaline Phosphatase (38-126) U/L C-Reactive Protein (<10.0) mg/L Total Protein (6.3-8.2) g/dL Albumin (3.5-5.0) g/dL Microbiology - Last 24 Hours (Table) 09/24/19 21:10 Gram Stain - Preliminary Other - Other Wound Culture - Preliminary Group D Enterococcus 09/24/19 18:18 Blood Culture - Preliminary Blood No Growth after 24 hours 09/24/19 21:10 Gram Stain - Preliminary Hip - Right Wound Culture - Preliminary Assessment and Plan Assessment: Altered mental status, weakness and dehydration secondary to poor oral intake, this is mostly suggestive of metabolic encephalopathy Acute hypoxic respiratory failure secondary to worsening multilobar pulmonary nodules and left pleural effusion Acute renal failure secondary to dehydration and poor oral intake Acute urinary tract infection History of multiple pulmonary nodules, mediastinal adenopathy, abdominal lymphadenopathy. Multiple palpable lymph nodes. History of breast cancer with previous bilateral mastectomies in 2006 Recent right hip fracture status post repair at [facility] in August 2019 recovering at [facility] History of atrial fibrillation anticoagulated with Eliquis in the past History of coronary artery disease with previous myocardial infarction History of chronic obstructive pulmonary disease Chronic and ongoing tobacco dependence of greater than 40 years Moderate sized left pleural effusion, and left basilar atelectasis, there effusion is malignant unless for otherwise. Specially with the patient having s ignificant multiple metastatic pulmonary nodules. Diabetes mellitus Hypertension Hyperlipidemia Hypothyroidism Chronic anxiety Osteoarthritis Obesity Poor overall functional performance based on the above-mentioned multiple comorbidities Recommendation: Continue present supportive care measures, Reviewed some of the laboratory studies done at [facility], no definitive diagnosis was made from the lymph nodes biopsy, Suggest comfort care measures and hospice/palliative care. My understanding a is DO NOT RESUSCITATE CODE STATUS, and hospice referral is being considered. Clinically I don't believe the patient is a good candidate for any chemo therapy. Infectious disease to address the group D enterococcus infection in the right hip surgical wound, We will continue to follow as long as the patient is inpatient. Time with Patient: Less than 30
--- NOTE | 2019-09-26 12:33 | P.PN ---
Subjective Progress Note Date: 09/26/19 This is a 69-year-old female patient of Dr. Bailey with past medical history of severe COPD and chronic hypoxic respiratory failure, bilateral pulmonary nodules with mediastinal adenopathy and intra-abdominal adenopathy consistent with metastatic disease most likely breast cancer with metastasis, history of left breast cancer and bilateral mastectomies in 2006 followed by chemotherapy and tamoxifen therapy, paroxysmal atrial fibrillation on long-term anticoagulation with eliquis, history of SD and coronary artery disease, hypertension, hyperlipidemia, generalized anxiety disorder, diabetes mellitus type 2, hypothyroidism, generalized osteoarthritis. Patient had a recent right hip fracture secondary to fall status post right hemiarthroplasty on August 25 surgery done at [facility] with Dr. Arciniega and subsequently discharged to [facility] under the care of Dr. Bailey for subacute rehab. Patient was prepared for discharge from rehab yesterday but was found to have a low blood pressure and high heart rate, mental status changes, generalized weakness and inability to stand. Discharge was held and patient was transferred to [facility] for further evaluation. Regarding patient's cancer history, she was followed at [facility] by oncology and apparently had a biopsy done and results were not known. Echocardiogram done on August 25 revealed normal LV function. No valvular heart disease. In the emergency center, patient was found to be afebrile, initial blood pressure 87/47, heart rate in the 90s, pulse ox 95% on room air. WBC 11.6, hemoglobin 9.5, platelet count 477. Sodium 133, potassium 4.7, chloride 96, CO2 23, BUN 56 creatinine 2.57, blood sugar 91. INR 2.1. Lactic acid 4.0. Total bilirubin 0.5, AST 73, ALT 26, alkaline phosphatase 215. Urinalysis cloudy nitrate and leukoesterase negative, bacteria moderate. EKG was a sinus rhythm with T-wave inversion in leads 6. Chest x-ray revealed developing multiple pulmonary nodules worsening from comparison. Interval development of a small approaching moderate left pleural effusion. This was compared to chest x-ray from August 10. Abdominal x-ray revealed nonspecific abdomen. Patient is status post 2 L of IV fluids, admitted to the cardiac stepdown unit and consult requested with Dr. Mackey regarding metastatic disease, Dr. Grider for lymph node biopsy, Dr. De La Vega for lung cancer. COVID-19 testing is pending. Patient states that she wishes to BE a no CODE STATUS. There apparently has been talk of hospice care for the patient. 09/24: CAT scan of the brain revealed possible age-related changes of atrophy and chronic small vessel ischemic changes. Patient has been evaluated by oncology and workup is for lymphoma, Dr. Grider is tentatively scheduled for lymph node biopsy on Monday. Tumor markers and ultrasound of bilateral lower extremities have been ordered. Patient has been evaluated by Dr. Dominguez with recommendations for comfort care. This morning, patient developed A. fib with RVR running up to 200 bpm. Patient was transferred into the intensive care unit where Cardizem drip was then added and cardiology consult. Additional consults include Dr. Garza and Dr. Barrera. Renal ultrasound is also been ordered and is pending. Patient is afebrile, heart rate 93, blood pressure 87/52, pulse ox 96% on 6 L nasal cannula. Repeat blood work reveals WBC of 14.4, hemoglobin 10.6, platelet count 542, INR 2.2. His sodium 133, potassium 4.6, chloride 104, CO2 18, BUN 57 creatinine 2.82, repeat lactic acid most recently 2.6. 09/25: The patient was seen today in the intensive care unit. Echocardiogram reveals EF of 60-65%, mild tricuspid regurgitation, mild pulmonary hypertension. hall tender is a sinus rhythm with PACs. Right hip x-ray revealed suspects soft tissue swelling. Osteopenia. Renal ultrasound revealed ascites. Bladder not evaluated. Simple cyst in the mid pole right kidney. Indeterminate focus noted at the lower pole of the right kidney. No hydronephrosis. Ultrasound of bilateral lower extremities negative for DVT. CAT scan of the abdomen and pelvis revealed multiple metastatic nodules at the lung bases with left lower lo be collapse and pleural effusions. Retroperitoneal adenopathy. Bilateral inguinal adenopathy. Small hepatic lesions difficult to exclude on unenhanced evaluation. Small amount of ascites. Repeat blood work reveals WBC 11.2, hemoglobin 9.5, platelet count 457. INR 2.5. Sodium 134, potassium 4.6, chloride 105, CO2 18, BUN 62 and creatinine 3.02. Blood sugar 62. Lactic acid 2.2. Total bilirubin 0.3, AST 114, ALT 39, alkaline phosphatase 261, C-reactive protein 213, albumin 2.4. Dr. Boutt has postponed biopsy due to patient's elevated INR. Patient has been afebrile, heart rate 98, blood pressure 102/62, pulse ox 94% on 6 L nasal cannula. Discussed plan of care with the patient and she states that she does not want any aggressive treatment. She agrees to hospice care. This has been discussed on previous evaluations at the snf. Discussed case with oncology. Patient's daughter Earline has been contacted and she is in agreement with hospice. She would like [facility] as daughter is not at home to take care of the patient. The patient case coordinator has been updated and referral sent to [facility]. Anticipate discharge will occur tomorrow. Objective - Vital Signs Vital signs: Vital Signs Temp 98.0 F 09/26/19 08:00 Pulse 98 09/26/19 08:00 Resp 23 09/26/19 08:00 BP 102/62 09/26/19 08:00 Pulse Ox 94 L 09/26/19 08:00 Intake & Output 09/25/19 09/26/19 09/26/19 18:59 06:59 18:59 Intake Total 850 1700 Balance 850 1700 Weight 93.1 kg Intake: IV 850 1600 Rasburicase 6 mg In 50 Sodium Chloride 0.9% 46 ml @ 100 mls/hr IV ONCE ONE Rx#:[id number] Sodium Chloride 0.9% 1, 800 1600 000 ml @ 100 mls/hr IV . Q10H [facility] Rx#:[id number] Intake, IV Titration 100 Amount metroNIDAZOLE-NS PMX 500 100 mg In Saline 1 100ml.bag @ 100 mls/hr IVPB Q8H [facility] Rx#:[id number] Other: Voiding Method Diaper Diaper Diaper # Voids 1 1 - Exam Review Of Systems: Constitutional: No fever, no chills, no night sweats. No weight change. Reports weakness, Reports fatigue Reports lethargy. Reports daytime sleepiness. EENT: No headache. No blurred vision or double vision, no loss of vision. No loss of Hearing, no ringing in the ears, no dizziness. No nasal drainage or congestion. No epistaxis. No sore throat. Lungs: No shortness of breath, cough, no sputum production. No wheezing. Cardiovascular: No chest pain, no lower extremity edema. No palpitations. No paroxysmal nocturnal dyspnea. No orthopnea. Reports lightheadedness or dizziness. No syncopal episodes. Abdominal: No abdominal pain. No nausea, vomiting. No diarrhea. No constipation. No bloody or tarry stools. No loss of appetite. Genitourinary: No dysuria, increased frequency, urgency. No urinary retention. Musculoskeletal: Reports myalgias. Reports muscle weakness, Reports gait dysfunction, no frequent falls. Reports back pain. No neck pain. Integumentary: Reports wounds, no lesions. No rash or pruritus. No unusual bruising. Neurologic: No aphasia. No facial droop. Reports change in mentation. No head injury. No headache. No paralysis. No paresthesia. Psychiatric: No depression. No anxiety. No mood swings. Endocrine: No abnormal blood sugars. No weight change. No excessive sweating or thirst. No cold intolerance. Physical examination: Gen: This is a 69-year-old female. She is resting in bed and appears to be comfortable. HEENT: Head is atraumatic, normocephalic. Pupils equal, round. Sclerae is a nicteric. NECK: Supple. No JVD. Large cervical lymphadenopathy. No thyromegaly. LUNGS: Diminished breath sounds bilaterally, symmetrical chest expansion, no wheezes, rhonchi. No intercostal retractions. HEART: Irregular rate and rhythm. No murmur. ABDOMEN: Soft. Bowel sounds are present. No masses. No tenderness. EXTREMITIES: 1+ right pedal edema. No calf tenderness. Patient has large lymph node to the right groin, several lymph nodes enlarged in the left groin. Right hip wound shows no drainage. Patient has a decubitus ulcer to the sacrum covered with dressing. NEUROLOGICAL: Patient is awake, alert and oriented to person and place, poor short-term memory, intermittently confused, poor historian. Generalized weakness - Labs CBC & Chem 7: 09/26/19 05:31 09/26/19 05:31 Labs: Abnormal Lab Results - Last 24 Hours (Table) 09/24/19 09/25/19 09/25/19 Range/Units 18:18 09:56 11:24 WBC (3.8-10.6) k/uL RBC (3.80-5.40) m/uL Hgb (11.4-16.0) gm/dL Hct (34.0-46.0) % MCHC (31.0-37.0) g/dL RDW (11.5-15.5) % Plt Count (150-450) k/uL Neutrophils # (1.3-7.7) k/uL Lymphocytes # (1.0-4.8) k/uL PT 21.4 H (9.0-12.0) sec INR 2.2 H (<1.2) APTT 39.2 H (22.0-30.0) sec Sodium (137-145) mmol/L Carbon Dioxide (22-30) mmol/L BUN (7-17) mg/dL Creatinine (0.52-1.04) mg/dL Glucose (74-99) mg/dL POC Glucose (mg/dL) (75-99) mg/dL Plasma Lactic Acid Severo 2.6 H* (0.7-2.0) mmol/L Calcium (8.4-10.2) mg/dL Iron 20 L (50-170) ug/dL % Saturation 8.77 L (12.00-45.00) Ferritin 496.2 H (10.0-291.0) ng/mL AST (14-36) U/L ALT (4-34) U/L Alkaline Phosphatase (38-126) U/L C-Reactive Protein (<10.0) mg/L Total Protein (6.3-8.2) g/dL Albumin (3.5-5.0) g/dL 09/26/19 09/26/19 09/26/19 Range/Units 05:31 05:31 05:31 WBC 11.2 H (3.8-10.6) k/uL RBC 3.41 L (3.80-5.40) m/uL Hgb 9.5 L (11.4-16.0) gm/dL Hct 30.9 L (34.0-46.0) % MCHC 30.7 L (31.0-37.0) g/dL RDW 18.8 H (11.5-15.5) % Plt Count 457 H (150-450) k/uL Neutrophils # 10.3 H (1.3-7.7) k/uL Lymphocytes # 0.4 L (1.0-4.8) k/uL PT 24.3 H (9.0-12.0) sec INR 2.5 H (<1.2) APTT (22.0-30.0) sec Sodium 134 L (137-145) mmol/L Carbon Dioxide 18 L (22-30) mmol/L BUN 62 H (7-17) mg/dL Creatinine 3.02 H (0.52-1.04) mg/dL Glucose 62 L (74-99) mg/dL POC Glucose (mg/dL) (75-99) mg/dL Plasma Lactic Acid Severo (0.7-2.0) mmol/L Calcium 7.5 L (8.4-10.2) mg/dL Iron (50-170) ug/dL % Saturation (12.00-45.00) Ferritin (10.0-291.0) ng/mL AST 114 H (14-36) U/L ALT 39 H (4-34) U/L Alkaline Phosphatase 261 H (38-126) U/L C-Reactive Protein 213.3 H (<10.0) mg/L Total Protein 4.8 L (6.3-8.2) g/dL Albumin 2.4 L (3.5-5.0) g/dL 09/26/19 09/26/19 Range/Units 05:31 09:49 WBC (3.8-10.6) k/uL RBC (3.80-5.40) m/uL Hgb (11.4-16.0) gm/dL Hct (34.0-46.0) % MCHC (31.0-37.0) g/dL RDW (11.5-15.5) % Plt Count (150-450) k/uL Neutrophils # (1.3-7.7) k/uL Lymphocytes # (1.0-4.8) k/uL PT (9.0-12.0) sec INR (<1.2) APTT (22.0-30.0) sec Sodium (137-145) mmol/L Carbon Dioxide (22-30) mmol/L BUN (7-17) mg/dL Creatinine (0.52-1.04) mg/dL Glucose (74-99) mg/dL POC Glucose (mg/dL) 74 L (75-99) mg/dL Plasma Lactic Acid Severo 2.2 H* (0.7-2.0) mmol/L Calcium (8.4-10.2) mg/dL Iron (50-170) ug/dL % Saturation (12.00-45.00) Ferritin (10.0-291.0) ng/mL AST (14-36) U/L ALT (4-34) U/L Alkaline Phosphatase (38-126) U/L C-Reactive Protein (<10.0) mg/L Total Protein (6.3-8.2) g/dL Albumin (3.5-5.0) g/dL Microbiology - Last 24 Hours (Table) 09/24/19 21:10 Gram Stain - Preliminary Other - Other Wound Culture - Preliminary Group D Enterococcus 09/24/19 18:18 Blood Culture - Preliminary Blood No Growth after 24 hours 09/24/19 21:10 Gram Stain - Preliminary Hip - Right Wound Culture - Preliminary Assessment and Plan Plan: 1. Acute renal failure and dehydration. Continue IV fluids at 50 mL per hour, avoid nephrotoxic agents, recheck electrolytes and renal function in the morning. 2. Metabolic encephalopathy with confusion most likely secondary to acute renal failure. 3. Pulmonary nodules with mediastinal adenopathy and intra-abdominal adenopathy consistent with metastatic disease most likely lymphoma but also concerned about possible breast cancer or lung cancer with metastasis. Consult with Dr. Mackey and pulmonary medicine. Hold eliquis. 4. Left pleural effusion. This was noted at [facility] admission as well. 5. SIRS and lactic acidosis with leukocytosis, hypotension, tachycardia. Patient is status post 2 L of IV fluid. Continue IV fluid at 50 mL per hour. 6. Abdominal pain and elevated liver function tests along with spots in the liver and ascites, coagulopathy. Suspicion for metastasis but elevated liver function tests may be due to hypotension, shock liver. Abdominal film revealed nonspecific abdomen. Monitor liver function tests 7. Severe COPD and chronic hypoxic respiratory failure, stable. 8. Recent acute right hip fracture status post right hemiarthroplasty completed on August 25. Wound culture is group D enterococcus. Dr. Barrera is on consult. Patient is currently on cefepime, daptomycin and Flagyl. 9. History of breast cancer and bilateral mastectomies in 2006 followed by chemotherapy and tamoxifen therapy. 10. Paroxysmal atrial fibrillation on long-term anticoagulation with eliquis. Hold eliquis due to coagulopathy. Continue Toprol-XL 25 mg daily with parameters. 11. History of SD and coronary artery disease. Continue Imdur 30 mg daily. 12. Hypertension. Continue Toprol-XL with parameters. 13. Hyperlipidemia. Continue Lipitor 10 mg at bedtime. 14. Generalized anxiety disorder. Continue Celexa 20 mg daily, Remeron 15 mg at bedtime. 15. Diabetes mellitus type 2, insulin requiring. Continue NovoLog 7035 units twice daily, NovoLog scale. Hold metformin. 16. Hypothyroidism. Continue Organ Thyroid 180 mg daily 17. Tobacco use and dependence. Nicotine patch. 18. Moderate protein calorie malnutrition. Continue Magic cups, Remeron at bedtime. 19. GI prophylaxis. Protonix. 20. DVT prophylaxis. Patient will be resumed on eliquis once biopsy is completed. 21. COVID-19 infection not present. 22. Stage II decubitus ulcer to the sacrum. Present on admission. 23. Anemia. Iron studies ordered by oncology. CODE STATUS: No code per patient wishes Discharge plan: Transfer to [facility] home tomorrow. Consult [facility]. Impression and plan of care have been directed as dictated by the signing physician. Solange Griffin nurse practitioner acting as scribe for signing physician.
--- NOTE | 2019-09-26 12:53 | PN ---
PROGRESS NOTE Patient is seen for followup for acute kidney injury. She was admitted to the hospital with mental status changes and drainage from the right hip incision from recent right hip hemiarthroplasty last month. Patient has been confused. She also has significant lymphadenopathy with previous history of breast cancer. The lymph nodes will be biopsied. Patient's blood pressure was low. Her lactic acid was elevated. She has received about 4 L of fluid bolus. Currently maintained on IV fluids. Patient has been voiding. She has been incontinent. A postvoid residual was not elevated. Her serum creatinine is slightly higher at 3.0 from 2.8 yesterday. Initial creatinine was 0.8 on 09/13/2019. PHYSICAL EXAMINATION: On examination today, blood pressure was 102/62, heart rate 98 per minute, patient is afebrile. Examination of the heart S1, S2. Examination of the lungs, decreased breath sounds at the bases. Abdomen is soft, nontender. Examination of lower extremities shows pain in the right hip area. Trace edema noted. MANAGER LEARNING exam shows patient is confused. She is moving all 4 extremities. LABS: Show sodium of 134, potassium 4.6, chloride 105, CO2 is 18, BUN 62, creatinine 3.02. Lactic acid at 2.2, hemoglobin 9.5, white cell count 11.2. ASSESSMENT: 1. Acute kidney injury secondary to hypotension, hypoperfusion, currently nonoliguric. Serum creatinine is higher today. Blood pressure is improved although still slightly on the lower side. I will add midodrine. Continue to maintain patient off of metformin. No nephrotoxic agents on board at this point. Ultrasound of the kidneys does not show any evidence of hydronephrosis. 2. Incision wound infection. Wound culture growing group D Enterococcus. Patient is maintained on antibiotics. 3. Diffuse lymphadenopathy with mediastinal lymph adenopathy, cervical and intra abdominal adenopathy and bilateral pulmonary nodules with high suspicion for metastatic process, being followed by Oncology. PLAN: Continue with IV fluids, repeat labs in a.m. Add midodrine and continue to avoid nephrotoxic agents. MMODL / IJN: [id number] /
--- NOTE | 2019-09-26 15:29 | P.PN ---
Subjective Progress Note Date: 09/26/19 Principal diagnosis: Sars, Adenopathy, Acute hypoxia. Spoke with primary team this am, patient with diffuse metastatic disease, liver, lung, diffuse adenopathy. She is in renal failure and her liver function is also trending upwards. They are planning to proceed with comfort measures only. I did leave a message with daughter Earline yesterday but have not received call back. Since patient will be referred to hospice will not correct INR unless bleeding at this time as she will not be having biopsy Objective - Vital Signs Vital signs: Vital Signs Temp 98.0 F 09/26/19 08:00 Pulse 98 09/26/19 08:00 Resp 23 09/26/19 08:00 BP 102/62 09/26/19 08:00 Pulse Ox 94 L 09/26/19 08:00 Intake & Output 09/25/19 09/26/19 09/26/19 18:59 06:59 18:59 Intake Total 850 1700 Balance 850 1700 Weight 93.1 kg Intake: IV 850 1600 Rasburicase 6 mg In 50 Sodium Chloride 0.9% 46 ml @ 100 mls/hr IV ONCE ONE Rx#:[id number] Sodium Chloride 0.9% 1, 800 1600 000 ml @ 100 mls/hr IV . Q10H [facility] Rx#:[id number] Intake, IV Titration 100 Amount metroNIDAZOLE-NS PMX 500 100 mg In Saline 1 100ml.bag @ 100 mls/hr IVPB Q8H [facility] Rx#:[id number] Other: Voiding Method Diaper Diaper Diaper # Voids 1 1 - Exam Alert, poor historian, mild distress LN: Palpable adenopathy, submandibular left jaw and bilateral inguinal nodes Heart: Irr Lungs: Diminished throughout and increased effort Abdomen: Firm, mild distention, nodularity and firm Left hip with draining incision wound LE: LLE edema RUE Edema (prior breast cancer history and side of lymphedema. mood: Frustrated, confused - Labs CBC & Chem 7: 09/26/19 05:31 09/26/19 05:31 Labs: Abnormal Lab Results - Last 24 Hours (Table) 09/26/19 09/26/19 09/26/19 Range/Units 05:31 05:31 05:31 WBC 11.2 H (3.8-10.6) k/uL RBC 3.41 L (3.80-5.40) m/uL Hgb 9.5 L (11.4-16.0) gm/dL Hct 30.9 L (34.0-46.0) % MCHC 30.7 L (31.0-37.0) g/dL RDW 18.8 H (11.5-15.5) % Plt Count 457 H (150-450) k/uL Neutrophils # 10.3 H (1.3-7.7) k/uL Lymphocytes # 0.4 L (1.0-4.8) k/uL PT 24.3 H (9.0-12.0) sec INR 2.5 H (<1.2) Sodium 134 L (137-145) mmol/L Carbon Dioxide 18 L (22-30) mmol/L BUN 62 H (7-17) mg/dL Creatinine 3.02 H (0.52-1.04) mg/dL Glucose 62 L (74-99) mg/dL POC Glucose (mg/dL) (75-99) mg/dL Plasma Lactic Acid Severo (0.7-2.0) mmol/L Calcium 7.5 L (8.4-10.2) mg/dL AST 114 H (14-36) U/L ALT 39 H (4-34) U/L Alkaline Phosphatase 261 H (38-126) U/L C-Reactive Protein 213.3 H (<10.0) mg/L Total Protein 4.8 L (6.3-8.2) g/dL Albumin 2.4 L (3.5-5.0) g/dL 09/26/19 09/26/19 09/26/19 Range/Units 05:31 09:49 10:11 WBC (3.8-10.6) k/uL RBC (3.80-5.40) m/uL Hgb (11.4-16.0) gm/dL Hct (34.0-46.0) % MCHC (31.0-37.0) g/dL RDW (11.5-15.5) % Plt Count (150-450) k/uL Neutrophils # (1.3-7.7) k/uL Lymphocytes # (1.0-4.8) k/uL PT (9.0-12.0) sec INR (<1.2) Sodium (137-145) mmol/L Carbon Dioxide (22-30) mmol/L BUN (7-17) mg/dL Creatinine (0.52-1.04) mg/dL Glucose (74-99) mg/dL POC Glucose (mg/dL) 74 L (75-99) mg/dL Plasma Lactic Acid Severo 2.2 H* 2.2 H* (0.7-2.0) mmol/L Calcium (8.4-10.2) mg/dL AST (14-36) U/L ALT (4-34) U/L Alkaline Phosphatase (38-126) U/L C-Reactive Protein (<10.0) mg/L Total Protein (6.3-8.2) g/dL Albumin (3.5-5.0) g/dL Microbiology - Last 24 Hours (Table) 09/24/19 21:10 Gram Stain - Preliminary Other - Other Wound Culture - Preliminary Group D Enterococcus 09/24/19 18:18 Blood Culture - Preliminary Blood No Growth after 24 hours 09/24/19 21:10 Gram Stain - Preliminary Hip - Right Wound Culture - Preliminary Assessment and Plan (1) History of breast cancer Current Visit: Yes Status: Acute Code(s): Z85.3 - PERSONAL HISTORY OF MALIGNANT NEOPLASM OF BREAST SNOMED Code(s): 096902716 (2) Retroperitoneal lymphadenopathy Current Visit: Yes Status: Acute Code(s): R59.0 - LOCALIZED ENLARGED LYMPH NODES SNOMED Code(s): 340893740 Plan: Assessment and recommendations: 1. Diffuse Adenopathy: - Patient initially seen in June at [facility] for abdominal pain, underwent CT scans revealing diffuse adenopathy. - In july had FNA lymph node inconclusive, will need surgical excisional lymph node biopsy as a differential includes lymphoma. therefore flow cytometry for B and T cells will also need to be sent. - She does have a history of Breast Cancer in 2006, she was unable to give much history of this. Will check tumor markers 2. Left hip incision wound draining, probable infection: - Recent hip surgery in August, further details unknown - Antibiotics per primary team - Elevated lactic acid: blood cultures Negative, Wound cultures with Group D enterococcus 3. Renal Insufficiency: Acute Renal Failure, new - Nephrology Following - Elevated Uric acid and status post Elitek on 09/25/19 4. Acute Hypoxic Respiratory Failure: - Supportive care - Pulm is following, unable to utilize contrasted CT secondary to Renal Function 5. LLE Swelling: - Doppler LE Neg bilateral 6. Normocytic Anemia: - B12 and Iron studies are decreased, although she does have enough storage with ferritin over 400, can supplement B12 - Monitor CBC 7. Mild Coagulopathy: - Prolonged INR, PT, PTT - Eliquis at home, delayed excretion (?) - Recheck coags mild increase therefore unable to do biopsy, can reverse if patient chooses to go through with biopsy 8. Elevated Uric Acid: - Likely secondary to Tumor Lysis with a picture resembling lymphoma - Will need pathology confirmation 9. Hypotension: - Per Primary Team 10. History Breast Cancer: 2007: - Tumor markers neg, picture not consistent with metastatic breast cancer Plan: 09/26/19 - Review of CT abd/pelvis with appearance of diffuse metastatic disese in lungs, liver, lymph node, likely plan is hospice comfort care. If patient and daughter choose to continue further diagnostics and possible treatment please let us know and we can assist in reversal of prolonged INR for biopsy - Discussed with Dr. Bailey Physician Attest: I have completed the full history and physical and agree with above dictation, dictated as a scribe
[2019-09-26] MEDS: SODIUM CHLORIDE 0.9% 1,000 ML IV SCH ×2 (16:16→16:36)
[2019-09-26] MEDS: LORazepam 2 MG/ML INJ IV PRN (16:26)
--- NOTE | 2019-09-26 19:35 | PN ---
PROGRESS NOTE DATE OF SERVICE: 09/26/2019 REASON FOR FOLLOW UP: Drainage from the right hip, surgical site. Positive culture. INTERVAL HISTORY: The patient is currently afebrile. The patient is breathing comfortably. Denies having any worsening pain to the right hip surgical site or any worsening drainage. No chest pain, shortness of breath or cough or any worsening abdominal pain. No diarrhea. PHYSICAL EXAMINATION: Blood pressure 102/62 with a pulse of 52, temperature 98. She is 94% on 6 L nasal cannula. General description is an elderly female lying in bed in no distress. Respiratory system: Unlabored breathing, clear to auscultation anteriorly. HEART: S1, S2. Regular rate and rhythm. ABDOMEN: Soft, mildly distended. No guarding or rigidity. Right hip currently with some swelling but no redness or any foul-smelling drainage. LABS: BUN of 62, creatinine 3.2. Lactic acid 2.2. CT of abdomen and pelvis did not show any acute colitis or abscess. Wound culture showing group D Enterococcus. DIAGNOSTIC IMPRESSION AND PLAN: Patient with leukocytosis and lactic acidosis, likely multifactorial with concern for possible intraabdominal source. CT abdomen and pelvis did not show any acute finding, now with right hip surgical site showing some drainage. Culture positive for enterococcus. We will add daptomycin to cover for it. Obtained opinion from orthopedics. Continue cefepime and monitor clinical course closely. MMODL / IJN: [id number] /
--- NOTE | 2019-09-26 20:14 | PN ---
PROGRESS NOTE This is a 69-year-old lady who is admitted to hospital with dehydration and Cardiology was consulted because of paroxysmal atrial fibrillation. Patient, this morning, appears intermittently confused. Denies any chest pain or difficulty in breathing. She is on 6 L nasal O2 with an O2 saturation of 94%. EXAM: Heart rate is 90 beats per minute. Blood pressure is 102/60. Respiratory rate 18. Chest exam reveals good air entry bilaterally. Heart exam reveals first and second heart sounds. No gallop. No murmur. ABDOMEN: Soft. Exam of extremities did not reveal any edema. LAB: Show that the hemoglobin is 9.5. INR is 2.5. Potassium is 4.6. Creatinine is 3. ASSESSMENT: 1. Paroxysmal atrial fibrillation. 2. Coagulopathy. 3. Possible metastatic breast cancer or lymphoma. PLAN: Patient is stable from cardiac standpoint. We will hold the Eliquis at this time given the elevated INR and elevated liver enzymes which could be due to liver METS. MMODL / IJN: [id number] /
[2019-09-26] MEDS: MIRTAZAPINE 15 MG TAB PO SCH (21:00)
[2019-09-27] MEDS: metroNIDAZOLE-NS PMX 500 MG in SALINE 1 100ML.BAG IVPB SCH ×2 (01:53→10:52)
[2019-09-27] MEDS: HYDROcodone/APAP 10-325MG 1 EACH TAB PO PRN (02:28)
[2019-09-27 05:44] LABS: Anisocytosis Slight; Basophils % (A) 0 %; Eosinophils # (A) 0.1 k/uL (0-0.7); Eosinophils % (A) 1 %; HCT 29.1 % (34.0-46.0); Hypochromasia Marked; Lymphocytes # (A) 0.4 k/uL (1.0-4.8); Lymphocytes % (A) 3 %; MCH 28.2 pg (25.0-35.0); MCHC 30.9 g/dL (31.0-37.0); MCV 91.4 fL (80.0-100.0); Mean Platelet Volume 8.1; Monocytes # (A) 0.3 k/uL (0-1.0); Monocytes % (A) 3 %; Neutrophils # (A) 10.2 k/uL (1.3-7.7); Neutrophils % (A) 92 %; Platelet Count 444 k/uL (150-450); RBC 3.18 m/uL (3.80-5.40); RDW 18.8 % (11.5-15.5); WBC 11.1 k/uL (3.8-10.6)
[2019-09-27 05:46] LABS: Prothrombin Time 10.3 sec (9.0-12.0)
[2019-09-27 05:53] LABS: Calcium 7.5 mg/dL (8.4-10.2); Potassium 4.7 mmol/L (3.5-5.1)
[2019-09-27] MEDS: THYROID, PORK 30 MG TAB PO SCH (06:49)
[2019-09-27] MEDS: MIDODRINE 5 MG TAB PO SCH (06:49)
[2019-09-27] MEDS ORDERED: PANTOPRAZOLE 40 MG TABLET PO SCH (09:00)
--- NOTE | 2019-09-27 09:01 | P.DS ---
Providers Date of admission: 09/23/19 22:33 Expected date of discharge: 09/27/19 Attending physician: Willard Bailey Consults: 09/23/19 22:34 Consult Physician Routine Consulting Provider: Jerome Grider Consult Reason/Comments: Evaluate for possible biopsy right inguinal region or left cervical region Do you want consulting provider notified?: Yes, Notify in am Consult Physician Urgent Consulting Provider: Cuong Mackey Consult Reason/Comments: oncological care Do you want consulting provider notified?: Yes 09/24/19 10:02 Consult Physician Routine Consulting Provider: Fay De La Vega Consult Reason/Comments: lung ca w mets Do you want consulting provider notified?: Yes 09/24/19 16:07 Consult Physician Routine Consulting Provider: Holli Garza Consult Reason/Comments: Renal insufficiency, current work up for lymphoma Do you want consulting provider notified?: Yes 09/24/19 21:05 Consult Physician Routine Consulting Provider: Juan Barrera Consult Reason/Comments: increased lactic acid, fevers, left hip infection Do you want consulting provider notified?: Yes 09/25/19 06:18 Consult Physician Stat Consulting Provider: Rahul Ramirez Consult Reason/Comments: A fib rvr Do you want consulting provider notified?: Yes Primary care physician: Willard Bailey [facility] Course: This is a 69-year-old female patient of Dr. Bailey with past medical history of severe COPD and chronic hypoxic respiratory failure, bilateral pulmonary nodules with mediastinal adenopathy and intra-abdominal adenopathy consistent with meta static disease most likely breast cancer with metastasis, history of left breast cancer and bilateral mastectomies in 2006 followed by chemotherapy and tamoxifen therapy, paroxysmal atrial fibrillation on long-term anticoagulation with eliquis, history of [place] and coronary artery disease, hypertension, hyperlipidemia, generalized anxiety disorder, diabetes mellitus type 2, hypothyroidism, generalized osteoarthritis. Patient had a recent right hip fracture secondary to fall status post right hemiarthroplasty on August 25 surgery done at [facility] with Dr. Arciniega and subs equently discharged to [facility] under the care of Dr. Bailey for subacute rehab. Patient was prepared for discharge from rehab yesterday but was found to have a low blood pressure and high heart rate, mental status changes, generalized weakness and inability to stand. Discharge was held and patient was transferred to [facility] for further evaluation. Regarding patient's cancer history, she was followed at [facility] by oncology and apparently had a biopsy done and results were not known. Echocardiogram done on August 25 revealed normal LV function. No valvular heart disease. In the emergency center, patient was found to be afebrile, initial blood pressure 87/47, heart rate in the 90s, pulse ox 95% on room air. WBC 11.6, hemoglobin 9.5, platelet count 477. Sodium 133, potassium 4.7, chloride 96, CO2 23, BUN 56 creatinine 2.57, blood sugar 91. INR 2.1. Lactic acid 4.0. Total bilirubin 0.5, AST 73, ALT 26, alkaline phosphatase 215. Urinalysis cloudy nitrate and leukoesterase negative, bacteria moderate. EKG was a sinus rhythm with T-wave inversion in leads 6. Chest x-ray revealed developing multiple pulmonary nodules worsening from comparison. Interval development of a small approaching moderate left pleural effusion. This was compared to chest x-ray from August 10. Abdominal x-ray revealed nonspecific abdomen. Patient is status post 2 L of IV fluids, admitted to the cardiac stepdown unit and consult requested with Dr. Mackey regarding metastatic disease, Dr. Grider for lymph node biopsy, Dr. De La Vega for lung cancer. COVID-19 testing is pending. Patient states that she wishes to BE a no CODE STATUS. There apparently has been talk of hospice care for the patient. 09/24: CAT scan of the brain revealed possible age-related changes of atrophy and chronic small vessel ischemic changes. Patient has been evaluated by oncology and workup is for lymphoma, Dr. Grider is tentatively scheduled for lymph node biopsy on Monday. Tumor markers and ultrasound of bilateral lower extremities have been ordered. Patient has been evaluated by Dr. Dominguez with recommendations for comfort care. This morning, patient developed A. fib with RVR running up to 200 bpm. Patient was transferred into the intensive care unit where Cardizem drip was then added and cardiology consult. Additional consults include Dr. Garza and Dr. Barrera. Renal ultrasound is also been ordered and is pending. Patient is afebrile, heart rate 93, blood pressure 87/52, pulse ox 96% on 6 L nasal cannula. Repeat blood work reveals WBC of 14.4, hemoglobin 10.6, platelet count 542, INR 2.2. His sodium 133, potassium 4.6, chloride 104, CO2 18, BUN 57 creatinine 2.82, repeat lactic acid most recently 2.6. 09/25: The patient was seen today in the intensive care unit. Echocardiogram reveals EF of 60-65%, mild tricuspid regurgitation, mild pulmonary hypertension. 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 Right hip x-ray revealed suspects soft tissue swelling. Osteopenia. Renal ultrasound revealed ascites. Bladder not evaluated. Simple cyst in the mid pole right kidney. Indeterminate focus noted at the lower pole of the right kidney. No hydronephrosis. Ultrasound of bilateral lower extremities negative for DVT. CAT scan of the abdomen and pelvis revealed multiple metastatic nodules at the lung bases with left lower lobe collapse and pleural effusions. Retroperitoneal adenopathy. Bilateral inguinal adenopathy. Small hepatic lesions difficult to exclude on unenhanced evaluation. Small amount of ascites. Repeat blood work reveals WBC 11.2, hemo globin 9.5, platelet count 457. INR 2.5. Sodium 134, potassium 4.6, chloride 105, CO2 18, BUN 62 and creatinine 3.02. Blood sugar 62. Lactic acid 2.2. Total bilirubin 0.3, AST 114, ALT 39, alkaline phosphatase 261, C-reactive protein 213, albumin 2.4. Dr. Grider has postponed biopsy due to patient's elevated INR. Patient has been afebrile, heart rate 98, blood pressure 102/62, pulse ox 94% on 6 L nasal cannula. Discussed plan of care with the patient and she states that she does not want any aggressive treatment. She agrees to hospice care. This has been [facility] Discussed case with oncology. Patient's daughter Earline has been contacted and she is in agreement with hospice. She would like [facility] home as daughter is not at home to take care of the patient. The social work case manager has been updated and referral sent to [facility]. Anticipate discharge will occur tomorrow. 09/26: Patient's daughters made arrangements for [facility] at home. Patient would like to be discharged today before noon. Patient will be discharged home today in stable condition. Discharge diagnoses: 1. Acute renal failure and dehydration. 2. Metabolic encephalopathy with confusion most likely secondary to acute renal failure. 3. Pulmonary nodules with mediastinal adenopathy and intra-abdominal adenopathy consistent with metastatic disease most likely lymphoma but also concerned about possible breast cancer or lung cancer with metastasis. 4. Left pleural effusion. 5. SIRS and lactic acidosis with leukocytosis, hypotension, tachycardia. 6. Abdominal pain and elevated liver function tests along with spots in the liver and ascites, coagulopathy. Suspicion for metastasis but elevated liver function tests may be due to hypotension, shock liver. 7. Severe COPD and chronic hypoxic respiratory failure, stable. 8. Recent acute right hip fracture status post right hemiarthroplasty completed on August 25. 9. History of breast cancer and bilateral mastectomies in 2006 followed by chemotherapy and tamoxifen therapy. 10. Paroxysmal atrial fibrillation on long-term anticoagulation with eliquis. 11. History of [place] and coronary artery disease. 12. Hypertension. 13. Hyperlipidemia. 14. Generalized anxiety disorder. 15. Diabetes mellitus type 2, insulin requiring. 16. Hypothyroidism. 17. Tobacco use and dependence. 18. Moderate protein calorie malnutrition. 19. Anemia of chronic disease. 20. COVID-19 infection not present. 21. Stage II decubitus ulcer to the sacrum. Discharge plan: Home with [facility] Impression and plan of care have been directed as dictated by the signing physician. Solange Griffin nurse practitioner acting as scribe for signing physician. Patient Condition at Discharge: Good Plan - Discharge Summary New Discharge Prescriptions: New LORazepam ORAL CONC [Ativan Intensol] 2 mg PO Q4HR PRN #30 ml PRN Reason: Anxiety Atropine Ophth Soln 1% 5Ml [Isopto Atropine 1% 5Ml] 2 drops PO Q4HR PRN #1 bottle PRN Reason: Secretions MORPHINE ORAL GRAYSON CONC 20mg/mL [Roxanol Oral Soln Conc 20MG/ML] 5 mg PO Q4H PRN #30 ml PRN Reason: Pain Midodrine [ProAmatine] 5 mg PO AC-BID #60 tab Continue Isosorbide Mononitrate [Isosorbide Mononitrate ER] 30 mg PO DAILY@0800 Thyroid,Pork [Bicknell Thyroid] 180 mg PO DAILY@0600 Citalopram Hydrobromide [CeleXA] 20 mg PO DAILY@0800 Magnesium Hydroxide [Milk of Magnesia] 2,400 mg PO DAILY PRN PRN Reason: Constipation Acetaminophen [Tylenol] 650 mg PO Q4H PRN PRN Reason: Pain Or Fever > 100.5 Magic Cup 1 can PO TID@0800,1200,1700 Docusate [Colace] 100 mg PO BID@0800,1700 Mirtazapine [Remeron] 15 mg PO HS@2100 Nicotine 14Mg/24Hr Patch [Habitrol] 1 patch TRANSDERM DAILY@0800 Metoprolol Succinate [Toprol XL] 25 mg PO DAILY@0800 Discontinued Insulin NPH Hum/Reg Insulin Hm [Novolin 70-30 Flexpen] 5 units SQ BID@0800,1700 Atorvastatin Calcium [Lipitor] 10 mg PO HS@2100 metFORMIN HCL 1,000 mg PO BID@0800,1700 Apixaban [Eliquis] 5 mg PO BID@0800,1700 HYDROcodone/APAP 10-325MG [Neosho 10-325] 1 tab PO Q6HR PRN PRN Reason: Pain Loperamide HCl [Imodium A-D] 2 - 4 mg PO DIRECTED PRN PRN Reason: Diarrhea Na Phos,M-B/Na Phos,Di-Ba [Fleet Adult] 133 ml RECTAL DAILY PRN PRN Reason: Constipation Bisacodyl [Dulcolax] 10 mg RECTAL DAILY PRN PRN Reason: Constipation traMADol HCL 50 mg PO Q6H PRN PRN Reason: Breakthrough Pain Discharge Medication List Citalopram Hydrobromide [CeleXA] 20 mg PO DAILY@0800 08/11/19 [History] Isosorbide Mononitrate [Isosorbide Mononitrate ER] 30 mg PO DAILY@0800 08/11/19 [History] Thyroid,Pork [Bicknell Thyroid] 180 mg PO DAILY@0600 08/11/19 [History] Acetaminophen [Tylenol] 650 mg PO Q4H PRN 09/23/19 [History] Docusate [Colace] 100 mg PO BID@0800,1700 09/23/19 [History] Magic Cup 1 can PO TID@0800,1200,1700 09/23/19 [History] Magnesium Hydroxide [Milk of Magnesia] 2,400 mg PO DAILY PRN 09/23/19 [History] Metoprolol Succinate [Toprol XL] 25 mg PO DAILY@0800 09/23/19 [History] Mirtazapine [Remeron] 15 mg PO HS@2100 09/23/19 [History] Nicotine 14Mg/24Hr Patch [Habitrol] 1 patch TRANSDERM DAILY@0800 09/23/19 [History] Atropine Ophth Soln 1% 5Ml [Isopto Atropine 1% 5Ml] 2 drops PO Q4HR PRN #1 bottle 09/26/19 [Rx] LORazepam ORAL CONC [Ativan Intensol] 2 mg PO Q4HR PRN #30 ml 09/26/19 [Rx] MORPHINE ORAL GRAYSON CONC 20mg/mL [Roxanol Oral Soln Conc 20MG/ML] 5 mg PO Q4H PRN #30 ml 09/26/19 [Rx] Midodrine [ProAmatine] 5 mg PO AC-BID #60 tab 09/27/19 [Rx] Follow up Appointment(s)/Referral(s): Willard Bailey MD [Primary Care Provider] - As Needed [facility] Visiting Nurse, [NON-STAFF] - As Needed ([facility]) Discharge Disposition: HOME WITH HOSPICE
[2019-09-27] MEDS: NICOTINE 14MG/24HR PATCH TRANSDERM SCH (10:03)
[2019-09-27] MEDS: INSULN ASP PRT/INSULIN ASPART 100 UNIT/ML 10 ML VIAL SQ SCH (10:03)
[2019-09-27] MEDS: DOCUSATE 100 MG CAP PO SCH (10:03)
[2019-09-27] MEDS: METOPROLOL SUCCINATE (ER) 25 MG TAB.ER.24H PO SCH (10:47)
[2019-09-27] MEDS: LORazepam 2 MG/ML INJ IV PRN (10:47)
[2019-09-27] MEDS: ISOSORBIDE MONONITRATE ER 30 MG TAB.ER.24H PO SCH (10:52)
[2019-09-27] MEDS: CITALOPRAM HYDROBROMIDE 20 MG TAB PO SCH (10:52)
[2019-09-27] MEDS: CEFEPIME 2 GM in SODIUM CHLORIDE 0.9% 100 ML IVPB SCH (10:52)
[2019-09-27] MEDS: SODIUM CHLORIDE 0.9% 1,000 ML IV SCH (10:53)
--- NOTE | 2019-09-27 12:09 | PN ---
PROGRESS NOTE Patient is seen for followup for acute kidney injury. Patient is currently lying in bed, she is comfortable. She is being considered for hospice care. PHYSICAL EXAMINATION: On examination today, blood pressure was 96/51, heart rate 98 per minute, patient is afebrile. Examination of the heart, S1, S2. Examination of the lungs, decreased breath sounds at bases. Abdomen is soft, nontender. Examination of the lower extremities shows edema 2+ bilaterally. 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 She is moving all 4 extremities. LABS: Show sodium 133, potassium 4.7, chloride 105, CO2 is 18, serum creatinine 2.86. ASSESSMENT: 1. Acute kidney injury associated with hypotension, hypoperfusion. ATN nonoliguric with the improvement in renal function. 2. Diffuse lymphadenopathy with mediastinal lymphadenopathy and intraabdominal adenopathy with pulmonary nodules, highly suspicious for metastatic process, being followed by Oncology. The patient has a history of breast cancers previously, status post bilateral mastectomies. PLAN: Continue IV fluids at a decreased rate. Agree with plans for hospice care. MMODL / IJN: [id number] /
--- NOTE | 2019-09-27 12:53 | P.PN ---
Subjective Progress Note Date: 09/27/19 Principal diagnosis: Acute dehydration, acute on chronic hypoxic respiratory failure secondary to COPD, metastatic nodules involving both lungs, and left pleural effusion. This is a 69-year-old female patient who follows with Dr. Nuñez as her primary care provider. She has a history of diabetes mellitus, hypertension, hyperlipidemia, hypothyroidism, atrial fibrillation anticoagulated with Eliquis, coronary artery disease with previous KS, breast cancer with bilateral mast ectomies in 2006. She also is known to have multiple pulmonary nodules, mediastinal adenopathy, abdominal lymphadenopathy. She had been seen by our group including Dr. De La Vega at one point in August 2019 and again later that same month by Dr. Dominguez at [facility] after sustaining a hip fracture with surgical repair and subsequent transfer to [facility] for rehabilitation. Apparently she had done at [facility] prior to that. The details of which were unclear. The patient was quite confused as to whether or not she had any previous lung biopsy there as well. She was brought here to the emergency room last evening with concerns regarding dehydration. She had had a poor appetite and decreased oral intake while recovering in [facility]. She is seen today in consultation in the emergency room. She is currently awake and alert but somewhat confused to time and place. She is having some abdominal discomfort. Abdominal x-ray was nonspecific. Chest x-ray shows multiple pulmonary nodules worsening in comparison to 08/11/2019 and a small to moderate left pleural effusion. White count 12.0. Hemoglobin 9.3. Sodium 136. Potassium 4.4. BUN 56. Creatinine 2.51. Lactic acid 3.1. AST 73. ALT 26. Urine with moderate bacteria. CoVID 19 screen pending. Patient was reevaluated today on 09/25/19, patient was transferred to the ICU as a selective overflow because she developed atrial fibrillation with RVR while on the medical floor. Patient was seen by cardiology, placed on Cardizem drip, and she is now on Cardizem at 5 mg per hour. Patient is now in sinus rhythm, rate is 93/m. The patient is requesting to be sent home, patient is a bit confused, and after reviewing her overall status, I honestly believe the patient should be sent home with hospice. However she was seen by other consultants/including oncology, and now the recommendation is to proceed with lymph node biopsy from the right groin although the patient is not in any shape for any chemotherapy considering her overall clinical status. Patient also has multiple pulmonary nodules these are felt to be metastatic nodules most likely from breast cancer and she may have underlying lymphoma. CBC today is relatively unremarkable, her BUN is 57 creatinine 2.82, lactic acid is 2.6. No documented fever since admission, however I will recommend culturing the fluid from her hip. Since she has some ongoing drainage at the surgical site. Reevaluated today on 09/26/19, patient is basically about the same, intermittent episodes of confusion, patient was supposed to have inguinal lymph node biopsy today, however her INR was noted to be elevated at 2.5. This has been canceled, and my understanding that the patient is going to be a hospice patient at home. I was planning to consider left-sided thoracentesis, but considering the patient is being considered for hospice, I will canceled plans for left sided thoracentesis. Patient was seen by infectious disease, and she had positive culture for group D enterococcus from the drainage of her right hip. Infectious disease is addressing her antibiotic, presently on cefepime and Flagyl, may have to consider vancomycin since the patient is ALLERGIC to penicillin. Her IV fluid is at 100 mL per hour, she is on 6 L via nasal cannula, O2 saturations 94%. Patient remains as an overflow in the ICU. Chest x-ray CT of the abdomen and pelvis, were all reviewed today, and again the left pleural effusion noted could be malignant and I was planning to consider thoracentesis, but if the patient is going to be hospice, no plans to perform this at this point. Overall, the patient is not a great candidate for treatment of her underlying malignancy. On 09/27/19, patient remains overflow in the ICU, and apparently in the last 2 days arrangements have been made for patient to go to [facility] at home. Discharge planning in progress. Objective - Vital Signs Vital signs: Vital Signs Temp 98.1 F 09/26/19 21:00 Pulse 98 09/27/19 01:00 Resp 20 09/27/19 01:00 BP 96/51 09/27/19 01:00 Pulse Ox 96 09/27/19 01:00 Intake & Output 09/26/19 09/27/19 09/27/19 18:59 06:59 18:59 Intake Total 800 1600 Balance 800 1600 Weight 96 kg Intake: IV 800 1600 Sodium Chloride 0.9% 1, 800 1600 000 ml @ 100 mls/hr IV . Q10H [facility] Rx#:[id number] Other: Voiding Method Diaper Diaper # Voids 2 1 - Exam GENERAL EXAM: confused, 69-year-old female patient, slow to respond, on 6 L nasal cannula, fairly comfortable in no apparent distress. HEAD: Normocephalic. EYES: Normal reaction of pupils, equal size. NOSE: Clear with pink turbinates. THROAT: No erythema or exudates. NECK: Cervical lymphadenopathy palpable, no JVD. CHEST: No chest wall deformity. LUNGS: Equal air entry with bilateral scattered rhonchi, crackles in left base, diminished. CVS: S1 and S2 normal with no audible murmur, regular rhythm. ABDOMEN: Abdominal lymphadenopathy palpable, normal bowel sounds, no guarding or rigidity.y SKIN: Drainage noted from right hip surgical site./Serous CENTRAL NERVOUS SYSTEM: Patient is confused, oriented 2 only. EXTREMITIES: There is no peripheral edema. No clubbing, no cyanosis. Peripheral pulses are intact. Serous drainage noted from the right hip surgical site Lymphatics: Multiple areas of lymphadenopathy noted in the cervical region, supraclavicular region, and in the groins bilaterally. - Labs CBC & Chem 7: 09/27/19 04:41 09/27/19 04:41 Labs: Abnormal Lab Results - Last 24 Hours (Table) 09/27/19 09/27/19 Range/Units 04:41 04:41 WBC 11.1 H (3.8-10.6) k/uL RBC 3.18 L (3.80-5.40) m/uL Hgb 9.0 L (11.4-16.0) gm/dL Hct 29.1 L (34.0-46.0) % MCHC 30.9 L (31.0-37.0) g/dL RDW 18.8 H (11.5-15.5) % Neutrophils # 10.2 H (1.3-7.7) k/uL Lymphocytes # 0.4 L (1.0-4.8) k/uL Sodium 133 L (137-145) mmol/L Carbon Dioxide 18 L (22-30) mmol/L BUN 66 H (7-17) mg/dL Creatinine 2.86 H (0.52-1.04) mg/dL Calcium 7.5 L (8.4-10.2) mg/dL Microbiology - Last 24 Hours (Table) 09/24/19 21:10 Gram Stain - Final Other - Other Wound Culture - Final Enterococcus faecalis Amaya albicans 09/24/19 21:10 Anaerobic Culture - Preliminary Coccyx 09/24/19 21:10 Anaerobic Culture - Preliminary Hip - Right 09/24/19 18:18 Blood Culture - Preliminary Blood No Growth after 48 hours 09/24/19 21:10 Gram Stain - Final Hip - Right Wound Culture - Final Assessment and Plan Assessment: Altered mental status, weakness and dehydration secondary to poor oral intake, this is mostly suggestive of metabolic encephalopathy Acute hypoxic respiratory failure secondary to worsening multilobar pulmonary nodules and left pleural effusion Acute renal failure secondary to dehydration and poor oral intake Acute urinary tract infection History of multiple pulmonary nodules, mediastinal adenopathy, abdominal lymphadenopathy. Multiple palpable lymph nodes. History of breast cancer with previous bilateral mastectomies in 2006 Recent right hip fracture status post repair at [facility] in August 2019 recovering at extended care facility History of atrial fibrillation anticoagulated with Eliquis in the past History of coronary artery disease with previous myocardial infarction History of chronic obstructive pulmonary disease Chronic and ongoing tobacco dependence of greater than 40 years Moderate sized left pleural effusion, and left basilar atelectasis, there e ffusion is malignant unless for otherwise. Specially with the patient having significant multiple metastatic pulmonary nodules. Diabetes mellitus Hypertension Hyperlipidemia Hypothyroidism Chronic anxiety Osteoarthritis Obesity Poor overall functional performance based on the above-mentioned multiple comorbidities Recommendation: Agree with plans for hospice, patient will be discharged home today. Time with Patient: Less than 30
[2019-09-27 13:22] VITALS: BP 100/55; PULSE 106; RESP 28; TEMP 98.2
--- NOTE | 2019-09-27 16:25 | PN ---
PROGRESS NOTE CARDIOLOGY FOLLOW-UP NOTE: Twyla is a 69-year-old lady with possible metastatic breast cancer and paroxysmal atrial fibrillation. She was admitted to hospital with dehydration and confusion. We were consulted because of the atrial fibrillation. This morning she remains in sinus rhythm, appears intermittently confused. PHYSICAL EXAMINATION: Vital signs are stable. Chest exam reveals good air entry bilaterally. Heart exam reveals first and second heart sounds. No gallop. Examination of extremities did not reveal any edema. Peripheral pulses are felt. LABS: Labs show that the hemoglobin is normal. Potassium is 4.7. BUN is 66. Creatinine is 2.8. INR is down to 1. ASSESSMENT: 1. Paroxysmal atrial fibrillation. 2. Breast cancer with possible metastases, possible lymphoma. PLAN: Continue current medications. She is not a candidate for anticoagulation, given the concerns about coagulopathy. We will see the patient on an as-needed basis. MMODL / IJN: [id number] /
== END 2019-09-27 14:33 | disposition hospice, home (50) | DRG 682 ==
LOC: EC 20:04 → 3SCARD 22:33 → 4SSUR 09-24 13:56 → 5NMEDONC 09-24 15:16 → 2SICU 09-25 06:54
PROVIDERS: ADMIT Internal Medicine Geriatric Medicine; ATTEND Internal Medicine Geriatric Medicine
DX: N17.0 Acute kidney failure with tubular necrosis (principal); G93.41 Metabolic encephalopathy; J96.21 Acute and chronic respiratory failure with hypoxia; E44.0 Moderate protein-calorie malnutrition; C77.2 Secondary and unspecified malignant neoplasm of intra-abdominal lymph nodes; C77.1 Secondary and unspecified malignant neoplasm of intrathoracic lymph nodes; N39.0 Urinary tract infection, site not specified; D68.9 Coagulation defect, unspecified; E87.2 Acidosis; C78.02 Secondary malignant neoplasm of left lung; C78.01 Secondary malignant neoplasm of right lung; C85.90 Non-Hodgkin lymphoma, unspecified, unspecified site; J98.11 Atelectasis; J91.0 Malignant pleural effusion; T81.41XA Infection following a procedure, superficial incisional surgical site, initial encounter; R18.8 Other ascites; C78.7 Secondary malignant neoplasm of liver and intrahepatic bile duct; R65.10 Systemic inflammatory response syndrome (SIRS) of non-infectious origin without acute organ dysfunction; Z11.59 Encounter for screening for other viral diseases; L89.152 Pressure ulcer of sacral region, stage 2; I27.20 Pulmonary hypertension, unspecified; I95.9 Hypotension, unspecified; Z66 Do not resuscitate; Z51.5 Encounter for palliative care; J44.9 Chronic obstructive pulmonary disease, unspecified; I48.0 Paroxysmal atrial fibrillation; E11.9 Type 2 diabetes mellitus without complications; Z79.4 Long term (current) use of insulin; E86.0 Dehydration; F17.210 Nicotine dependence, cigarettes, uncomplicated; R00.0 Tachycardia, unspecified; M15.9 Polyosteoarthritis, unspecified; I25.10 Atherosclerotic heart disease of native coronary artery without angina pectoris; I10 Essential (primary) hypertension; F41.1 Generalized anxiety disorder; E03.9 Hypothyroidism, unspecified; D63.0 Anemia in neoplastic disease; E78.5 Hyperlipidemia, unspecified; E66.9 Obesity, unspecified; B95.2 Enterococcus as the cause of diseases classified elsewhere; I07.1 Rheumatic tricuspid insufficiency; M85.80 Other specified disorders of bone density and structure, unspecified site; N28.1 Cyst of kidney, acquired; R32 Unspecified urinary incontinence; I25.2 Old myocardial infarction; Z68.30 Body mass index [BMI] 30.0-30.9, adult; Z79.01 Long term (current) use of anticoagulants; Z79.899 Other long term (current) drug therapy; Z91.81 History of falling; Z90.13 Acquired absence of bilateral breasts and nipples; Z85.3 Personal history of malignant neoplasm of breast; Z87.81 Personal history of (healed) traumatic fracture; Z96.641 Presence of right artificial hip joint; Z90.49 Acquired absence of other specified parts of digestive tract; Z92.21 Personal history of antineoplastic chemotherapy; Z98.61 Coronary angioplasty status; Z91.041 Radiographic dye allergy status; Z88.0 Allergy status to penicillin; Z88.8 Allergy status to other drugs, medicaments and biological substances; Z80.1 Family history of malignant neoplasm of trachea, bronchus and lung
CPT/HCPCS: 36415; 70450; 71045; 71046; 73501; 74018; 74176; 76770; 80048; 80053; 81001; 82607; 82728; 82746; 83540; 83550; 83605; 83615; 83735; 84550; 85025; 85045; 85384; 85610; 85730; 86140; 86300; 87040; 87070; 87075; 87077; 87186; 87205; 87635; 93005; 93306; 93970; 96361; 96374; 99285